=== PATIENT | female | born 1945 | race Caucasian/White ===

== ENCOUNTER 2017-03-28 00:56 | Emergency (ER) | payer OTHER ==
[~2017-03-28] VITALS: Ht 167.6 cm; Wt 77.0 kg
[~2017-03-28 00:56] MED LIST: ALPR-138 PO; CEPH500C3 PO; LEVO.1 PO
[2017-03-28 01:02] VITALS: BP 111/67; PULSE 96; RESP 16; TEMP 98.2; O2SAT 97
[2017-03-28] MEDS ORDERED: DIPHTH/TETANUS/ACEL PERTUSSIS (BOOSTER) 0.5 ML VIAL/PFS IM ONE (01:30)
[2017-03-28] MEDS ORDERED: LEVO.1 PO (01:39)
[2017-03-28] MEDS ORDERED: ALPR.25 PO (01:39)
[2017-03-28] MEDS ORDERED: METH10TA PO (01:39)
[2017-03-28] MEDS ORDERED: HYDR12.57 PO (01:39)
[2017-03-28] MEDS ORDERED: LISI10TA3 PO (01:39)
--- NOTE | 2017-03-28 01:43 | RADRPT ---
EXAM DATE/TIME: 03/28/2017 01:19 [facility] COMPARISON: No previous studies available for comparison. INDICATIONS : Pt has puncture wound to bottom of right foot- thinks may have stepped on a nail. Pain, redness and s welling x 3 days. MEDICAL HISTORY : None. SURGICAL HISTORY : Appendectomy. ENCOUNTER: Initial ACUITY: 3 days PAIN SCORE: 7/10 LOCATION: Right Foot FINDINGS: Three view examination of the right foot demonstrates no soft tissue swelling, dislocation, or fractu re. The tarsal bones appear intact. The interphalangeal and metatarsophalangeal joints are intact. The calcaneus is intact. Bony mineralization is normal. CONCLUSION: No acute fracture. No radiopaque foreign body. Edwardo Lehman MD on March 28, 2017 at 1:41 Board Certified Radiologist. This report was verified electronically.
[2017-03-28] MEDS ORDERED: BACT400T PO (01:53)
[2017-03-28] MEDS ORDERED: CEPH-460 PO (01:53)
--- NOTE | 2017-03-28 01:53 | PD ---
HPI Chief Complaint: Skin Problem Time Seen by Provider: 01:18 Travel History International Travel<30 days: No Contact w/Intl Traveler<30days: No Traveled to known affect area: No History of Present Illness HPI Patient is a 71-year-old female with a history of thyroid disorder presents emergency department for evaluation of right foot swelling and laceration on the plantar surface of her right foot. Patient states she was walking barefoot in the yard when she stepped on a board with stacy nails. This happened 2 days ago. She denies any fevers but noticed that her right foot is started to swallow. Denies any chest pain shortness of breath. Patient states that the entire wooden structure of the board was intact and doesn't think she has a splinter in her foot. Tetanus status is unknown. PFSH Past Medical History Anxiety: Yes Diminished Hearing: No Thyroid Disease: Yes (HYPOTHYROID) Tetanus Vaccination: > 5 Years Past Surgical History Appendectomy: Yes Other Surgery: Yes (NOSE RESECTION) Social History Alcohol Use: Yes (OCC) Tobacco Use: No Substance Use: No Allergies-Medications (Allergen,Severity, Reaction): Coded Allergies: No Known Allergies (Verified , 03/28/17) Reported Meds & Prescriptions Reported Meds & Active Scripts Active Bactrim (Sulfamethoxazole-Trimethoprim) 400-80 Mg Tab 1 Tab PO BID 7 Days Keflex (Cephalexin) 500 Mg Cap 500 Mg PO Q6H 7 Days Reported Hydrochlorothiazide 12.5 Mg Cap 12.5 Mg PO DAILY Lisinopril 10 Mg Tab 10 Mg PO DAILY Xanax (Alprazolam) 0.25 Mg Tab 0.25 Mg PO BID PRN Methadone (Methadone HCl) 10 Mg Tab 10 Mg PO BID Synthroid (Levothyroxine Sodium) 100 Mcg Tab 100 Mcg PO DAILY Review of Systems Except as stated in HPI: all other systems reviewed are Neg Physical Exam Narrative GENERAL: Well-developed well-nourished no apparent distress. SKIN: Focused skin assessment warm/dry. HEAD: Atraumatic. Normocephalic. EYES: Pupils equal and round. No scleral icterus. No injection or drainage. ENT: No nasal bleeding or discharge. Mucous membranes pink and moist. NECK: Trachea midline. No JVD. CARDIOVASCULAR: Regular rate and rhythm. No murmur appreciated. RESPIRATORY: No accessory muscle use. Clear to auscultation. Breath sounds equal bilaterally. GASTROINTESTINAL: Abdomen soft, non-tender, nondistended. Hepatic and splenic margins not palpable. MUSCULOSKELETAL: No obvious deformities. No clubbing. No cyanosis. Minimal edema of the right foot alone, no extension proximally to the ankle, there is perhaps a minimal amount of cellulitis, no bony tenderness, there is a 2 cm laceration already scabbed on the plantar surface of the foot in the midfoot. No foreign body is seen. No discharge seen. NEUROLOGICAL: Awake and alert. No obvious cranial nerve deficits. Motor grossly within normal limits. Normal speech. PSYCHIATRIC: Appropriate mood and affect; insight and judgment normal. Data Data Last Documented VS Vital Signs Date Time Temp Pulse Resp B/P Pulse Ox O2 Delivery O2 Flow Rate FiO2 03/28/17 01:02 98.2 96 16 111/67 97 Room Air Orders Uhnt-Gms-Nhxaba (Booster) Inj (Boostrix (03/28/17 01:30) Foot, Complete (Uba2ilm) (03/28/17 ) Cephalexin (Keflex) (03/28/17 02:00) Sulfamet-Trimeth Ds 800-160 Mg (Bactrim (03/28/17 02:00) MDM Medical Decision Making Medical Screen Exam Complete: Yes Emergency Medical Condition: Yes Differential Diagnosis Early cellulitis, normal wound healing, deep hematoma, retained foreign body seems less likely. Narrative Course Patient roomed in emergency department, no indication for wound closure at this time. Patient appears well afebrile foot is fairly unimpressive. X-ray shows no bony abnormality and no retained foreign body. Discussed with the patient him. Antibiotics and return to ED criteria. She is agreeable. Stable for discharge. Tetanus was updated prior to discharge. She was offered pain medicine and declined. Diagnosis Primary Impression: Laceration of right foot Qualified Code: S91.311A - Laceration of right foot, initial encounter Med/Other Pt SpecificInfo: Prescription(s) given Scripts Sulfamethoxazole-Trimethoprim (Bactrim)400-80 Mg Tab1 Tab PO BID 7 Days Ref 0 Prov:Britton Arreola MD 03/28/17 Cephalexin (Keflex)500 Mg Arm552 Mg PO Q6H 7 Days Ref 0 Prov:Britton Arreola MD 03/28/17 Disposition: DISCHARGE HOME Condition: Stable Britton Arreola MD Mar 28, 2017 01:53
[2017-03-28] MEDS ORDERED: CEPHALEXIN MONOHYDRATE 500 MG CAP PO ONE (02:00)
[2017-03-28] MEDS ORDERED: SULFAMETHOXAZOLE-TRIMETHOPRIM DS 800-160 MG TAB PO ONE (02:00)
== END 2017-03-28 02:20 | disposition home or self-care (01) ==
LOC: NEPC 00:56
DX: S91.311A Laceration without foreign body, right foot, initial encounter (principal); W45.8XXA Other foreign body or object entering through skin, initial encounter; E03.9 Hypothyroidism, unspecified
CPT/HCPCS: 73630; 90471; 90715; 99284

== ENCOUNTER 2017-11-27 20:36 | Emergency (ER) | payer MEDICARE, OTHER ==
[~2017-11-27] VITALS: Ht 165.1 cm; Wt 72.5 kg
[~2017-11-27 20:36] MED LIST changes: -ALPR-138 PO; +ALPR.25 PO; +BACT400T PO; +CEPH-460 PO; -CEPH500C3 PO; +HYDR12.57 PO; +LISI10TA3 PO; +METH10TA PO
[2017-11-27 22:11] VITALS: BP 134/63; PULSE 84; TEMP 97.6; O2SAT 98
[2017-11-28] MEDS ORDERED: CEPH-460 PO (17:56)
== END 2017-11-27 23:40 | disposition left against medical advice (07) ==
LOC: NEPE 20:36
DX: M79.604 Pain in right leg (principal)
CPT/HCPCS: 99281

== ENCOUNTER 2017-11-28 12:22 | Emergency (ER) | payer MEDICARE, OTHER ==
[~2017-11-28] VITALS: Ht 157.5 cm; Wt 70.0 kg
[~2017-11-28 12:22] MED LIST changes: -BACT400T PO; -CEPH-460 PO
[2017-11-28 14:05] VITALS: BP 126/75; PULSE 104; RESP 18; TEMP 98.4; O2SAT 99
[2017-11-28 16:30] VITALS: RESP 16; O2SAT 99
--- NOTE | 2017-11-28 16:39 | PD ---
HPI Chief Complaint: Edema Time Seen by Provider: 16:25 Travel History International Travel<30 days: No Contact w/Intl Traveler<30days: No Traveled to known affect area: No History of Present Illness HPI 72-year-old female presents emergency department with increasing edema , pain, and erythema in the right lower extremity. Patient feels he may have been bitten by an insect several days ago, and she states she scratched her leg "a lot" she denies fever, chills, shortness of breath. Patient has mild lower extremity edema normally. Patient is a poor historian. Her pain is worse with palpation and ambulation. Pain is rated as a 6 out of 10. Worse with ambulation. Patient has no known drug allergies. PFSH Past Medical History Anxiety: Yes Diminished Hearing: No Hypertension: Yes Thyroid Disease: Yes (HYPOTHYROID) Tetanus Vaccination: > 5 Years Influenza Vaccination: Yes Past Surgical History Appendectomy: Yes Other Surgery: Yes (NOSE RESECTION) Social History Alcohol Use: Yes ([facility]) Tobacco Use: No (quit 1997) Substance Use: No Allergies-Medications (Allergen,Severity, Reaction): Coded Allergies: No Known Allergies (Verified Adverse Reaction, Unknown, 11/28/17) Reported Meds & Prescriptions Reported Meds & Active Scripts Active Keflex (Cephalexin) 500 Mg Cap 500 Mg PO Q8H Reported Hydrochlorothiazide 12.5 Mg Cap 12.5 Mg PO DAILY Lisinopril 10 Mg Tab 10 Mg PO DAILY Xanax (Alprazolam) 0.25 Mg Tab 0.25 Mg PO BID PRN Methadone (Methadone HCl) 10 Mg Tab 10 Mg PO BID Synthroid (Levothyroxine Sodium) 100 Mcg Tab 100 Mcg PO DAILY Review of Systems Except as stated in HPI: all other systems reviewed are Neg General / Constitutional: No: Fever Eyes: No: Visual changes HENT: No: Headaches Cardiovascular: No: Chest Pain or Discomfort Respiratory: No: Shortness of Breath Gastrointestinal: No: Abdominal Pain Genitourinary: No: Dysuria Musculoskeletal: Positive: Myalgias, Edema, Pain, No: Arthralgias, Limited ROM Skin: No Rash Neurologic: No: Weakness Psychiatric: No: Depression Endocrine: No: Polydipsia Hematologic/Lymphatic: No: Easy Bruising Physical Exam Narrative GENERAL: Patient appears in no acute distress. SKIN: Warm and dry. Normal color. Normal turgor. Patient has superficial abrasion to the right anterior perrin. Right lower leg has 2+ pitting edema with tenderness to the posterior calf as well. HEAD: Atraumatic. Normocephalic. EYES: Pupils equal and round. No scleral icterus. No injection or drainage. ENT: No nasal bleeding or discharge. Mucous membranes pink and moist. Pharynx is clear. Airways patent NECK: Trachea midline. Supple nontender. CARDIOVASCULAR: Regular rate and rhythm. No murmurs gallops or rubs. RESPIRATORY: No accessory muscle use. Clear to auscultation. Breath sounds equal bilaterally. GASTROINTESTINAL: Abdomen soft, non-tender, nondistended. Hepatic and splenic margins not palpable. MUSCULOSKELETAL: Extremities without clubbing, cyanosis, or 2+ pitting edema to the right lower leg and foot. No obvious deformities. NEUROLOGICAL: Awake and alert. No obvious cranial nerve deficits. Motor grossly within normal limits. Five out of 5 muscle strength in the arms and legs. Normal speech. PSYCHIATRIC: Appropriate mood and affect; insight and judgment normal. Data Data Last Documented VS Vital Signs Date Time Temp Pulse Resp B/P (MAP) Pulse Ox O2 Delivery O2 Flow Rate FiO2 11/28/17 16:30 16 99 Room Air 11/28/17 14:05 98.4 104 126/75 (92) Orders Orders Complete Blood Count With Diff (11/28/17 16:31) Comprehensive Metabolic Panel (11/28/17 16:31) Prothrombin Time / Inr (Pt) (11/28/17 16:31) Act Partial Throm Time (Ptt) (11/28/17 16:31) Chest, Single Ap (11/28/17 16:31) Ecg Monitoring (11/28/17 16:31) Iv Access Insert/Monitor (11/28/17 16:31) Oximetry (11/28/17 16:31) Sodium Chloride 0.9% Flush (Ns Flush) (11/28/17 16:45) Sodium Chlorid 0.9% 500 Ml Inj (Ns 500 M (11/28/17 16:45) Us Leg Venous Doppler (11/28/17 16:31) Cefazolin 2 Gm Premix (Ancef 2 Gm Premix (11/28/17 17:45) Labs Laboratory Tests Test 11/28/17 16:30 White Blood Count 6.0 TH/MM3 Red Blood Count 3.40 MIL/MM3 Hemoglobin 11.2 GM/DL Hematocrit 31.7 % Mean Corpuscular Volume 93.3 FL Mean Corpuscular Hemoglobin 33.1 PG Mean Corpuscular Hemoglobin Concent 35.5 % Red Cell Distribution Width 15.3 % Platelet Count 250 TH/MM3 Mean Platelet Volume 8.1 FL Neutrophils (%) (Auto) 46.6 % Lymphocytes (%) (Auto) 39.5 % Monocytes (%) (Auto) 11.5 % Eosinophils (%) (Auto) 2.2 % Basophils (%) (Auto) 0.2 % Neutrophils # (Auto) 2.8 TH/MM3 Lymphocytes # (Auto) 2.4 TH/MM3 Monocytes # (Auto) 0.7 TH/MM3 Eosinophils # (Auto) 0.1 TH/MM3 Basophils # (Auto) 0.0 TH/MM3 CBC Comment DIFF FINAL Differential Comment Prothrombin Time 10.3 SEC Prothromb Time International Ratio 1.0 RATIO Activated Partial Thromboplast Time 26.0 SEC Blood Urea Nitrogen 24 MG/DL Creatinine 1.39 MG/DL Random Glucose 88 MG/DL Total Protein 6.3 GM/DL Albumin 2.8 GM/DL Calcium Level 7.9 MG/DL Alkaline Phosphatase 76 U/L Aspartate Amino Transf (AST/SGOT) 14 U/L Alanine Aminotransferase (ALT/SGPT) 15 U/L Total Bilirubin 0.1 MG/DL Sodium Level 141 MEQ/L Potassium Level 3.6 MEQ/L Chloride Level 107 MEQ/L Carbon Dioxide Level 25.6 MEQ/L Anion Gap 8 MEQ/L Estimat Glomerular Filtration Rate 37 ML/MIN MDM Medical Decision Making Medical Screen Exam Complete: Yes Emergency Medical Condition: Yes Medical Record Reviewed: Yes Differential Diagnosis Right lower leg edema. Cellulitis. DVT. Narrative Course Patient appears medically stable at time of exam. Labs ordered including CBC, CMP, and coagulation studies. Ultrasound of the right lower extremity is ordered to rule out DVT. CBC is unremarkable except for mild anemia with a hemoglobin of 11.2. CMP significant for BUN of 24, creatinine 1.39, GFR 37, calcium 7.9, total bili 0.1, AST is 14, ALT 15, total protein 6.3, albumin is 2.8. Coagulation studies are normal. Ultrasound shows no signs of DVT or abscess. Patient is given 2 g Ancef IV. Patient will be continued on Keflex 500 mg 3 times daily 7 days. Patient is to keep the right leg elevated as much as possible. Patient to follow-up with her primary care physician or return emergency department if symptoms worsen Diagnosis Primary Impression: Cellulitis of right lower limb Referrals: Primary Care Physician Patient Instructions: Cellulitis (ED), General Instructions Additional Instructions: CBC is unremarkable except for mild anemia with a hemoglobin of 11.2. CMP significant for BUN of 24, creatinine 1.39, GFR 37, calcium 7.9, total bili 0.1, AST is 14, ALT 15, total protein 6.3, albumin is 2.8. Coagulation studies are normal. Ultrasound shows no signs of DVT or abscess. Patient is given 2 g Ancef IV. Patient will be continued on Keflex 500 mg 3 times daily 7 days. Patient is to keep the right leg elevated as much as possible. Patient to follow-up with her primary care physician or return emergency department if symptoms worsen Scripts Cephalexin (Keflex) 500 Mg Cap 500 MG PO Q8H for Infection, #30 CAP 0 Refills Prov: Josh Vargas MD 11/28/17 Disposition: 01 DISCHARGE HOME Condition: Stable José Miguel Stacy Nov 28, 2017 16:39
[2017-11-28] MEDS ORDERED: SODIUM CHLORID 0.9% 500 ML INJ 500 ML IV ONE (16:45)
[2017-11-28] MEDS: SODIUM CHLORIDE 0.9% FLUSH 10 ML FLUSH IVF PRN ×2 (16:53→17:40)
[2017-11-28 17:28] LABS: AUTOMATED NEUTROPHIL # 2.8 TH/MM3 (1.8-7.7); BASOPHIL % 0.2 % (0.0-2.0); EOSINOPHIL # 0.1 TH/MM3 (0-0.4); EOSINOPHIL % 2.2 % (0.0-4.0); HEMATOCRIT 31.7 % (35.0-46.0); HEMOGLOBIN 11.2 GM/DL (11.6-15.3); LYMPH % 39.5 % (9.0-44.0); LYMPHOCYTE # 2.4 TH/MM3 (1.0-4.8); MEAN CELL VOLUME 93.3 FL (80.0-100.0); MEAN CORPUSCULAR HEMOGLOBIN 33.1 PG (27.0-34.0); MEAN CORPUSCULAR HGB CONC 35.5 % (32.0-36.0); MEAN PLATELET VOLUME 8.1 FL (7.0-11.0); MONO % 11.5 % (0.0-8.0); MONOCYTE # 0.7 TH/MM3 (0-0.9); NEUT % 46.6 % (16.0-70.0); PLATELET COUNT 250 TH/MM3 (150-450); RED CELL DISTRIBUTION WIDTH 15.3 % (11.6-17.2)
--- NOTE | 2017-11-28 17:30 | RADRPT ---
EXAM DATE/TIME: 11/28/2017 16:45 [facility] COMPARISON: No previous studies available for comparison. INDICATIONS : Right leg pain. MEDICAL HISTORY : Hypothyroidism. Hypertension. Glasses. Anxiety. Alcohol use. SURGICAL HISTORY : Appendectomy. Nose resection. ENCOUNTER: Subsequent ACUITY: 1 day PAIN SCORE: 3/10 LOCATION: Right leg. TECHNIQUE: Venous ultrasound of the leg was performed from the inguinal ligament to the proximal calf. Real-danelle e, color Doppler and spectral tracing, compression and augmentation techniques were used. FINDINGS: There is normal compressibility of the deep venous system from the inguinal region to the proximal ca lf. No echogenic clot is seen in the lumen of the common femoral, femoral, popliteal, and posterior tibial veins. There is a normal response of the venous system to proximal and distal augmentation an d respiration. CONCLUSION: Normal examination. Du Rodriguez MD on November 28, 2017 at 17:28 Board Certified Radiologist. This report was verified electronically.
[2017-11-28 17:44] LABS: ALBUMIN 2.8 GM/DL (3.4-5.0); ALT (GPT) 15 U/L (10-53); AST (GOT) 14 U/L (15-37); BICARBONATE 25.6 MEQ/L (21.0-32.0); BLOOD UREA NITROGEN 24 MG/DL (7-18); CALCIUM 7.9 MG/DL (8.5-10.1); CHLORIDE 107 MEQ/L (98-107); CREATININE 1.39 MG/DL (0.50-1.00); GLOMERULAR FILTRATION RATE 37 ML/MIN (>89); GLUCOSE,RANDOM 88 MG/DL (74-106); SODIUM (NA) 141 MEQ/L (136-145)
--- NOTE | 2017-11-28 17:44 | RADRPT ---
EXAM DATE/TIME: 11/28/2017 17:01 [facility] COMPARISON: No previous studies available for comparison. INDICATIONS : Coughing. Right lower leg swelling. MEDICAL HISTORY : Hypertension. SURGICAL HISTORY : None. ENCOUNTER: Initial ACUITY: 2 weeks PAIN SCORE: 0/10 LOCATION: Bilateral chest FINDINGS: A single portable frontal view the chest shows bibasilar interstitial opacities more pronounced on th e left. No effusions. Heart is normal in size. Lung apices are partially obscured by the patient's ch in and soft tissues. A degenerative thoracic spine. CONCLUSION: Bibasilar interstitial opacities without intra-alveolar infiltrates. This could relate to chronic int erstitial change. I cannot exclude interstitial edema. Leon Davenport Jr., MD on November 28, 2017 at 17:41 Board Certified Radiologist. This report was verified electronically.
[2017-11-28] MEDS ORDERED: ceFAZolin 2 GM PREMIX 50 ML IV ONE (17:45)
[2017-11-28 17:46] LABS: ALKALINE PHOSPHATASE 76 U/L (45-117); TOTAL BILIRUBIN ADULT 0.1 MG/DL (0.2-1.0); TOTAL PROTEIN 6.3 GM/DL (6.4-8.2)
[2017-11-28 17:49] LABS: PROTHROMBIN TIME - PATIENT 10.3 SEC (9.8-11.6)
[2017-11-28] MEDS ORDERED: CEPH-460 PO (17:56)
== END 2017-11-28 18:56 | disposition home or self-care (01) ==
LOC: NEPD 12:22
DX: L03.115 Cellulitis of right lower limb (principal); M79.604 Pain in right leg; F41.9 Anxiety disorder, unspecified; I10 Essential (primary) hypertension; E03.9 Hypothyroidism, unspecified; Z87.891 Personal history of nicotine dependence
CPT/HCPCS: 71045; 80053; 85025; 85610; 85730; 93971; 96361; 96365; 99284; J0690; J7040

== ENCOUNTER 2017-12-03 16:43 | Emergency (ER) | payer MEDICARE, OTHER ==
[~2017-12-03] VITALS: Ht 167.6 cm; Wt 70.0 kg
[~2017-12-03 16:43] MED LIST changes: +CEPH-460 PO
[2017-12-03 17:06] VITALS: BP 177/74; PULSE 105; RESP 18; TEMP 97.8; O2SAT 96
[2017-12-03] MEDS ORDERED: CLINDAMYCIN PHOS 600 MG/4 ML VIAL IM ONE (19:30)
[2017-12-03] MEDS ORDERED: CLIN300C5 PO (19:30)
--- NOTE | 2017-12-03 19:30 | PD ---
HPI Chief Complaint: Edema Time Seen by Provider: 18:57 Travel History International Travel<30 days: No Contact w/Intl Traveler<30days: No Traveled to known affect area: No History of Present Illness HPI Is a 72-year-old woman who presents to the emergency department apparently intoxicated, speaking a little bit of gibberish, complaining of her right leg being swollen. She has been diagnosed with cellulitis. She was prescribed Keflex. She has been started on antibiotics. She has 1/5 of vodka in her purse and also a bottle of Keflex, which is dated in July. Unclear if Keflex is what is in the bottle or not. History Past Medical History Narrative Medical Anxiety and depression Hypertension Hypothyroidism Social History Alcohol Use: Yes ([facility]) Tobacco Use: No (quit 1997) Allergies-Medications (Allergen,Severity, Reaction): Coded Allergies: No Known Allergies (Verified Adverse Reaction, Unknown, 12/03/17) Reported Meds & Prescriptions Reported Meds & Active Scripts Active Keflex (Cephalexin) 500 Mg Cap 500 Mg PO Q8H Reported Hydrochlorothiazide 12.5 Mg Cap 12.5 Mg PO DAILY Lisinopril 10 Mg Tab 10 Mg PO DAILY Xanax (Alprazolam) 0.25 Mg Tab 0.25 Mg PO BID PRN Methadone (Methadone HCl) 10 Mg Tab 10 Mg PO BID Synthroid (Levothyroxine Sodium) 100 Mcg Tab 100 Mcg PO DAILY Review of Systems ROS Limitations: Clinical Condition Physical Exam Narrative GENERAL: 72-year-old woman, possibly intoxicated, no acute distress. SKIN: Warm and dry. CARDIOVASCULAR: Warm and well perfused. RESPIRATORY: Normal rate and effort. MUSCULOSKELETAL: She has got edema and swelling the right lower extremity. A little bit of erythema warmth. NEUROLOGICAL: Awake and alert. No gross deficits. Data Data Last Documented VS Vital Signs Date Time Temp Pulse Resp B/P (MAP) Pulse Ox O2 Delivery O2 Flow Rate FiO2 12/03/17 17:06 97.8 105 18 177/74 (108) 96 Orders Orders Clindamycin Inj (Cleocin Inj) (12/03/17 19:30) MDM Medical Decision Making Medical Screen Exam Complete: Yes Emergency Medical Condition: Yes Differential Diagnosis Cellulitis, edema, lymphedema, other Narrative Course Medical decision making 72-year-old woman with known cellulitis in the right. She may be intoxicated. Unclear she filled her antibiotic prescriptions or not. She does not look unwell. Diagnosis Primary Impression: Left leg swelling Additional Instructions: Keep leg elevated. Keep leg wrapping up on her feet. Take antibiotics as prescribed. Follow-up with a primary doctor. Med/Other Pt SpecificInfo: Prescription(s) given Scripts Clindamycin (Clindamycin) 300 Mg Cap 300 MG PO TID for Infection, #21 CAP 0 Refills Prov: Mat Hinton MD 12/03/17 Disposition: 01 DISCHARGE HOME Condition: Stable Mat Hinton MD Dec 03, 2017 19:30
== END 2017-12-03 19:53 | disposition home or self-care (01) ==
LOC: NEPD 16:43
DX: M79.89 Other specified soft tissue disorders (principal); F41.9 Anxiety disorder, unspecified; F32.9 Major depressive disorder, single episode, unspecified; I10 Essential (primary) hypertension; E03.9 Hypothyroidism, unspecified; Z79.899 Other long term (current) drug therapy; Z87.891 Personal history of nicotine dependence
CPT/HCPCS: 96372

== ENCOUNTER 2018-07-18 17:12 | Inpatient (IN) ==
[~2018-07-18 17:12] MED LIST changes: -ALPR.25 PO; -CEPH-460 PO; -HYDR12.57 PO; -LEVO.1 PO; -LISI10TA3 PO; -METH10TA PO; +Magnesium Sulfate Inj 40 MEQ/10 ML Vial IV.SIG ONE; +Norepinephrine Inj 4 MG/4 ML Ampul IV.CONT ONE
[2018-07-18] MEDS ORDERED: Sodium Chlor 0.9% Inj 500 ML IV.SIG ONE (17:22)
--- NOTE | 2018-07-18 17:30 | ED ---
HPI General Chief Complaint: Cardiac Arrest/CPR Stated Complaint: cardiac arrest Time Seen by Provider: 07/18/18 17:21 Source: EMS Mode of arrival: EMS Limitations: other History of Present Illness HPI narrative: Last time the patient was seen alive was at least 2-1/2 hours ago. EMS arrived at a private home found the patient in asystole with lots of black emesis around mouth, chest and floor. EMS initiated ACLS place the Combitube gave 2 rounds of epi 1 bicarb and got spontaneous return of circulation and started to transport the patient over. Right asked the ambulance pulled into the [facility] stated that patient lost her pulse. At this time compressions resumed and patient was brought into room 20. Upon arrival in room 20 high-quality CPR compressions were continued, 1 mg of epinephrine given via left IV the left IO was not used. After approximately 2 minutes of CPR we had ROSC. Patient was then intubated and started on norepinephrine drip complaint: Reports found unresponsive Place: home AED applied by bystander/electrical development engineer: No Shock advised: No Initial findings in the field: unresponsive, no respirations, no pulse and other rhythm (Asystole) ROSC in the field: Yes Associated injuries: No Treatments prior to arrival: Reports other airway device (Combitube), epinephrine mgs # (2) and sodium bicarbonate (50MEQ) Related Data Allergies Allergy/AdvReac Type Severity Reaction Status Date / Time No Known Allergies AdvReac Unknown Uncoded 12/03/17 17:06 Review of Systems ROS Unobtainable ROS Unobtainable: other (Unable due to cardiac arrest) PMFSH Social History Social History Substance History: No History of Abuse and Unable to Obtain Second Hand Smoke Exposure: No Smoking Status: Former smoker Tobacco Type: Cigarettes How Often Do You Have a Drink Containing Alcohol: Never Recent Travel in [facility] within the Last 8 Weeks: No Recent Out of Country Travel within the Last 8 Weeks: No Exam Narrative Exam Narrative: GENERAL: Status post arrest, female pale with dried blood over her oropharynx SKIN: Pale, cold to touch HEAD: Atraumatic. Normocephalic. EYES: Pupils 4 mm bilaterally fixed dilated sluggish ENT: Mucous membranes pale, dry NECK: Trachea midline. No JVD. CARDIOVASCULAR: No pulse (s/p return of pulses after 1 round of epi) RESPIRATORY: No spontaneous respirations GASTROINTESTINAL: Abdomen distended, distended veins on abdomen c/w caput medusa . No rebound or guarding MUSCULOSKELETAL: Pale extremities . No obvious deformities. NEUROLOGICAL: GCS 3 T(COMBITUBE) Course Initial Documented Vital Signs Pulse Rate 120 H 07/18/18 17:14 Blood Pressure 172/82 H 07/18/18 17:14 Pulse Oximetry 99 07/18/18 17:14 Last Documented Vital Signs Pulse Rate 106 H 07/18/18 17:48 Respiratory Rate 18 07/18/18 17:48 Blood Pressure 147/70 H 07/18/18 17:48 Pulse Oximetry 100 07/18/18 17:43 Procedures Intubation Time Out Performed: No Sedative: none Laryngoscope: Orion ET Tube Size: 7.5 ET Tube Uncuffed: No Tube Secured Depth (cm): 23 Tube Secured Location: lips Tube Placement Confirmation: visualized tube passing through cords, equal breath sounds bilaterally, no breath sounds over epigastrium and confirmation by capnometry Patient Tolerated Procedure: no complications Intubation Complications: none Critical Care Time Critical Care Time: Yes Total Critical Care Time: 45 Attestation: Aggregate critical care time was 45 minutes. Time to perform other separately billable procedures was not included in the critical care time. My time did not include minutes spent treating any other patients simultaneously or on activities that did not directly contribute to the patient's treatment. The services I provided to this patient were to treat and/or prevent clinically significant deterioration I provided critical care services requiring my management, as noted below: Chart data review, documentation time, medication orders and management, vital sign assessments/reviewing monitor data, ordering and reviewing lab tests, ordering and interpreting/reviewing x-rays and diagnostic studies, care of the patient and discussion of the patient with the admitting physicians. Medical Decision Making MDM Narrative Medical decision making narrative: Alcohol level 157 Tox screen positive for benzo Coagulation profile is normal Reactive leukocytosis of 20,000 without any left shift, no anemia H&H of 11.7/37 , normal platelet count of 320,000. Sodium potassium and chloride are within normal limits, bicarb is 21, anion gap of 19, BUN of 30, creatinine 1.7. Random glucose of 203, calcium was 7.2 AST elevated at 634, ALT elevated at 392, normal alk phos of 89, normal bilirubin of 0.2. Elevated troponin 0.08 Low albumin of 2.3 and low total protein 5.8 There is some findings that are consistent with shock liver versus alcoholic liver cirrhosis clinically with upper GI bleed. However apparently the GI bleeding does not appear to be profuse and there is no evidence of anemia on initial evaluation. Patient is on mechanical ventilation currently, 100% saturations, respiratory rate 18, not requiring any sedation, pulse of 106, blood pressure 147/70 on norepinephrine drip. Case already discussed with brick stacker at [facility] Dr. Henry who accepted the transfer and requested a CT head and CT PE be performed prior to transfer. At [address] suite with studies performed and patient will be transferred to [facility]. Medical Screen Exam Complete: Yes Emergency Medical Condition: Yes Lab Data Result diagrams: 07/18/18 17:21 07/18/18 17:21 Lab Results 07/18/18 07/18/18 07/18/18 Range/Units 17:00 17:00 17:20 CBC w Diff WBC (4.0-11.0) th/mm3 RBC (4.00-5.30) mil/mm3 Hgb (11.6-15.3) gm/dL Hct (35.0-46.0) % MCV (80.0-100.0) fL MCH (27.0-34.0) pg MCHC (32.0-36.0) % RDW (11.6-17.2) % Plt Count (150-450) th/mm3 MPV (7.0-11.0) fL Neut % (Auto) (16.0-70.0) % Lymph % (Auto) (9.0-44.0) % [place] % (Auto) (0.0-8.0) % Eos % (Auto) (0.0-4.0) % Baso % (Auto) (0.0-2.0) % Neut # (Auto) (1.8-7.7) th/mm3 Lymph # (Auto) (1.0-4.8) th/mm3 [place] # (Auto) (0.0-0.9) th/mm3 Eos # (Auto) (0.0-0.4) th/mm3 Baso # (Auto) (0.0-0.2) th/mm3 WBC Differential Seg Neuts % (Manual) (16-70) % Band Neuts % (Manual) (0-6) % Lymphocytes % (Manual) (9-44) % Monocytes % (Manual) (0-8) % Abs Neuts (Manual) (1.8-7.7) th/mm3 Nucleated RBCs/100 WBC (0-0) /100 WBC Differential Comment Platelet Estimate (Normal) Platelet Morphology (Normal) RBC Morphology (Normal) PT (9.8-11.6) sec INR Ratio APTT (24.3-30.1) sec Sodium (136-145) meq/L Potassium (3.5-5.1) meq/L Chloride (98-107) meq/L Carbon Dioxide (21.0-32.0) meq/L Anion Gap (5-15) meq/L BUN (7-18) mg/dL Creatinine (0.50-1.00) mg/dL Estimated GFR (>89) mL/min Random Glucose (74-106) mg/dL Calcium (8.5-10.1) mg/dL Prot Corrected Calcium (8.5-10.1) mg/dL Total Bilirubin (0.2-1.0) mg/dL AST (15-37) U/L ALT (10-53) U/L Alkaline Phosphatase (45-117) U/L Ammonia 41 H (11-32) mcmol/L Total Creatine Kinase 204 H (26-192) U/L Troponin I 0.11 H (0.02-0.05) ng/mL Total Protein (6.4-8.2) g/dL Albumin (3.4-5.0) g/dL Urine Opiates Screen (Neg) Ur Barbiturates Screen (Neg) Ur Amphetamines Screen (Neg) U Benzodiazepines Scrn (Neg) Urine Cocaine Screen (Neg) U Cannabinoids Screen (Neg) Serum Alcohol (0-5) mg/dL 07/18/18 07/18/18 07/18/18 Range/Units 17:21 17:21 17:21 CBC w Diff Slide review pending WBC 20.0 H (4.0-11.0) th/mm3 RBC 3.85 L (4.00-5.30) mil/mm3 Hgb 11.7 (11.6-15.3) gm/dL Hct 37.0 (35.0-46.0) % MCV 96.1 (80.0-100.0) fL MCH 30.5 (27.0-34.0) pg MCHC 31.7 L (32.0-36.0) % RDW 16.3 (11.6-17.2) % Plt Count 320 (150-450) th/mm3 MPV 7.6 (7.0-11.0) fL Neut % (Auto) 36.6 (16.0-70.0) % Lymph % (Auto) 56.8 H (9.0-44.0) % [place] % (Auto) 5.3 (0.0-8.0) % Eos % (Auto) 0.6 (0.0-4.0) % Baso % (Auto) 0.7 (0.0-2.0) % Neut # (Auto) 7.3 (1.8-7.7) th/mm3 Lymph # (Auto) 11.3 H (1.0-4.8) th/mm3 [place] # (Auto) 1.1 H (0.0-0.9) th/mm3 Eos # (Auto) 0.1 (0.0-0.4) th/mm3 Baso # (Auto) 0.1 (0.0-0.2) th/mm3 WBC Differential Manual diff final Seg Neuts % (Manual) 28 (16-70) % Band Neuts % (Manual) 4 (0-6) % Lymphocytes % (Manual) 58 H (9-44) % Monocytes % (Manual) 10 H (0-8) % Abs Neuts (Manual) 6.4 (1.8-7.7) th/mm3 Nucleated RBCs/100 WBC 1 H (0-0) /100 WBC Differential Comment . Platelet Estimate Normal (Normal) Platelet Morphology Normal (Normal) RBC Morphology Normal (Normal) PT 10.7 (9.8-11.6) sec INR 1.1 Ratio APTT 29.6 (24.3-30.1) sec Sodium 145 (136-145) meq/L Potassium 3.9 (3.5-5.1) meq/L Chloride 105 (98-107) meq/L Carbon Dioxide 20.8 L (21.0-32.0) meq/L Anion Gap 19 H (5-15) meq/L BUN 30 H (7-18) mg/dL Creatinine 1.70 H (0.50-1.00) mg/dL Estimated GFR 30 L (>89) mL/min Random Glucose 203 H (74-106) mg/dL Calcium 7.2 L* (8.5-10.1) mg/dL Prot Corrected Calcium 7.9 L (8.5-10.1) mg/dL Total Bilirubin 0.2 (0.2-1.0) mg/dL AST 634 H (15-37) U/L ALT 392 H (10-53) U/L Alkaline Phosphatase 89 (45-117) U/L Ammonia (11-32) mcmol/L Total Creatine Kinase (26-192) U/L Troponin I 0.08 H (0.02-0.05) ng/mL Total Protein 5.8 L (6.4-8.2) g/dL Albumin 2.3 L (3.4-5.0) g/dL Urine Opiates Screen (Neg) Ur Barbiturates Screen (Neg) Ur Amphetamines Screen (Neg) U Benzodiazepines Scrn (Neg) Urine Cocaine Screen (Neg) U Cannabinoids Screen (Neg) Serum Alcohol 157 H (0-5) mg/dL 07/18/18 Range/Units 17:53 CBC w Diff WBC (4.0-11.0) th/mm3 RBC (4.00-5.30) mil/mm3 Hgb (11.6-15.3) gm/dL Hct (35.0-46.0) % MCV (80.0-100.0) fL MCH (27.0-34.0) pg MCHC (32.0-36.0) % RDW (11.6-17.2) % Plt Count (150-450) th/mm3 MPV (7.0-11.0) fL Neut % (Auto) (16.0-70.0) % Lymph % (Auto) (9.0-44.0) % [place] % (Auto) (0.0-8.0) % Eos % (Auto) (0.0-4.0) % Baso % (Auto) (0.0-2.0) % Neut # (Auto) (1.8-7.7) th/mm3 Lymph # (Auto) (1.0-4.8) th/mm3 [place] # (Auto) (0.0-0.9) th/mm3 Eos # (Auto) (0.0-0.4) th/mm3 Baso # (Auto) (0.0-0.2) th/mm3 WBC Differential Seg Neuts % (Manual) (16-70) % Band Neuts % (Manual) (0-6) % Lymphocytes % (Manual) (9-44) % Monocytes % (Manual) (0-8) % Abs Neuts (Manual) (1.8-7.7) th/mm3 Nucleated RBCs/100 WBC (0-0) /100 WBC Differential Comment Platelet Estimate (Normal) Platelet Morphology (Normal) RBC Morphology (Normal) PT (9.8-11.6) sec INR Ratio APTT (24.3-30.1) sec Sodium (136-145) meq/L Potassium (3.5-5.1) meq/L Chloride (98-107) meq/L Carbon Dioxide (21.0-32.0) meq/L Anion Gap (5-15) meq/L BUN (7-18) mg/dL Creatinine (0.50-1.00) mg/dL Estimated GFR (>89) mL/min Random Glucose (74-106) mg/dL Calcium (8.5-10.1) mg/dL Prot Corrected Calcium (8.5-10.1) mg/dL Total Bilirubin (0.2-1.0) mg/dL AST (15-37) U/L ALT (10-53) U/L Alkaline Phosphatase (45-117) U/L Ammonia (11-32) mcmol/L Total Creatine Kinase (26-192) U/L Troponin I (0.02-0.05) ng/mL Total Protein (6.4-8.2) g/dL Albumin (3.4-5.0) g/dL Urine Opiates Screen Neg (Neg) Ur Barbiturates Screen Neg (Neg) Ur Amphetamines Screen Neg (Neg) U Benzodiazepines Scrn Pos H (Neg) Urine Cocaine Screen Neg (Neg) U Cannabinoids Screen Neg (Neg) Serum Alcohol (0-5) mg/dL Discharge Plan Discharge Disposition Patient Disposition: 02 Transfer To [facility] Discharge Condition Condition: Critical Discharge Details Diagnosis: Signs of return of spontaneous circulation, Cardiac arrest Physicians Team ED Provider: Jonathan Pascual Primary Care Provider: UNKNOWN, Attending Provider: Urbano Henry Status ED Status: Admitted Patient
[2018-07-18 17:32] LABS: Baso # (Auto) 0.1 th/mm3 (0.0-0.2); Baso % (Auto) 0.7 % (0.0-2.0); Eos # (Auto) 0.1 th/mm3 (0.0-0.4); Eos % (Auto) 0.6 % (0.0-4.0); Hemoglobin 11.7 gm/dL (11.6-15.3); Lymph # (Auto) 11.3 th/mm3 (1.0-4.8); Lymph % (Auto) 56.8 % (9.0-44.0); Mean Corpuscular HGB Conc 31.7 % (32.0-36.0); Mean Corpuscular Hemoglobin 30.5 pg (27.0-34.0); Mean Corpuscular Volume 96.1 fL (80.0-100.0); Mean Platelet Volume 7.6 fL (7.0-11.0); Mono # (Auto) 1.1 th/mm3 (0.0-0.9); Mono % (Auto) 5.3 % (0.0-8.0); Neut # (Auto) 7.3 th/mm3 (1.8-7.7); Neut % (Auto) 36.6 % (16.0-70.0); Platelet Count 320 th/mm3 (150-450); Red Blood Count 3.85 mil/mm3 (4.00-5.30); Red Cell Distribution Width 16.3 % (11.6-17.2)
[2018-07-18 17:43] LABS: Potassium 3.9 meq/L (3.5-5.1)
[2018-07-18 17:48] LABS: Activated Partial Thrombo Time 29.6 sec (24.3-30.1); Albumin 2.3 g/dL (3.4-5.0); Calcium 7.2 mg/dL (8.5-10.1); Carbon Dioxide 20.8 meq/L (21.0-32.0); INR 1.1 Ratio; Prothrombin Time 10.7 sec (9.8-11.6)
[2018-07-18] MEDS ORDERED: Bisacodyl 10 MG Supp RECTAL PRN (17:52)
[2018-07-18] MEDS ORDERED: Acetaminophen 325 MG Tablet PO PRN (17:52)
[2018-07-18 17:57] LABS: Total Protein 5.8 g/dL (6.4-8.2); Troponin I 0.08 ng/mL (0.02-0.05)
[2018-07-18] MEDS ORDERED: Calcium Gluconate Inj 2 GM in Dextrose 5% in Water Inj 100 ML IV.SIG ONE ×2 (17:59)
[2018-07-18 18:06] LABS: Lymphocytes 58 % (9-44); Monocytes 10 % (0-8); Platelet Estimate Normal (Normal); Platelet Morphology Normal (Normal); RBC Morphology Normal (Normal); Tallied Nucleated RBC 1 (0-0)
[2018-07-18] MEDS: Sod Chloride 0.9% Inj 1,000 ML IV.CONT SCH (18:09)
[2018-07-18 18:18] LABS: Amphetamine Screen,Urine Neg (Neg); Barbiturate Screen,Urine Neg (Neg); Cannabinoid Screen,Urine Neg (Neg); Cocaine Screen,Urine Neg (Neg)
[2018-07-18 18:29] LABS: Bilirubin,Urine Negative (Negative); Clarity,Urine Slightly Cloudy (Clear); Color,Urine Yellow (Yellw/Straw); Glucose,Urine (UA) Negative (Negative); Leukocyte Esterase,Urine Small (Negative); Nitrite,Urine Positive (Negative); PH,Urine 5.5 (5.0-8.5); Specific Gravity,Urine 1.025 (1.002-1.035); Urobilinogen,Urine 0.2 mg/dL (Less than 2)
[2018-07-18 18:37] LABS: Opiate Screen,Urine Neg (Neg)
--- NOTE | 2018-07-18 18:47 | CT ---
EXAM DATE: 07/18/2018 6:43 PM EDT AGE/SEX: 73 years / Female INDICATIONS: Post cardiac arrest. Unresponsive. CLINICAL DATA: This is the patient's initial encounter. Patient reports that signs and symptoms have been present for 1 day and indicates a pain score of Nonresponsive. MEDICAL/SURGICAL HISTORY: Hypertension. Gastroesophageal reflux disease. None. RADIATION DOSE: 58.75 CTDI (mGy) ; Patient motion COMPARISON: No prior exams available for comparison. TECHNIQUE: CT of the head without contrast. Using automated exposure control and adjustment of the mA and/or kV according to patient size, radiation dose was kept as low as reasonably achievable to ob tain optimal diagnostic quality images. DICOM format image data is available electronically for revi ew and comparison. FINDINGS: Cerebrum: The ventricles are normal for age. No evidence of midline shift, mass lesion, hemorrhage or acute infarction. No extraaxial fluid collections are seen. Posterior Fossa: The cerebellum and brainstem are intact. The 4th ventricle is midline. The cerebe llopontine angle is unremarkable. Extracranial: The visualized portion of the orbits is intact. Skull: The calvaria is intact. No evidence of skull fracture. CONCLUSION: 1. Negative CT Head non contrast. . Electronically signed by: Mat Rodriguez MD 07/18/2018 6:46 PM EDT
[2018-07-18 18:53] LABS: WBC,Urine 21-50 /hpf (0-5)
[2018-07-18 18:54] LABS: Bacteria,Urine Many /hpf; Squamous Epithelial Cell,Urine 0-5 /hpf (0-5)
[2018-07-18 18:54] LABS: CKMB Percent 1.6 % (0.0-4.0); Creatine Kinase MB 3.3 ng/mL (0.5-3.6)
--- NOTE | 2018-07-18 18:56 | CT ---
EXAM DATE: 07/18/2018 6:48 PM EDT AGE/SEX: 73 years / Female INDICATIONS: Post cardiac arrest. CLINICAL DATA: This is the patient's initial encounter. Patient reports that signs and symptoms have been present for 1 day and indicates a pain score of Nonresponsive. MEDICAL/SURGICAL HISTORY: Hypertension. Gastroesophageal reflux disease. None. RADIATION DOSE: 20.01 CTD (mGy) COMPARISON: No prior exams available for comparison. TECHNIQUE: Volumetric scanning was performed using a multi-row detector CT scanner during bolus infu sarah of 50 ml Visipaque 320 (iodixanol) nonionic water-soluble contrast as a single exam dose. The d herve was post processed with a variety of visualization algorithms including full volume maximum inten sity projection and sliding thin slab reformation. Using automated exposure control and adjustment of the mA and/or kV according to patient size, radiation dose was kept as low as reasonably achievable to obtain optimal diagnostic quality images. DICOM format image data is available electronically for review and comparison. FINDINGS: Endotracheal tube is in good position Pulmonary Arteries: No filling defects are seen in the pulmonary arteries out to the subsegmental ve ssels. The left and right pulmonary arteries are normal in diameter. Lung: No infiltrates seen. Effusion: None. Mediastinum: No evidence of mediastinal or hilar adenopathy. Other: The axilla is unremarkable. There are multiple right-sided rib fractures which could be acute . The right fifth and sixth ribs appear to be fractured I suspect are acute. Wedging lower thoracic s pine I believe is chronic. CONCLUSION: 1. No evidence of pulmonary embolism. No filling defects are identified. 2. 2 fractures on the right are probably acute. There are number of other deformed ribs anteriorly o n the left which are more likely chronic. Electronically signed by: Mat Rodriguez MD 07/18/2018 6:54 PM EDT
[2018-07-18] MEDS: Chlorhexidine 0.12% Oral Kit 15 ML UDC OROPHARYNG SCH (20:00)
[2018-07-18] MEDS ORDERED: Famotidine PF Inj 20 MG/2 ML Vial IV.PUSH SCH (21:00)
[2018-07-18] MEDS: Senna/Docusate Sodium 8.6/50 MG Tablet PO SCH (21:23)
[2018-07-18] MEDS: Famotidine PF Inj 20 MG/2 ML Vial IV.PUSH SCH (21:23)
--- NOTE | 2018-07-18 21:58 | P.HPCC ---
History of Present Illness Service: Critical Care Medicine Primary Care Physician: UNKNOWN Chief Complaint: Cardiac arrest History of Present Illness: 73-year-old female with past medical history of hypertension, GERD, hypothyroidism, alcohol dependence, chronic pain on methadone, depression who presented to [facility] following asystolic cardiac arrest. She had last been seen normal about 2-1/2 hours prior. Her boyfriend came home and found her unresponsive. When [facility] arrived she was in asystole. She had a large amount of black emesis at the scene. CPR was initiated and she was given epinephrine x2 and bicarb and had ROSC. Combitube was placed. Had a second cardiac arrest. She was intubated in the emergency department. She was initially hypotensive and was started on Levophed. CT brain was negative for acute abnormality. CT chest demonstrates multiple right-sided rib fractures. There is no pulmonary embolism. EKG has no ST elevation. Troponin 0 0.11. Her daughter states she was having a cough and spitting up some phlegm yesterday. She drinks a bottle of vodka daily. She has been depressed since her 3 years ago. Her daughter is her only child. She has no advanced directive. - Diagnosis (1) Respiratory failure with hypoxia (2) HTN (hypertension) (3) Shock (4) Hepatic encephalopathy (5) Coma (6) Anoxic encephalopathy (7) Seizure (8) UTI (urinary tract infection) (9) GERD (gastroesophageal reflux disease) (10) Coffee ground vomiting (11) Diarrhea (12) Alcohol dependence (13) Ischemic hepatitis (14) Cirrhosis (15) WM (acute kidney injury) (16) Cardiac arrest (17) Hyperglycemia (18) Chronic pain (19) Multiple rib fractures Inpatient Certification: I certify that the inpatient services were ordered in accordance with Medicare regulations governing the order. This includes certification that hospital inpatient services are reasonable and necessary and in the case of services not specified as inpatient-only under 42 CFR 419.22(n), that they are appropriately provided as inpatient services in accordance to with the 2-midnight benchmark under 43 CFR 412.3(e) Estimated Total Length of Stay (Days): 7 Plans for Post Hospital Care: Not yet determined Review of Systems unobtainable due to endotracheal tube PMFSH - History History Provided By: [employer] Cameraman / EMT - Medical History Medical History: Medical History (Last Reviewed 07/18/18 @ 18:59 by Tianna Abdalla RN) GERD (gastroesophageal reflux disease) Hypertension Hypothyroid - Surgical History Surgical History: Surgical History (Last Updated 07/19/18 @ 10:16 by Valerie Ledesma MD) Hx of appendectomy Hx of rhinoplasty - Family History Family History: Family History (Last Updated 07/19/18 @ 10:18 by Valerie Ledesma MD) Other No significant family history - Tobacco History Second Hand Smoke Exposure: No Smoking Status: Unknown if ever smoked Tobacco Type: Cigarettes - Alcohol History How Often Do You Have a Drink Containing Alcohol: 4 or more times a week - Substance Use History Substance History: Unable to Obtain - Travel History Recent Travel in the [place] Within the Last 8 Weeks: No Recent Travel Out of the Country Within the Last 8 Weeks: No - Immunization History Tetanus Immunization: Unsure Medications and Allergies Active Medications: Active Medications Acetaminophen (Tylenol) 650 mg PO Q6H PRN PRN Reason: PAIN 1-10 AND/OR FEVER >101F Al Hydroxide/Mg Hydroxide (Milk Of Levi Gonzales) 30 ml PO Q12H PRN PRN Reason: Mild Constipation Albuterol (Duoneb Neb (Prn)) 1 ampul NEB Q2HR NEB PRN PRN Reason: WHEEZING Bisacodyl (Dulcolax Supp) 10 mg RECTAL DAILY PRN PRN Reason: SEVERE CONSITIPATION Chlorhexidine Gluconate (Peridex 0.12% Oral Kit) 15 ml OROPHARYNG BID@0800, 2000 [facility] Last Admin: 07/18/18 20:00 Dose: 15 ml Chlorhexidine Gluconate (Chlorhexidine 2% Cloth) 3 pack TOPICAL DAILY@0400 PRN PRN Reason: Extra cloth needed Stop: 07/24/18 03:59 Chlorhexidine Gluconate (Chlorhexidine 2% Cloth) 3 pack TOPICAL DAILY@0400 SUNITA Stop: 07/24/18 03:59 Famotidine (Pepcid Pf Inj) 20 mg IV.PUSH Q12HR [facility] Last Admin: 07/18/18 21:23 Dose: 20 mg Norepinephrine Bitartrate (Levophed-Dextrose 4 Mg/250 Ml Drip) 4 mg in 250 mls @ 7.5 mls/hr IV.SIG TITRATE PRN; Protocol PRN Reason: Per Protocol Last Titration: 07/18/18 19:05 Dose: 2 mcg/min, 7.5 mls/hr Sodium Chloride (Ns Inj) 1,000 mls @ 84 mls/hr IV.CONT .[id number] [facility] Last Admin: 07/18/18 18:09 Dose: 84 mls/hr Lactulose (Lactulose Liq) 30 ml PO DAILY PRN PRN Reason: SEVERE CONSITIPATION Miscellaneous Medication () 1 each OROPHARYNG 0000,0400,1200,1600 [facility] Senna/Docusate Sodium (Leighann-Colace) 1 tab PO BID [facility] Last Admin: 07/18/18 21:23 Dose: Not Given Sennosides (Senokot) 17.2 mg PO Q12H PRN PRN Reason: Moderate Constipation Sodium Chloride (Ns Flush) 2 ml IV.FLUSH UNSCH PRN PRN Reason: FLUSH AFTER USING IV ACCESS Sodium Chloride (Ns Flush) 2 ml IV.FLUSH BID [facility] Last Admin: 07/18/18 21:23 Dose: 2 ml Sodium Chloride (Ns Flush) 2 ml IV.FLUSH PRN PRN PRN Reason: FLUSH AFTER USING IV ACCESS Terbutaline Sulfate (Brethine Inj) 1 mg SQ UNSCH PRN PRN Reason: For Extravasation Allergies Allergy/AdvReac Type Severity Reaction Status Date / Time No Known Allergies AdvReac Unknown Uncoded 12/03/17 17:06 Results - Labs CBC & Chem 7: 07/19/18 03:28 07/19/18 03:28 Labs: Short CBC 07/18/18 Range/Units 17:21 WBC 20.0 H (4.0-11.0) th/mm3 Hgb 11.7 (11.6-15.3) gm/dL Hct 37.0 (35.0-46.0) % Plt Count 320 (150-450) th/mm3 BMP 07/18/18 17:21 Sodium 145 Potassium 3.9 Chloride 105 Carbon Dioxide 20.8 L BUN 30 H Creatinine 1.70 H Calcium 7.2 L* Cardiac Enzymes 07/18/18 07/18/18 07/18/18 Range/Units 17:00 17:20 17:21 Total Creatine Kinase 204 H (26-192) U/L CK-MB (CK-2) 3.3 (0.5-3.6) ng/mL Troponin I 0.11 H 0.08 H (0.02-0.05) ng/mL Liver Function 07/18/18 Range/Units 17:21 Total Bilirubin 0.2 (0.2-1.0) mg/dL AST 634 H (15-37) U/L ALT 392 H (10-53) U/L Alkaline Phosphatase 89 (45-117) U/L Albumin 2.3 L (3.4-5.0) g/dL Urine 07/18/18 Range/Units 17:53 Urine Color Yellow (Yellw/Straw) Urine Clarity Slightly cloudy (Clear) Urine pH 5.5 (5.0-8.5) Ur Specific Jordan 1.025 (1.002-1.035) Urine Protein Negative (Neg-Trace) mg/dL Urine Glucose (UA) Negative (Negative) mg/dL - Imaging Impressions Chest CTA 07/18/18 17:48 CONCLUSION: 1. No evidence of pulmonary embolism. No filling defects are identified. 2. 2 fractures on the right are probably acute. There are number of other deformed ribs anteriorly on the left which are more likely chronic. Head CT 07/18/18 17:48 CONCLUSION: 1. Negative CT Head non contrast. . Exam Vital signs: Vital Signs 07/18/18 17:14 07/18/18 17:15 07/18/18 17:20 Temperature Pulse Rate 120 H 108 H Respiratory Rate 18 Blood Pressure 172/82 H 140/60 Pulse Oximetry 99 99 07/18/18 17:22 07/18/18 17:37 07/18/18 17:40 Temperature Pulse Rate Respiratory Rate Blood Pressure 104/47 L Pulse Oximetry 100 100 07/18/18 17:43 07/18/18 17:48 07/18/18 17:55 Temperature Pulse Rate 110 H 106 H 106 H Respiratory Rate 18 18 Blood Pressure 121/64 147/70 H 174/87 H Pulse Oximetry 100 07/18/18 18:00 07/18/18 19:04 07/18/18 20:00 Temperature 94.6 F L Pulse Rate 102 H 82 Respiratory Rate 19 Blood Pressure 166/73 H 153/79 H Pulse Oximetry 100 100 Intake & Output 07/18/18 07/18/18 07/19/18 06:59 18:59 06:59 Intake Total 500 / 500 Balance 500 / 500 Weight 77 kg Intake: IV 500 / 500 NS Inj 500 ML @ Wide Open IV. 500 / 500 SIG ONCE ONE Rx#:[id number] Other: Weight On Admission 77 kg Narrative: GENERAL: Elderly disheveled appearing female who is orotracheally intubated. SKIN: Warm and dry. HEAD: Atraumatic. Normocephalic. EYES: Pupils about 2 mm. Left pupil is slightly irregular. Nonreactive. No scleral icterus. No injection or drainage. ENT: No nasal bleeding or discharge. Mucous membranes pink and moist. NECK: Trachea midline. No JVD. CARDIOVASCULAR: Regular rate and rhythm. No murmurs rubs or gallops. RESPIRATORY: Orotracheally intubated. Rhonchorous breath sounds bilaterally. No wheezes rales or rhonchi. GASTROINTESTINAL: Abdomen soft, non-tender, nondistended. Bowel sounds present. MUSCULOSKELETAL: Extremities without clubbing, cyanosis, or edema. No obvious deformities. NEUROLOGICAL: No eye opening. No facial grimace. There is twitching of periorbital muscles. Pupils as per above. No corneal reflex. No cough. No gag. She is overbreathing the vent. No motor response to deep noxious central or peripheral stimuli. Caprini VTE Risk Assessment Caprini VTE Risk Assessment: Moderate/High Risk (score >= 2) VTE Pharmacological Exception Reason: Active bleeding Caprini Risk Assessment Model: Point Value = 1 Point Value = 2 Point Value = 3 Point Value = 5 Age 41-60 Minor surgery BMI > 25 kg/m2 Swollen legs Varicose veins or History of unexplained or recurrent spontaneous Oral contraceptives or hormone replacement Sepsis (< 1 month) Serious lung disease, including pneumonia (< 1 month) Abnormal pulmonary function Acute myocardial infarction Congestive heart failure (< 1 month) History of inflammatory bowel disease Medical patient at bed rest Age 61-74 Arthroscopic surgery Major open surgery (> 45 min) Laparoscopic surgery (> 45 min) Malignancy Confined to bed (> 72 hours) Immobilizing plaster cast Central venous access Age >= 75 History of VTE Family history of VTE Factor V Leiden Prothrombin [id number] Lupus anticoagulant Anticardiolipin antibodies Elevated serum homocysteine Heparin-induced thrombocytopenia Other congenital or acquired thrombophilia Stroke (< 1 month) Elective arthroplasty Hip, pelvis, or leg fracture Acute spinal cord injury (< 1 month) Prophylaxis Regimen: Total Risk Factor Score Risk Level Prophylaxis Regimen 0-1 Low Early ambulation 2 Moderate Order ONE of the following: *Sequential Compression Device (SCD) *Heparin 5000 units SQ BID 3-4 Higher Order ONE of the following medications: *Heparin 5000 units SQ TID *Enoxaparin/Lovenox 40 mg SQ daily (WT < 150 kg, CrCl > 30 mL/min) *Enoxaparin/Lovenox 30 mg SQ daily (WT < 150 kg, CrCl > 10-29 mL/min) *Enoxaparin/Lovenox 30 mg SQ BID (WT < 150 kg, CrCl > 30 mL/min) AND/OR *Sequential Compression Device (SCD) 5 or more Highest Order ONE of the following medications: *Heparin 5000 units SQ TID (Preferred with Epidurals) *Enoxaparin/Lovenox 40 mg SQ daily (WT < 150 kg, CrCl > 30 mL/min) *Enoxaparin/Lovenox 30 mg SQ daily (WT < 150 kg, CrCl > 10-29 mL/min) *Enoxaparin/Lovenox 30 mg SQ BID (WT < 150 kg, CrCl > 30 mL/min) AND *Sequential Compression Device (SCD) Assessment and Plan - Problem List (1) Respiratory failure with hypoxia Code(s): J96.91 - Respiratory failure, unspecified with hypoxia Status: Acute (2) HTN (hypertension) Code(s): I10 - Essential (primary) hypertension Status: Chronic (3) Shock Code(s): R57.9 - Shock, unspecified Status: Resolved (4) Hepatic encephalopathy Code(s): K72.90 - Hepatic failure, unspecified without coma Status: Acute (5) Coma Code(s): R40.20 - Unspecified coma Status: Acute (6) Anoxic encephalopathy Code(s): G93.1 - Anoxic brain damage, not elsewhere classified Status: Acute (7) Seizure Code(s): R56.9 - Unspecified convulsions Status: Acute (8) UTI (urinary tract infection) Code(s): N39.0 - Urinary tract infection, site not specified Status: Acute (9) GERD (gastroesophageal reflux disease) Code(s): K21.9 - Gastro-esophageal reflux disease without esophagitis Status: Chronic (10) Coffee ground vomiting Code(s): K92.0 - Hematemesis Status: Acute (11) Diarrhea Code(s): R19.7 - Diarrhea, unspecified Status: Acute (12) Alcohol dependence Code(s): F10.20 - Alcohol dependence, uncomplicated Status: Chronic (13) Ischemic hepatitis Code(s): K75.9 - Inflammatory liver disease, unspecified Status: Acute (14) Cirrhosis Code(s): K74.60 - Unspecified cirrhosis of liver Status: Chronic (15) WM (acute kidney injury) Code(s): N17.9 - Acute kidney failure, unspecified Status: Acute (16) Cardiac arrest Code(s): I46.9 - Cardiac arrest, cause unspecified Status: Acute (17) Hyperglycemia Code(s): R73.9 - Hyperglycemia, unspecified Status: Acute (18) Chronic pain Code(s): G89.29 - Other chronic pain Status: Chronic (19) Multiple rib fractures Code(s): S22.49XA - Multiple fractures of ribs, unspecified side, initial encounter for closed fracture Status: Acute - Assessment and Plan Plan: NEURO: Coma Anoxic encephalopathy Seizure Fosphenytoin load and 100 mg PE q8 hours. Follow-up Dilantin level Propofol for sedation. Add versed if needed for sedation and control of clinical seizures. Obtain EEG CT brain no acute abnormality. Hyperammonemia Rifaximin 550 mg p.o. twice daily Alcohol dependence Acute alcohol intoxication upon presentation Thiamine/multivitamin/folic acid supplementation. Monitor for signs and symptoms of alcohol withdrawal Not a candidate for induced therapeutic hypothermia due to active bleeding and she is already hypothermic with temp 34. RESP: Acute hypoxic respiratory failure Multiple rib fractures PRVC. Ventilator bundle. Neuro status prevents extubation CV: Asystolic cardiac arrest Hypotension postarrest (resolved) Hypertension Elevated troponin - likely demand ischemia following respiratory arrest Levophed weaned off Labetalol as needed as needed for systolic blood pressure greater than 160 Serial EKG and troponin Not a candidate for aspirin or heparin due to active bleeding. GI: Coffee-ground output from OG tube Vomiting Diarrhea present on admission Cirrhosis Ischemic hepatitis versus acute alcoholic hepatitis NPO. OGT to LIWS Protonix 80 mg IV and Protonix drip. Serial hemoglobin. Consult GI if evidence of significant active bleeding. FEN/RENAL: Acute kidney injury NS 84 mL/h. Johnston in place. Monitor intake and output. Monitor electrolytes and replace as indicated. ID: UTI present on admission Leukocytosis Follow-up blood urine and sputum culture. Zosyn 2.25 g IV every 6 hours HEME: Monitor serial hemoglobin. Transfuse as needed for hemoglobin less than 7. Coags and platelet counts are within normal limits ENDO: Acute hyperglycemia Monitor bedside glucose every 4 hours and administer low-dose insulin sliding scale as indicated. PROPH: SCDs for DVT prophylaxis. Pharmacologic DVT prophylaxis contraindicated due to GI bleeding. Protonix as per above ACCESS: Right subclavian central venous line placed 07/19 #1 Full code Critical care time 60 minutes exclusive of separately billable procedure H&P: Quality - VTE Deep Vein Thrombosis/Pulmonary Embolism Present on Admission: No (12) Alcohol dependence Qualifiers: Substance use status: with intoxication
[2018-07-18] MEDS ORDERED: Pantoprazole Inj 80 MG in Sodium Chlor 0.9% Inj 35 ML IV.SIG ONE (22:19)
[2018-07-18] MEDS ORDERED: FOSPHENYTOIN IV.SIG ONE (23:00)
[2018-07-18] MEDS ORDERED: SODIUM CHLOR IV.SIG ONE (23:00)
[2018-07-18 23:14] LABS: ABG Base Excess -7.8 mmol/L (-2-2); ABG PCO2 31 mmHg (38-42); ABG PO2 587 mmHG (61-120)
[2018-07-18] MEDS ORDERED: Midazolam 50 MG/50 ML Inj 50 MG/50 ML BAG IV.CONT PRN (23:43)
[2018-07-19] MEDS: Propofol 1000 mg/100 ml Inj 1,000 MG/100 ML BOTTLE IV.CONT PRN ×3 (00:32→10:00)
[2018-07-19] MEDS: Pantoprazole Inj 80 MG in Sodium Chlor 0.9% Inj 100 ML IV.CONT SCH ×3 (00:53→22:38)
[2018-07-19] MEDS: Labetalol HCl Inj 100 MG/20 ML Vial IV.PUSH PRN ×3 (01:21→20:36)
[2018-07-19] MEDS: Piperacil/Tazo 2.25 GM Premix 50 ML IV.SIG SCH ×4 (01:23→18:10)
[2018-07-19] MEDS: Oral Hygiene Kit OROPHARYNG SCH ×4 (01:24→18:09)
--- NOTE | 2018-07-19 02:35 | P.PCN ---
Date of procedure: 07/19/18 Procedure: DATE: 07/19/18 CENTRAL LINE PLACEMENT: Right subclavian vein. Ultrasound-guided INDICATION: Central venous access CONSENT Informed consent for procedure was obtained from patient's daughter after discussion of risk, benefits, alternatives. DESCRIPTION OF THE PROCEDURE The patient was placed in supine position, Trendelenburg. The skin was cleansed with Chloraprep x3. Additional barrier precautions included large sterile drape, sterile gloves, sterile gown, face mask, and hat. 1 % lidocaine was used for local anesthesia. On initial attempt there was a arterial stick, needle removed and pressure held. Transitioned to ultrasound guided approach. There was no hematoma noted. Under direct ultrasound guidance and on single attempt, the vein was accessed with an introducer needle. The guide wire was advanced and confirmed intravenous by ultrasound. The tract was dilated. Using Seldinger technique a 7 English 20 cm antimicrobial coated triple-lumen catheter was advanced to a depth of 16 centimeters. The guide wire was removed. All ports had good return of dark venous blood and flushed easily with saline. The central line was secured with Stat-lock. A sterile dressing with antibiotic disc was applied. ESTIMATED BLOOD LOSS: Minimal COMPLICATIONS: No apparent complications. STAT chest x-ray is pending.
--- NOTE | 2018-07-19 03:51 | XR ---
EXAM DATE: 07/19/2018 3:46 AM EDT AGE/SEX: 73 years / Female INDICATIONS: Right subclavian central line placement. CLINICAL DATA: This is the patient's subsequent encounter. Patient reports that signs and symptoms h ave been present for 2 days and indicates a pain score of Nonresponsive. MEDICAL/SURGICAL HISTORY: Hypertension. Gastroesophageal reflux disease. None. [place] [facility] [place]. . FINDINGS: Patient has a right subclavian central venous catheter which extends cephalad, presumably within the internal jugular vein. The tip is not included on the study. Patient is intubated. Endotracheal tube tip is approximately 2.5 cm above the kel. There is a naso gastric tube coursing into the stomach. Mild patchy infiltrate of the lung bases, left more so than right. CONCLUSION: 1. Right subclavian central venous catheter extends cephalad. 2. Endotracheal tube and nasogastric tube are appropriately positioned. 3. Mild bibasilar patchy infiltrate. Electronically signed by: Carl Bennett MD 07/19/2018 3:50 AM EDT
[2018-07-19] MEDS ORDERED: Chlorhexidine Gluconate 2% 1 Pack (2 Cloths) TOPICAL PRN (04:00)
[2018-07-19] MEDS: Chlorhexidine Gluconate 2% 1 Pack (2 Cloths) TOPICAL SCH (04:35)
[2018-07-19 05:09] LABS: Baso % (Auto) 0.1 % (0.0-2.0); Hemoglobin 13.3 gm/dL (11.6-15.3); Lymph # (Auto) 0.5 th/mm3 (1.0-4.8); Lymph % (Auto) 5.3 % (9.0-44.0); Mean Corpuscular HGB Conc 34.1 % (32.0-36.0); Mean Corpuscular Hemoglobin 31.8 pg (27.0-34.0); Mean Corpuscular Volume 93.2 fL (80.0-100.0); Mean Platelet Volume 7.8 fL (7.0-11.0); Mono # (Auto) 0.5 th/mm3 (0.0-0.9); Mono % (Auto) 5.7 % (0.0-8.0); Neut # (Auto) 8.6 th/mm3 (1.8-7.7); Neut % (Auto) 88.9 % (16.0-70.0); Platelet Count 275 th/mm3 (150-450); Red Blood Count 4.18 mil/mm3 (4.00-5.30); Red Cell Distribution Width 17.2 % (11.6-17.2); White Blood Count 9.6 th/mm3 (4.0-11.0)
[2018-07-19] MEDS: Fosphenytoin Inj 100 MGPE in Sodium Chlor 0.9% Inj 50 ML IV.SIG SCH ×3 (05:21→21:04)
[2018-07-19 05:31] LABS: Albumin 2.8 g/dL (3.4-5.0); Anion Gap 14 meq/L (5-15); Blood Urea Nitrogen 36 mg/dL (7-18); Calcium 7.6 mg/dL (8.5-10.1); Chloride 108 meq/L (98-107); Glucose,Random 214 mg/dL (74-106); Magnesium 1.4 mg/dL (1.5-2.5); Potassium 4.4 meq/L (3.5-5.1); Sodium 146 meq/L (136-145)
--- NOTE | 2018-07-19 05:37 | XR ---
EXAM DATE: 07/19/2018 5:19 AM EDT AGE/SEX: 73 years / Female INDICATIONS: Slight withdraw of the right subclavian central line. CLINICAL DATA: This is the patient's subsequent encounter. Patient reports that signs and symptoms h ave been present for 2 days and indicates a pain score of Nonresponsive. MEDICAL/SURGICAL HISTORY: Hypertension. Gastroesophageal reflux disease. None. COMPARISON: [facility], CHEST 1V SINGLE AP, 07/19/2018. . FINDINGS: Mild bibasilar airspace opacities persist without significant change. No pleural effusion. No pneumot horax. Right subclavian central venous catheter has been pulled back slightly. Its tip is in the right inter nal jugular vein approximately 1 cm above the first rib. Endotracheal tube tip is 3 cm above the pedro luis na and nasogastric tube courses in the stomach. CONCLUSION: 1. Right subclavian central venous catheter has been pulled back. It continues to extend cephalad wi thin the right internal jugular vein, tip slightly above the thoracic inlet. 2. Endotracheal tube and nasogastric tube appropriately positioned and unchanged. 3. Mild bibasilar airspace opacities not significantly changed. Electronically signed by: Carl Bennett MD 07/19/2018 5:35 AM EDT
[2018-07-19 05:39] LABS: Alanine Aminotransferase 538 U/L (10-53); Alkaline Phosphatase 107 U/L (45-117); Aspartate Aminotransferase 1169 U/L (15-37); Phenytoin (Dilantin) 10.8 mcg/mL (10.0-20.0); Phosphorus 4.9 mg/dL (2.5-4.9); Total Protein 6.7 g/dL (6.4-8.2)
[2018-07-19] MEDS ORDERED: Dextrose 50% in Water 50 ML Vial IV.PUSH PRN (08:47)
[2018-07-19] MEDS: Sod Chloride 0.9% Inj 1,000 ML IV.CONT SCH (10:38)
[2018-07-19] MEDS: Thiamine Inj 100 MG in Sodium Chlor 0.9% Inj 100 ML IV.SIG SCH (10:39)
[2018-07-19] MEDS: Chlorhexidine 0.12% Oral Kit 15 ML UDC OROPHARYNG SCH ×2 (10:39→20:37)
[2018-07-19] MEDS: Senna/Docusate Sodium 8.6/50 MG Tablet PO SCH ×2 (10:40→20:38)
[2018-07-19] MEDS: Famotidine PF Inj 20 MG/2 ML Vial IV.PUSH SCH ×2 (10:40→20:37)
[2018-07-19] MEDS: rifAXIMin 550 MG Tablet NG/OG SCH ×2 (10:40→20:38)
[2018-07-19] MEDS: Folic Acid 1 MG Tablet PO SCH (11:37)
--- NOTE | 2018-07-19 12:11 | P.PNCC ---
Subjective Subjective Remarks/Hospital Course: 73-year-old female with past medical history of hypertension, GERD, hypothyroidism, alcohol dependence, chronic pain on methadone, depression who presented to [facility] following asystolic cardiac arrest. She had last been seen normal about 2-1/2 hours prior. Her boyfriend came home and found her unresponsive. When [facility] arrived she was in asystole. She had a large amount of black emesis at the scene. CPR was initiated and she was given epinephrine x2 and bicarb and had ROSC. Combitube was placed. Had a second cardiac arrest. She was intubated in the emergency department. She was initially hypotensive and was started on Levophed. CT brain was negative for acute abnormality. CT chest demonstrates multiple right-sided rib fractures. There is no pulmonary embolism. EKG has no ST elevation. Troponin 0 0.11. Her daughter states she was having a cough and spitting up some phlegm yesterday. She drinks a bottle of vodka daily. She has been depressed since her 3 years ago. Her daughter is her only child. She has no advanced directive. 07/19 Patient is sedated with Diprivan and intubated. Unresponsive. Objective Vital Signs / I&O: Vital Signs 07/18/18 17:14 07/18/18 17:15 07/18/18 17:20 Temperature Pulse Rate 120 H 108 H Respiratory Rate 18 Blood Pressure 172/82 H 140/60 Pulse Oximetry 99 99 07/18/18 17:22 07/18/18 17:37 07/18/18 17:40 Temperature Pulse Rate Respiratory Rate Blood Pressure 104/47 L Pulse Oximetry 100 100 07/18/18 17:43 07/18/18 17:48 07/18/18 17:55 Temperature Pulse Rate 110 H 106 H 106 H Respiratory Rate 18 18 Blood Pressure 121/64 147/70 H 174/87 H Pulse Oximetry 100 07/18/18 18:00 07/18/18 19:04 07/18/18 19:35 Temperature Pulse Rate 102 H Respiratory Rate 18 Blood Pressure 166/73 H Pulse Oximetry 100 97 07/18/18 20:00 07/18/18 21:00 07/18/18 22:00 Temperature 94.6 F L 94.8 F L Pulse Rate 82 72 79 Respiratory Rate 19 19 18 Blood Pressure 153/79 H 152/79 H 160/79 H Pulse Oximetry 100 100 100 07/18/18 23:00 07/18/18 23:45 07/19/18 00:00 Temperature 100.0 F H Pulse Rate 87 87 Respiratory Rate 18 18 18 Blood Pressure 189/89 H 205/101 H Pulse Oximetry 100 100 100 07/19/18 01:00 07/19/18 02:00 07/19/18 03:00 Temperature Pulse Rate 86 67 70 Respiratory Rate 16 16 16 Blood Pressure 202/110 H 155/81 H 164/90 H Pulse Oximetry 100 100 100 07/19/18 03:47 07/19/18 03:48 07/19/18 04:00 Temperature 97.9 F Pulse Rate 68 71 Respiratory Rate 16 16 16 Blood Pressure 142/83 H Pulse Oximetry 99 100 07/19/18 05:00 07/19/18 06:00 07/19/18 08:00 Temperature 97.7 F 97.6 F Pulse Rate 71 70 69 Respiratory Rate 16 18 16 Blood Pressure 142/83 H 142/81 H 142/78 H Pulse Oximetry 100 07/19/18 08:02 07/19/18 09:00 07/19/18 09:59 Temperature Pulse Rate 69 68 Respiratory Rate 16 16 Blood Pressure Pulse Oximetry 99 07/19/18 11:31 Temperature Pulse Rate Respiratory Rate 16 Blood Pressure Pulse Oximetry 98 Intake & Output 07/18/18 07/19/18 07/19/18 18:59 06:59 18:59 Intake Total 500 / 500 1443 / 1443 200 / 200 Output Total 1050 / 1050 Balance 500 / 500 393 / 393 200 / 200 Weight 77 kg Intake: IV 500 / 500 1443 / 1443 200 / 200 Protonix Inj 80 MG In NS Inj 100 / 100 100 ML @ 10 mls/hr IV.CONT Q10H [facility] Rx#:[id number] Diprivan 1000 mg/100 ml Inj 1, 100 / 100 100 / 100 000 mg In 100 ml @ 5 MCG/KG/MIN 2.31 mls/hr IV.CONT TITRATE PRN Rx#:[id number] NS Inj 1,000 ML @ 84 mls/hr IV. 1000 / 1000 CONT .[id number] [facility] Rx#: [id number] Calcium Gluconate Inj 2 GM In 120 / 120 D5W Inj 100 ML @ 120 mls/hr IV. SIG ONCE ONE Rx#:[id number] Cerebyx Inj 100 MGPE In NS Inj 50 / 50 50 ML @ 208 mls/hr IV.SIG Q8HR [facility] Rx#:[id number] Cerebyx Inj 1,160 MGPE In NS 123 / 123 Inj 100 ML @ 246.4 mls/hr IV. SIG ONCE ONE Rx#:[id number] Zosyn 2.25 GM Premix 50 ML @ 50 / 50 100 mls/hr IV.SIG Q6H [facility] Rx#: [id number] NS Inj 500 ML @ Wide Open IV. 500 / 500 SIG ONCE ONE Rx#:[id number] Output: Urine Amount (Catheter) 750 / 750 Indwelling Urethral Catheter 750 / 750 Gastric Drainage 300 / 300 Orogastric Tube 300 / 300 Other: Weight On Admission 77 kg Result Diagrams: 07/19/18 03:28 07/19/18 03:28 Other Results: Laboratory Results - last 12 hr 07/18/18 07/19/18 07/19/18 21:23 00:18 00:18 WBC RBC Hgb 13.8 D Hct MCV MCH MCHC RDW Plt Count MPV Neut % (Auto) Lymph % (Auto) [place] % (Auto) Eos % (Auto) Baso % (Auto) Neut # (Auto) Lymph # (Auto) [place] # (Auto) Eos # (Auto) Baso # (Auto) WBC Differential Differential Comment Sodium Potassium Chloride Carbon Dioxide Anion Gap BUN Creatinine Random Glucose Calcium Phosphorus Magnesium Total Bilirubin AST ALT Alkaline Phosphatase Troponin I 0.64 H* D Total Protein Albumin Nasal Screen MRSA (PCR) Not detected Phenytoin 07/19/18 07/19/18 03:28 03:28 WBC 9.6 D RBC 4.18 Hgb 13.3 Hct 39.0 MCV 93.2 MCH 31.8 MCHC 34.1 RDW 17.2 Plt Count 275 MPV 7.8 Neut % (Auto) 88.9 H Lymph % (Auto) 5.3 L [place] % (Auto) 5.7 Eos % (Auto) 0.0 Baso % (Auto) 0.1 Neut # (Auto) 8.6 H Lymph # (Auto) 0.5 L [place] # (Auto) 0.5 Eos # (Auto) 0.0 Baso # (Auto) 0.0 WBC Differential . Differential Comment Auto diff final Sodium 146 H Potassium 4.4 Chloride 108 H Carbon Dioxide 24.0 Anion Gap 14 BUN 36 H Creatinine 1.82 H Random Glucose 214 H Calcium 7.6 L Phosphorus 4.9 Magnesium 1.4 L Total Bilirubin 0.4 AST 1169 H ALT 538 H Alkaline Phosphatase 107 Troponin I Total Protein 6.7 D Albumin 2.8 L Nasal Screen MRSA (PCR) Phenytoin 10.8 Imaging: Chest CTA 07/18/18 17:48 CONCLUSION: 1. No evidence of pulmonary embolism. No filling defects are identified. 2. 2 fractures on the right are probably acute. There are number of other deformed ribs anteriorly on the left which are more likely chronic. Head CT 07/18/18 17:48 CONCLUSION: 1. Negative CT Head non contrast. . Chest X-Ray 07/19/18 02:27 CONCLUSION: 1. Right subclavian central venous catheter extends cephalad. 2. Endotracheal tube and nasogastric tube are appropriately positioned. 3. Mild bibasilar patchy infiltrate. Objective Remarks: GENERAL: Patient is 73 yo intubated and sedated SKIN: Warm and dry. HEAD: Normocephalic. EYES: No scleral icterus. No injection or drainage. NECK: Supple, trachea midline. No JVD or lymphadenopathy. CARDIOVASCULAR: Regular rate and rhythm without murmurs, gallops, or rubs. RESPIRATORY: Breath sounds equal bilaterally. No accessory muscle use. GASTROINTESTINAL: Abdomen soft, non-tender, nondistended. MUSCULOSKELETAL: No cyanosis, or edema. Neuro: Sedated Assessment and Plan - Problem List (1) Respiratory failure with hypoxia Code(s): J96.91 - Respiratory failure, unspecified with hypoxia Status: Acute (2) HTN (hypertension) Code(s): I10 - Essential (primary) hypertension Status: Chronic (3) Shock Code(s): R57.9 - Shock, unspecified Status: Resolved (4) Hepatic encephalopathy Code(s): K72.90 - Hepatic failure, unspecified without coma Status: Acute (5) Coma Code(s): R40.20 - Unspecified coma Status: Acute (6) Anoxic encephalopathy Code(s): G93.1 - Anoxic brain damage, not elsewhere classified Status: Acute (7) Seizure Code(s): R56.9 - Unspecified convulsions Status: Acute (8) UTI (urinary tract infection) Code(s): N39.0 - Urinary tract infection, site not specified Status: Acute (9) GERD (gastroesophageal reflux disease) Code(s): K21.9 - Gastro-esophageal reflux disease without esophagitis Status: Chronic (10) Coffee ground vomiting Code(s): K92.0 - Hematemesis Status: Acute (11) Diarrhea Code(s): R19.7 - Diarrhea, unspecified Status: Acute (12) Alcohol dependence Code(s): F10.20 - Alcohol dependence, uncomplicated Status: Chronic (13) Ischemic hepatitis Code(s): K75.9 - Inflammatory liver disease, unspecified Status: Acute (14) Cirrhosis Code(s): K74.60 - Unspecified cirrhosis of liver Status: Chronic (15) WM (acute kidney injury) Code(s): N17.9 - Acute kidney failure, unspecified Status: Acute (16) Cardiac arrest Code(s): I46.9 - Cardiac arrest, cause unspecified Status: Acute (17) Hyperglycemia Code(s): R73.9 - Hyperglycemia, unspecified Status: Acute (18) Chronic pain Code(s): G89.29 - Other chronic pain Status: Chronic (19) Multiple rib fractures Code(s): S22.49XA - Multiple fractures of ribs, unspecified side, initial encounter for closed fracture Status: Acute - Assessment and Plan Plan: NEURO: Coma Anoxic encephalopathy Seizure Fosphenytoin load and 100 mg PE q8 hours. Dilantin level 10.8 Propofol for sedation. Daily sedation vacation Follow up on EEG results CT brain no acute abnormality. Hyperammonemia Rifaximin 550 mg p.o. twice daily Alcohol dependence Acute alcohol intoxication upon presentation Thiamine/multivitamin/folic acid supplementation. Monitor for signs and symptoms of alcohol withdrawal Not a candidate for induced therapeutic hypothermia due to active bleeding and she is already hypothermic with temp 34. Neuro eval. RESP: Acute hypoxic respiratory failure Multiple rib fractures PRVC. Ventilator bundle. Neuro status prevents extubation Continue with vent support keep sats >92% Bronchodilators, ICU vent bundle. CXR: Mild bibasilar patchy infiltrate CV: Asystolic cardiac arrest Hypotension postarrest (resolved) Hypertension Elevated troponin - likely demand ischemia following respiratory arrest Monitor HR and BP keep MAP>65mmHg Labetalol as needed as needed for systolic blood pressure greater than 160 Monitor trop, for 2D echo to eval LV function Not a candidate for aspirin or heparin due to active bleeding. GI: Coffee-ground output from OG tube Vomiting Diarrhea present on admission Cirrhosis Elevated LFT's Ischemic hepatitis versus acute alcoholic hepatitis NPO. OGT to LIWS Protonix 80 mg IV and Protonix drip Consult GI if evidence of significant active bleeding. Check US liver FEN/RENAL: Acute kidney injury NS 84 mL/h. Johnston in place. Monitor intake and output. Monitor electrolytes and replace as indicated. ID: UTI present on admission Leukocytosis Follow-up blood urine and sputum culture. Zosyn 2.25 g IV every 6 hours HEME: Monitor serial hemoglobin. Transfuse as needed for hemoglobin less than 7. Coags and platelet counts are within normal limits ENDO: Acute hyperglycemia Monitor bedside glucose every 4 hours and administer low-dose insulin sliding scale as indicated. PROPH: SCDs for DVT prophylaxis. Pharmacologic DVT prophylaxis contraindicated due to GI bleeding. Protonix as per above ACCESS: Right subclavian central venous line placed 07/19 #1 Consult palliative care to asses with goals of care Full code Critical care time 35 minutes exclusive of separately billable procedure (12) Alcohol dependence Qualifiers: Substance use status: with intoxication
--- NOTE | 2018-07-19 12:59 | MB ---
cc: Jaz Sparrow MD DATE: 07/19/2018 REASON FOR CONSULTATION: Evaluation for anoxic encephalopathy. HISTORY OF PRESENT ILLNESS: This is a 73-year-old woman with a history of hypertension, hypothyroidism, reflux, alcohol dependence, chronic pain, on methadone, depression, comes into [facility] following asystole. She had last been seen normal about 2-1/2 hours prior to the family and/or EMS arrival. Apparently, her boyfriend came home and found her unresponsive. Found to be in asystole by [facility]. There was a large amount of black emesis at the scene. CPR was started, given epinephrine, bicarbonate. Had return of spontaneous circulation. Then, she had a second cardiac arrest, intubated in the emergency department, was hypotensive, started on Levophed. CT chest showed some right-sided rib fractures, but no PE, no ST elevation on EKG. Apparently, per her daughter, this is per chart, stated to staff that she had been coughing and spitting up some phlegm yesterday. She does have a history of alcohol abuse and drinks about a bottle of vodka daily. Depressed since her 3 years ago. She has 1 child. PAST MEDICAL HISTORY: As stated. PAST SURGICAL HISTORY: Appendectomy, rhinoplasty. PHYSICAL EXAMINATION: VITAL SIGNS: Temperature is 97.6, pulse is 69, respiratory rate 16, blood pressure 142/78 sitting, and 99% FiO2 of 40%. GENERAL: She is intubated, still on Diprivan. HEENT: Her pupils are pinpoint. There is no gaze deviation. No corneals. NEUROLOGIC: She is breathing at 16 and set at 16, no cough with suctioning. No OCRs. She does not blink to threat. Does not follow any commands, does not withdraw to pain. Flaccid tone. DTRs are trace to absent. Toes are neutral. LABORATORY DATA: Reviewed. Sodium 146, BUN 36, creatinine 1.82, glucose 216, calcium 7.6, magnesium 1.4, AST 1169, ALT 538, ammonia 41, albumin 2.8. Cardiac enzymes, today her troponin is 0.64. Urine small blood, positive nitrites, WBC 21-50. Coagulation panel negative. CBC: White count is 9.6, platelets 275,000. Toxicology screen was positive for benzodiazepines. Serum alcohol 157. Her phenytoin level is 10.8. CURRENT MEDICATIONS: She is still on Diprivan, is on Cerebyx 100 mg every 8 hours. DIAGNOSTIC DATA: EEG done, interpretation pending. Her CT was unremarkable at this time. IMPRESSION: A 73-year-old woman, status asystole concerning for anoxic encephalopathy. Recommendations are to hold her sedation, to reassess her neurologic status. Continue current treatment as doing by the billing adjudicator. If she continues in this state off sedation, most likely this is consistent with anoxia and prognosis will be poor for a meaningful recover. Further recommendations will be made as needed. Palliative care will assess the patient as well and discuss options with her daughter. MD RM Friedman/liberty , 12:09 PM , 12:17 PM
--- NOTE | 2018-07-19 13:42 | US ---
EXAM DATE: 07/19/2018 12:20 PM EDT AGE/SEX: 73 years / Female INDICATIONS: Elevated liver function and acute kidney injury. CLINICAL DATA: This is the patient's initial encounter. Patient reports that signs and symptoms have been present for 1 day and indicates a pain score of Nonresponsive. MEDICAL/SURGICAL HISTORY: Gastroesophageal reflux disease. Hypertension. Hypothyroidism. Appe ndectomy. Rhinoplasty. COMPARISON: No prior exams available for comparison. MEASUREMENTS: Liver:__ 14.6 cm. Common Bile Duct:___ 8mm. Right Kidney:___9.6 x 4.3 x 4.9 cm. Left Kidney:___8.8 x 3.4 x 5.2 cm. Spleen:___9.5 cm. FINDINGS: Liver: Normal echotexture without focal lesion or ductal dilatation. Portal Vein: Hepatopedal flow seen in portal vein. Common Duct: No intraluminal mass or stone visualized. Gallbladder: Demonstrates no wall thickening or pericholecystic fluid. No stones visualized. There is a small amount of apparent sludge. Pancreas: The visualized portions are unremarkable in appearance. The pancreatic duct is at the upp er limits of normal in size. Right Kidney: Small in size but otherwise unremarkable. There is no focal mass or hydronephrosis. Left Kidney: Small in size but otherwise unremarkable with no focal mass or hydronephrosis. Ascites: None Pleural Effusion: None Spleen: No focal lesion. Aorta: Non aneurysmal. IVC: Within normal limits Other: None. CONCLUSION: 1. Apparent small amount of sludge within the gallbladder with no definite stones. 2. The common bile duct appears mildly prominent at 8 mm. 3. The kidneys are small in size with no evidence of obstruction or focal lesion. Electronically signed by: Kyree Singh MD 07/19/2018 1:40 PM EDT
--- NOTE | 2018-07-19 14:36 | ECG ---
Date Performed: 07/18/2018 Time Performed: 17:23:23 PTAGE: 73 years EKG: SINUS TACHYCARDIA LOW QRS VOLTAGE IN EXTREMITY LEADS MODERATE INTRAVENTRICULAR CONDUCTION D ELAY MODERATE ST DEPRESSION ABNORMAL ECG NO PREVIOUS TRACING DOCTOR: Nelson Tang Interpretating Date/Time 07/19/2018 14:35:11
[2018-07-19] MEDS: Insulin NovoLIN Regular Correctional Sugar Inj SQ SCH ×3 (14:48→20:46)
--- NOTE | 2018-07-19 15:16 | P.CONPAL ---
Consult Service: Palliative Care Requesting Physician: Attila Dave Reason for Consult: a. To assist with evaluation and management of symptoms including: encephalopathy, pain, dyspnea. b. To assist medical decision maker(s) with: better understanding of current medical conditions; weighing benefits/burdens of medical treatment options; making medical treatment decisions. Primary Care Provider: UNKNOWN History of Present Illness History of Present Illness: Ms. Zamora is a 73 year old female with past medical history of hypertension, GERD, hypothyroidism, alcohol dependence (drinks a bottle of Vodka daily), chronic pain on Methadone and depression. Family reports she had been feeling ill in the days prior to presentation, coughing up a lot of phlegm. Patient presented to [facility] emergency department via EMS after she suffered and unwitnessed asystolic cardiac arrest at home. She had been last seen in her normal state of health about 2.5 hours prior. Her boyfriend came home to find her unresponsive. Upon EMS arrival she was in asytole. EMS noted a large amount of black emesis. CPR was started, she was given epinephrine x 2 and bicarb with ROSC. Combitube was placed. She then suffered a second cardiac arrest. She was intubated upon arrival to the ER. She was hypotensive, Levophed was started. GCS 3. Additional findings: * CT brain was negative. * EKG no ST elevation. * Troponin 0.11, 0.08 and 0.64 sequentially. * CT chest revealed right sided rib fractures. * WBC 20, hgb 11.7, hct 37, platelets 320, neutophils 36.6% * Ammonia 41 * Total creatine kinase, CK-MB 3.3, CK-MB % 1.6 * Alcohol level 157 * Tox screen - positive Benzodiazepines * creatinine 1.7, BUN 30, GFR 30, glucose 203 * T. Bili 0.2, AST 634, ALT 392, alk phos 89 * Total protein 5.8, Albumin 2.3 * Urine - + nitrate, leukocyte esterase, RBC, WBC, bacteria, preliminarily positive - gram negative rods * Blood cultures - no growth 1 day * sputum culture - pending. * CTA - negative pulmonary embolus. Patient was admitted to ICU post asystolic cardiac arrest. Patient remains sedated in ICU. Not breathing over vent, no cough with suctioning, does not blink to threat, pupils pinpoint, not following any commands, no withdraw to pain. Neurology, Dr. Sparrow was consulted for evaluation of anoxic encephalopathy. Discussed with Dr. Ag and Dr. Sparrow, plan to hold sedation to better evaluate neurologic status. EEG pending. If no improvement in neurologic status when off sedation, prognosis would be poor for meaningful recovery. No obvious signs of pain or dyspnea due to level of encephalopathy. Spoke with daughter, Evelia Lopez and granddaughter, Delia. Reviewed above findings and plan to hold sedation to reassess neuro status. Explained concern fo anoxic injury. Plan to meet again on 07/20/18 to provide medical update and further clarify goals of medical treatment. Family is going to discuss CODE status more and understand they need to let me know if they elect alternate code status. . Function/Cognitive Trajectory: Drinks alcohol on a regular basis. Decreased appetite due to alcohol use. Was living and functioning independently prior to admission. Review of Systems ROS per family reprot in days prior to admission, unable to obtain current ROS due to condition. Constitutional: Reports daytime sleepiness, Reports fatigue, Reports lack of energy Respiratory: Reports cough, Reports excessive phlegm production PMFSH - History History Provided By: Deputy Insurance Commissioner / EMT - Medical History Medical History: Medical History (Last Reviewed 07/18/18 @ 18:59 by Tianna Abdalla RN) GERD (gastroesophageal reflux disease) Hypertension Hypothyroid - Surgical History Surgical History: Surgical History (Last Updated 07/19/18 @ 10:16 by Valerie Ledesma MD) Hx of appendectomy Hx of rhinoplasty - Family History Family History: Family History (Last Updated 07/19/18 @ 10:18 by Valerie Ledesma MD) Other No significant family history - Social History I have reviewed the patient's Social History: Yes - Tobacco History Second Hand Smoke Exposure: No Smoking Status: Former smoker Tobacco Type: Cigarettes - Alcohol History How Often Do You Have a Drink Containing Alcohol: 4 or more times a week - Substance Use History Substance History: Unable to Obtain - Travel History Recent Travel in the [place] Within the Last 8 Weeks: No Recent Travel Out of the Country Within the Last 8 Weeks: No - Immunization History Tetanus Immunization: Unsure Medications and Allergies Active Medications: Active Medications Acetaminophen (Tylenol) 650 mg PO Q6H PRN PRN Reason: PAIN 1-10 AND/OR FEVER >101F Al Hydroxide/Mg Hydroxide (Milk Of Magnesia Liq) 30 ml PO Q12H PRN PRN Reason: Mild Constipation Albuterol (Duoneb Neb (Prn)) 1 ampul NEB Q2HR NEB PRN PRN Reason: WHEEZING Albuterol (Duoneb Neb (Letty)) 1 ampul NEB Q6HR NEB [facility] Last Admin: 07/19/18 09:59 Dose: 1 ampul Bisacodyl (Dulcolax Supp) 10 mg RECTAL DAILY PRN PRN Reason: SEVERE CONSITIPATION Chlorhexidine Gluconate (Peridex 0.12% Oral Kit) 15 ml OROPHARYNG BID@0800, 2000 [facility] Last Admin: 07/19/18 10:39 Dose: 15 ml Chlorhexidine Gluconate (Chlorhexidine 2% Cloth) 3 pack TOPICAL DAILY@0400 PRN PRN Reason: Extra cloth needed Stop: 07/24/18 03:59 Chlorhexidine Gluconate (Chlorhexidine 2% Cloth) 3 pack TOPICAL DAILY@0400 [facility] Stop: 07/24/18 03:59 Last Admin: 07/19/18 04:35 Dose: 3 pack Dextrose (D50w Vial) 50 ml IV.PUSH UNSCH PRN PRN Reason: PER HYPOGLYCEMIA PROTOCOL Famotidine (Pepcid Pf Inj) 20 mg IV.PUSH Q12HR [facility] Last Admin: 07/19/18 10:40 Dose: 20 mg Folic Acid (Folic Acid) 1 mg PO DAILY [facility] Last Admin: 07/19/18 11:37 Dose: 1 mg Glucagon (Glucagon Inj) 1 mg OTHER PRN PRN PRN Reason: for Hypoglycemia Protocol Hydralazine HCl (Apresoline Inj) 10 mg IV.PUSH Q6H PRN PRN Reason: SBP>160, DBP>90 Norepinephrine Bitartrate (Levophed-Dextrose 4 Mg/250 Ml Drip) 4 mg in 250 mls @ 7.5 mls/hr IV.SIG TITRATE PRN; Protocol PRN Reason: Per Protocol Last Titration: 07/18/18 20:45 Dose: 0 mcg/min, 0 mls/hr Sodium Chloride (Ns Inj) 1,000 mls @ 84 mls/hr IV.CONT .[id number] [facility] Last Admin: 07/19/18 10:38 Dose: 84 mls/hr Piperacillin/Tazobactam/Dextrose (Zosyn 2.25 Gm Premix) 50 mls @ 100 mls/hr IV.SIG Q6H LETTY Last Admin: 07/19/18 14:49 Dose: Not Given Fosphenytoin Sodium 100 mgpe/ (Sodium Chloride) 52 mls @ 208 mls/hr IV.SIG Q8HR LETTY Last Infusion: 07/19/18 14:49 Dose: Infused Propofol (Diprivan 1000 Mg/100 Ml Inj) 1,000 mg in 100 mls @ 2.31 mls/hr IV.CONT TITRATE PRN; Protocol PRN Reason: Per Protocol Last Admin: 07/19/18 10:00 Dose: 50 mcg/kg/min, 23.1 mls/hr Pantoprazole Sodium 80 mg/ (Sodium Chloride) 100 mls @ 10 mls/hr IV.CONT Q10H LETTY Last Admin: 07/19/18 11:42 Dose: 10 mls/hr Midazolam HCl (Versed Inj) 50 mg in 50 mls @ 2 mls/hr IV.CONT TITRATE PRN; Protocol PRN Reason: Per Protocol Thiamine HCl 100 mg/ Sodium (Chloride) 101 mls @ 100 mls/hr IV.SIG DAILY LETTY Last Infusion: 07/19/18 14:49 Dose: Infused Insulin Human Regular (Novolin R Correctional Sugar Inj) 0 units SQ Q4HR LETTY; Protocol Last Admin: 07/19/18 14:48 Dose: Not Given Labetalol HCl (Trandate Inj) 10 mg IV.PUSH Q4H PRN PRN Reason: SBP >160 Last Admin: 07/19/18 13:23 Dose: 10 mg Lactulose (Lactulose Liq) 30 ml PO DAILY PRN PRN Reason: SEVERE CONSITIPATION Metoprolol Tartrate (Lopressor) 25 mg PO BID [facility] Miscellaneous Medication () 1 each OROPHARYNG 0000,0400,1200,1600 LETTY Last Admin: 07/19/18 11:38 Dose: 1 each Multivitamins (Theragran) 1 tab PO DAILY LETTY Last Admin: 07/19/18 11:37 Dose: 1 tab Rifaximin (Xifaxan) 550 mg NG/OG Q12HR LETTY Last Admin: 07/19/18 10:40 Dose: 550 mg Senna/Docusate Sodium (Leighann-Colace) 1 tab PO BID LETTY Last Admin: 07/19/18 10:40 Dose: Not Given Sennosides (Senokot) 17.2 mg PO Q12H PRN PRN Reason: Moderate Constipation Sodium Chloride (Ns Flush) 2 ml IV.FLUSH UNSCH PRN PRN Reason: FLUSH AFTER USING IV ACCESS Sodium Chloride (Ns Flush) 2 ml IV.FLUSH BID [facility] Last Admin: 07/19/18 10:40 Dose: 2 ml Sodium Chloride (Ns Flush) 2 ml IV.FLUSH PRN PRN PRN Reason: FLUSH AFTER USING IV ACCESS Terbutaline Sulfate (Brethine Inj) 1 mg SQ UNSCH PRN PRN Reason: For Extravasation Allergies Allergy/AdvReac Type Severity Reaction Status Date / Time No Known Allergies AdvReac Unknown Uncoded 12/03/17 17:06 Advance Directives Living Will: No Healthcare Surrogate: No Health Care Surrogate Name and Number: Health care proxy, Evelia Lopez, daughter: [phone] Power of Preschool Adviser: No Today's verbally stated goals: Patient is not capacitated to make her own health care decisions, uncertain if she will regain capacity. Single. Has 1 daughter. No written advance directives. According to [place] statutes, health care proxy decision making falls to her daughter. Ethical and Legal Issues: Patient is not capacitated to make her own health care decisions, uncertain if she will regain capacity. Single. Has 1 daughter. No written advance directives. According to [place] statutes, health care proxy decision making falls to her daughter. Physical Exam Vital Signs: Vital Signs - 24 hr 07/18/18 17:14 07/18/18 17:15 07/18/18 17:20 Temperature Pulse Rate 120 H 108 H Respiratory Rate 18 Blood Pressure 172/82 H 140/60 Pulse Oximetry 99 99 07/18/18 17:22 07/18/18 17:37 07/18/18 17:40 Temperature Pulse Rate Respiratory Rate Blood Pressure 104/47 L Pulse Oximetry 100 100 07/18/18 17:43 07/18/18 17:48 07/18/18 17:55 Temperature Pulse Rate 110 H 106 H 106 H Respiratory Rate 18 18 Blood Pressure 121/64 147/70 H 174/87 H Pulse Oximetry 100 07/18/18 18:00 07/18/18 19:04 07/18/18 19:35 Temperature Pulse Rate 102 H Respiratory Rate 18 Blood Pressure 166/73 H Pulse Oximetry 100 97 07/18/18 20:00 07/18/18 21:00 07/18/18 22:00 Temperature 94.6 F L 94.8 F L Pulse Rate 82 72 79 Respiratory Rate 19 19 18 Blood Pressure 153/79 H 152/79 H 160/79 H Pulse Oximetry 100 100 100 07/18/18 23:00 07/18/18 23:45 07/19/18 00:00 Temperature 100.0 F H Pulse Rate 87 87 Respiratory Rate 18 18 18 Blood Pressure 189/89 H 205/101 H Pulse Oximetry 100 100 100 07/19/18 01:00 07/19/18 02:00 07/19/18 03:00 Temperature Pulse Rate 86 67 70 Respiratory Rate 16 16 16 Blood Pressure 202/110 H 155/81 H 164/90 H Pulse Oximetry 100 100 100 07/19/18 03:47 07/19/18 03:48 07/19/18 04:00 Temperature 97.9 F Pulse Rate 68 71 Respiratory Rate 16 16 16 Blood Pressure 142/83 H Pulse Oximetry 99 100 07/19/18 05:00 07/19/18 06:00 07/19/18 08:00 Temperature 97.7 F 97.6 F Pulse Rate 71 70 69 Respiratory Rate 16 18 16 Blood Pressure 142/83 H 142/81 H 142/78 H Pulse Oximetry 100 07/19/18 08:02 07/19/18 09:00 07/19/18 09:59 Temperature Pulse Rate 69 68 Respiratory Rate 16 16 Blood Pressure Pulse Oximetry 99 07/19/18 11:31 Temperature Pulse Rate Respiratory Rate 16 Blood Pressure Pulse Oximetry 98 I&O: Intake & Output 07/17/18 07/18/18 07/19/18 07/20/18 06:59 06:59 06:59 06:59 Intake Total 1943 / 1943 403 / 403 Output Total 1050 / 1050 Balance 893 / 893 403 / 403 Weight 77 kg Physical Exam: CONSTITUTIONAL/GENERAL: This is a critically ill patient, on [facility] vent. TUBES/LINES/DRAINS: ETT, OG, right subclavian CL, PIV bilateral, bilateral soft wrist restraints, Johnston. SKIN: No jaundice, rashes, or lesions. Ecchymoses on upper extremities. No wounds seen anteriorly. Skin temperature appropriate. Not diaphoretic. HEAD: Atraumatic. Normocephalic. EYES: Pupils pinpoint. ENT: Unable to assess hearing. nose without bleeding or purulent drainage. Throat difficult to visualize due to tubes. NECK: Trachea midline. CARDIOVASCULAR: Regular rate and rhythm without murmurs, gallops, or rubs. RESPIRATORY/CHEST: On mech vent. Breath sounds equal bilaterally. GASTROINTESTINAL: Abdomen soft, non-tender, nondistended. GENITOURINARY: Without palpable bladder distension. Johnston catheter in place. MUSCULOSKELETAL: Extremities without clubbing, cyanosis, or edema. LYMPHATICS: No palpable cervical or supraclavicular adenopathy. NEUROLOGICAL: Unresponsive. Not following commands, not breathing over vent, no withdraw to pain. PSYCHIATRIC: Unresponsive on sedation. Diagnostic Tests Laboratory: Laboratory Results - last 72 hr 07/18/18 07/18/18 07/18/18 17:00 17:00 17:20 CBC w Diff WBC RBC Hgb Hct MCV MCH MCHC RDW Plt Count MPV Neut % (Auto) Lymph % (Auto) [place] % (Auto) Eos % (Auto) Baso % (Auto) Neut # (Auto) Lymph # (Auto) [place] # (Auto) Eos # (Auto) Baso # (Auto) WBC Differential Seg Neuts % (Manual) Band Neuts % (Manual) Lymphocytes % (Manual) Monocytes % (Manual) Abs Neuts (Manual) Nucleated RBCs/100 WBC Differential Comment Platelet Estimate Platelet Morphology RBC Morphology PT INR APTT Puncture Site Patient Temperature O2 Saturation ABG pH ABG pCO2 ABG pO2 ABG HCO3 ABG O2 Content ABG Base Excess ABG Methemoglobin Nixon Test Hemoglobin Carboxyhemoglobin O2 Delivery Device Vent Setting Inspired O2 Critical Value Sodium Potassium Chloride Carbon Dioxide Anion Gap BUN Creatinine Estimated GFR POC Glucose Random Glucose Calcium Prot Corrected Calcium Phosphorus Magnesium Total Bilirubin AST ALT Alkaline Phosphatase Ammonia 41 H Total Creatine Kinase 204 H CK-MB (CK-2) 3.3 CK-MB (CK-2) % 1.6 Troponin I 0.11 H Total Protein Albumin Urine Color Urine Clarity Urine pH Ur Specific [place] Urine Protein Urine Glucose (UA) Urine Ketones Urine Occult Blood Urine Nitrate Urine Bilirubin Urine Urobilinogen Ur Leukocyte Esterase Urine RBC Urine WBC Urine WBC Clumps Ur Squamous Epith Cells Urine Bacteria Micro UA Comment Ur Microscopic Review Urine Culture Comments Nasal Screen MRSA (PCR) Urine Opiates Screen Ur Barbiturates Screen Phenytoin Ur Amphetamines Screen U Benzodiazepines Scrn Urine Cocaine Screen U Cannabinoids Screen Serum Alcohol 07/18/18 07/18/18 07/18/18 17:21 17:21 17:21 CBC w Diff Slide review pending WBC 20.0 H RBC 3.85 L Hgb 11.7 Hct 37.0 MCV 96.1 MCH 30.5 MCHC 31.7 L RDW 16.3 Plt Count 320 MPV 7.6 Neut % (Auto) 36.6 Lymph % (Auto) 56.8 H Toombs % (Auto) 5.3 Eos % (Auto) 0.6 Baso % (Auto) 0.7 Neut # (Auto) 7.3 Lymph # (Auto) 11.3 H [place] # (Auto) 1.1 H Eos # (Auto) 0.1 Baso # (Auto) 0.1 WBC Differential Manual diff final Seg Neuts % (Manual) 28 Band Neuts % (Manual) 4 Lymphocytes % (Manual) 58 H Monocytes % (Manual) 10 H Abs Neuts (Manual) 6.4 Nucleated RBCs/100 WBC 1 H Differential Comment . Platelet Estimate Normal Platelet Morphology Normal RBC Morphology Normal PT 10.7 INR 1.1 APTT 29.6 Puncture Site Patient Temperature O2 Saturation ABG pH ABG pCO2 ABG pO2 ABG HCO3 ABG O2 Content ABG Base Excess ABG Methemoglobin Nixon Test Hemoglobin Carboxyhemoglobin O2 Delivery Device Vent Setting Inspired O2 Critical Value Sodium 145 Potassium 3.9 Chloride 105 Carbon Dioxide 20.8 L Anion Gap 19 H BUN 30 H Creatinine 1.70 H Estimated GFR 30 L POC Glucose Random Glucose 203 H Calcium 7.2 L* Prot Corrected Calcium 7.9 L Phosphorus Magnesium Total Bilirubin 0.2 AST 634 H ALT 392 H Alkaline Phosphatase 89 Ammonia Total Creatine Kinase CK-MB (CK-2) CK-MB (CK-2) % Troponin I 0.08 H Total Protein 5.8 L Albumin 2.3 L Urine Color Urine Clarity Urine pH Ur Specific [place] Urine Protein Urine Glucose (UA) Urine Ketones Urine Occult Blood Urine Nitrate Urine Bilirubin Urine Urobilinogen Ur Leukocyte Esterase Urine RBC Urine WBC Urine WBC Clumps Ur Squamous Epith Cells Urine Bacteria Micro UA Comment Ur Microscopic Review Urine Culture Comments Nasal Screen MRSA (PCR) Urine Opiates Screen Ur Barbiturates Screen Phenytoin Ur Amphetamines Screen U Benzodiazepines Scrn Urine Cocaine Screen U Cannabinoids Screen Serum Alcohol 157 H 07/18/18 07/18/18 07/18/18 17:53 17:53 21:23 CBC w Diff WBC RBC Hgb Hct MCV MCH MCHC RDW Plt Count MPV Neut % (Auto) Lymph % (Auto) [place] % (Auto) Eos % (Auto) Baso % (Auto) Neut # (Auto) Lymph # (Auto) [place] # (Auto) Eos # (Auto) Baso # (Auto) WBC Differential Seg Neuts % (Manual) Band Neuts % (Manual) Lymphocytes % (Manual) Monocytes % (Manual) Abs Neuts (Manual) Nucleated RBCs/100 WBC Differential Comment Platelet Estimate Platelet Morphology RBC Morphology PT INR APTT Puncture Site Patient Temperature O2 Saturation ABG pH ABG pCO2 ABG pO2 ABG HCO3 ABG O2 Content ABG Base Excess ABG Methemoglobin Nixon Test Hemoglobin Carboxyhemoglobin O2 Delivery Device Vent Setting Inspired O2 Critical Value Sodium Potassium Chloride Carbon Dioxide Anion Gap BUN Creatinine Estimated GFR POC Glucose Random Glucose Calcium Prot Corrected Calcium Phosphorus Magnesium Total Bilirubin AST ALT Alkaline Phosphatase Ammonia Total Creatine Kinase CK-MB (CK-2) CK-MB (CK-2) % Troponin I Total Protein Albumin Urine Color Yellow Urine Clarity Slightly cloudy Urine pH 5.5 Ur Specific [place] 1.025 Urine Protein Negative Urine Glucose (UA) Negative Urine Ketones Negative Urine Occult Blood Small H Urine Nitrate Positive H Urine Bilirubin Negative Urine Urobilinogen 0.2 Ur Leukocyte Esterase Small H Urine RBC 4-15 H Urine WBC 21-50 H Urine WBC Clumps Few H Ur Squamous Epith Cells 0-5 Urine Bacteria Many H Micro UA Comment Cath-culture ind Ur Microscopic Review Microscopic reviewed Urine Culture Comments Cath-cult indicated Nasal Screen MRSA (PCR) Not detected Urine Opiates Screen Neg Ur Barbiturates Screen Neg Phenytoin Ur Amphetamines Screen Neg U Benzodiazepines Scrn Pos H Urine Cocaine Screen Neg U Cannabinoids Screen Neg Serum Alcohol 07/18/18 07/19/18 07/19/18 22:54 00:18 00:18 CBC w Diff WBC RBC Hgb 13.8 D Hct MCV MCH MCHC RDW Plt Count MPV Neut % (Auto) Lymph % (Auto) [place] % (Auto) Eos % (Auto) Baso % (Auto) Neut # (Auto) Lymph # (Auto) [place] # (Auto) Eos # (Auto) Baso # (Auto) WBC Differential Seg Neuts % (Manual) Band Neuts % (Manual) Lymphocytes % (Manual) Monocytes % (Manual) Abs Neuts (Manual) Nucleated RBCs/100 WBC Differential Comment Platelet Estimate Platelet Morphology RBC Morphology PT INR APTT Puncture Site Right radial Patient Temperature 98.6 O2 Saturation 98 ABG pH 7.35 L ABG pCO2 31 L ABG pO2 587 H ABG HCO3 17 L ABG O2 Content 20.0 ABG Base Excess -7.8 L ABG Methemoglobin 1.6 Nixon Test Present Hemoglobin 13.5 Carboxyhemoglobin 0.2 O2 Delivery Device Ventilator Vent Setting [id number]/8peep Inspired O2 100 Critical Value No Sodium Potassium Chloride Carbon Dioxide Anion Gap BUN Creatinine Estimated GFR POC Glucose Random Glucose Calcium Prot Corrected Calcium Phosphorus Magnesium Total Bilirubin AST ALT Alkaline Phosphatase Ammonia Total Creatine Kinase CK-MB (CK-2) CK-MB (CK-2) % Troponin I 0.64 H* D Total Protein Albumin Urine Color Urine Clarity Urine pH Ur Specific [place] Urine Protein Urine Glucose (UA) Urine Ketones Urine Occult Blood Urine Nitrate Urine Bilirubin Urine Urobilinogen Ur Leukocyte Esterase Urine RBC Urine WBC Urine WBC Clumps Ur Squamous Epith Cells Urine Bacteria Micro UA Comment Ur Microscopic Review Urine Culture Comments Nasal Screen MRSA (PCR) Urine Opiates Screen Ur Barbiturates Screen Phenytoin Ur Amphetamines Screen U Benzodiazepines Scrn Urine Cocaine Screen U Cannabinoids Screen Serum Alcohol 07/19/18 07/19/18 07/19/18 03:28 03:28 11:54 CBC w Diff WBC 9.6 D RBC 4.18 Hgb 13.3 Hct 39.0 MCV 93.2 MCH 31.8 MCHC 34.1 RDW 17.2 Plt Count 275 MPV 7.8 Neut % (Auto) 88.9 H Lymph % (Auto) 5.3 L [place] % (Auto) 5.7 Eos % (Auto) 0.0 Baso % (Auto) 0.1 Neut # (Auto) 8.6 H Lymph # (Auto) 0.5 L [place] # (Auto) 0.5 Eos # (Auto) 0.0 Baso # (Auto) 0.0 WBC Differential . Seg Neuts % (Manual) Band Neuts % (Manual) Lymphocytes % (Manual) Monocytes % (Manual) Abs Neuts (Manual) Nucleated RBCs/100 WBC Differential Comment Auto diff final Platelet Estimate Platelet Morphology RBC Morphology PT INR APTT Puncture Site Patient Temperature O2 Saturation ABG pH ABG pCO2 ABG pO2 ABG HCO3 ABG O2 Content ABG Base Excess ABG Methemoglobin Nixon Test Hemoglobin Carboxyhemoglobin O2 Delivery Device Vent Setting Inspired O2 Critical Value Sodium 146 H Potassium 4.4 Chloride 108 H Carbon Dioxide 24.0 Anion Gap 14 BUN 36 H Creatinine 1.82 H Estimated GFR POC Glucose 232 H Random Glucose 214 H Calcium 7.6 L Prot Corrected Calcium Phosphorus 4.9 Magnesium 1.4 L Total Bilirubin 0.4 AST 1169 H ALT 538 H Alkaline Phosphatase 107 Ammonia Total Creatine Kinase CK-MB (CK-2) CK-MB (CK-2) % Troponin I Total Protein 6.7 D Albumin 2.8 L Urine Color Urine Clarity Urine pH Ur Specific [place] Urine Protein Urine Glucose (UA) Urine Ketones Urine Occult Blood Urine Nitrate Urine Bilirubin Urine Urobilinogen Ur Leukocyte Esterase Urine RBC Urine WBC Urine WBC Clumps Ur Squamous Epith Cells Urine Bacteria Micro UA Comment Ur Microscopic Review Urine Culture Comments Nasal Screen MRSA (PCR) Urine Opiates Screen Ur Barbiturates Screen Phenytoin 10.8 Ur Amphetamines Screen U Benzodiazepines Scrn Urine Cocaine Screen U Cannabinoids Screen Serum Alcohol Result Diagrams: 07/19/18 03:28 07/19/18 03:28 Microbiology: Microbiology 07/18/18 17:53 Urine Culture - Preliminary Clean Catch Urine gram negative rods 07/18/18 17:05 Aerobic Blood Culture - Preliminary Blood - Peripheral No growth in 1 day Anaerobic Blood Culture - Preliminary No growth in 1 day 07/18/18 17:00 Aerobic Blood Culture - Preliminary Blood - Peripheral No growth in 1 day Anaerobic Blood Culture - Preliminary No growth in 1 day 07/19/18 04:26 Gram Stain - Final Sputum - Endotracheal Imaging: Chest CTA 07/18/18 17:48 CONCLUSION: 1. No evidence of pulmonary embolism. No filling defects are identified. 2. 2 fractures on the right are probably acute. There are number of other deformed ribs anteriorly on the left which are more likely chronic. Head CT 07/18/18 17:48 CONCLUSION: 1. Negative CT Head non contrast. . Abdomen Ultrasound 07/19/18 00:00 CONCLUSION: 1. Apparent small amount of sludge within the gallbladder with no definite stones. 2. The common bile duct appears mildly prominent at 8 mm. 3. The kidneys are small in size with no evidence of obstruction or focal lesion. Chest X-Ray 07/19/18 02:27 CONCLUSION: 1. Right subclavian central venous catheter extends cephalad. 2. Endotracheal tube and nasogastric tube are appropriately positioned. 3. Mild bibasilar patchy infiltrate. Procedures: * 07/18/18 - asystolic arrest x 2, intubated, central line placed. Patient/Family Conference Issues Discussed: * Palliative care role, purpose, approach * Additional medical, psychosocial, and spiritual history * Patients general health, functional status, and cognitive changes in the months leading up to the current hospitalization * Patient/family understanding of the current medical problems * Patient/family understanding of prognosis * Patients goals of care as best understood from advance directives and/or conversations and/or values * Current medical treatment options and benefits/burdens of those options * Likely scenarios comparing ongoing aggressive care with a transition to comfort measures only * Questions answered to the best of my ability * Palliative care contact information provided Assessment and Plan - Disease Oriented Problem List (1) Cardiac arrest (2) Respiratory failure with hypoxia (3) HTN (hypertension) (4) Shock (5) Anoxic encephalopathy (6) UTI (urinary tract infection) (7) Coffee ground vomiting (8) Alcohol dependence (9) WM (acute kidney injury) (10) Hyperglycemia (11) Multiple rib fractures - Symptom Scale (1) Pain 0-10 Scale: Unable to quantify (2) Dyspnea 0-10 Scale: Unable to quantify Pertinent Non-Medical Issues: Psychosocial: 3 years ago. Has a recent "boyfriend" who has been staying with her. Has 1 adult daughter and 2 granddaughters, live local. Spiritual: None. Declines blocker and sewer support. Legal:Patient is not capacitated to make her own health care decisions, uncertain if she will regain capacity. Single. Has 1 daughter. No written advance directives. According to [place] statutes, health care proxy decision making falls to her daughter. Ethical issues impacting care: None. Important Contacts: * Evelia Lopez, dtr/ hcp: [phone] Prognosis: Discussed with Dr. Ag and Dr. Sparrow, plan to hold sedation to better evaluate neurologic status. EEG pending. If no improvement in neurologic status when off sedation, prognosis would be poor for meaningful recovery. Code Status: Full Code Plan: * Patient is not capacitated to make her own health care decisions, uncertain if she will regain capacity. Single. Has 1 daughter. No written advance directives. According to [place] statutes, health care proxy decision making falls to her daughter. * FULL CODE - daughter considering and knows to notify team if she decides for alternate code status. * Goals remain aggressive at this time. Will meet again 07/20/18 to provide update and further clarify goals. * SYMPTOMS: Pain and dyspnea: currently sedated on mech vent, no obvious signs of pain or SOB. Will monitor closely when off sedation. * Palliative care number provided. * Palliative care will continue to follow to assist with symptom management and clarification of medical treatment goals. Appreciation Thank you for the opportunity to participate in the care of Linda Zamora. Attestation Attestation: To help prompt me to consider important information that might be impacting today's encounter and assessment, information from prior notes written by myself or my colleagues may have been "brought forward" into today's note. My signature on this note, however, is an attestation that I personally performed the exam, history, and/or decision-making noted today, and, unless otherwise indicated, the interactions with patient, family, and staff as well as the review of records all occurred today. I also attest that the listed assessment and stated plan reflect my best clinical judgment today based on the combination of historical information, prior notes, and today's exam/ interactions. When time spent is documented, it refers only to time spent today by the signer, or if indicated, combined time spent today by collaborating physician/nurse practitioner.
[2018-07-19] MEDS: hydrALAZINE HCl Inj 20 MG/ML Vial IV.PUSH PRN ×2 (15:35→22:38)
[2018-07-19] MEDS: Metoprolol Tartrate 25 MG Tablet PO SCH (20:37)
--- NOTE | 2018-07-19 20:49 | MG ---
cc: Jaz Sparrow MD, Alaa MD ELECTROENCEPHALOGRAM NUMBER: [id number] REFERRING PHYSICIAN: Attila Dave MD CLINICAL HISTORY: Intubated. On Diprivan. Turned off at 9:25 in the morning for the study, EEG. Photic done. Continuous under right eye twitching throughout EEG noted by the staff. Deep tactile simulation without any withdrawal x [address] did not show anything acute. A 73-year-old woman with an asystole, rule out possible anoxic encephalopathy. She had an ethanol level of 157. DESCRIPTION OF RECORD: Very low-amplitude EEG. There is a lot of muscle artifact, as stated by the analytical lab technician previously, but the eye flutter does not correlate with any epileptiform features. Again, low amplitude, diffuse slowing. Photic stimulation was done toward the end. I do not see any driving response. No change in the EEG with stimulation of the patient. Quite a bit of ICU artifact in the frontal jhaveri as well. Eyes were open and there was a lot of artifact and then it resolved when the eyes closed. IMPRESSION: Abnormal electroencephalogram due to diffuse slowing of background seen with diffuse cerebral dysfunction, possibly with an anoxia. Would recommend a repeat study with the patient completely off sedation. No epileptiform features. MD RM Friedman/jesica , 08:26 PM , 08:31 PM
[2018-07-20] MEDS: Piperacil/Tazo 2.25 GM Premix 50 ML IV.SIG SCH ×4 (00:11→17:20)
[2018-07-20] MEDS: Insulin NovoLIN Regular Correctional Sugar Inj SQ SCH ×6 (00:11→22:18)
[2018-07-20] MEDS: Oral Hygiene Kit OROPHARYNG SCH ×4 (00:11→17:20)
[2018-07-20] MEDS: Labetalol HCl Inj 100 MG/20 ML Vial IV.PUSH PRN ×2 (01:36→08:16)
[2018-07-20] MEDS: Sod Chloride 0.9% Inj 1,000 ML IV.CONT SCH ×3 (01:41→21:19)
[2018-07-20] MEDS: Chlorhexidine Gluconate 2% 1 Pack (2 Cloths) TOPICAL SCH (04:09)
[2018-07-20] MEDS: hydrALAZINE HCl Inj 20 MG/ML Vial IV.PUSH PRN ×3 (04:13→17:20)
[2018-07-20] MEDS: Fosphenytoin Inj 100 MGPE in Sodium Chlor 0.9% Inj 50 ML IV.SIG SCH ×3 (05:28→21:22)
[2018-07-20 06:13] LABS: Baso % (Auto) 0.2 % (0.0-2.0); Hematocrit 39.8 % (35.0-46.0); Hemoglobin 14.1 gm/dL (11.6-15.3); Lymph % (Auto) 7.9 % (9.0-44.0); Mean Corpuscular HGB Conc 35.4 % (32.0-36.0); Mean Corpuscular Hemoglobin 32.1 pg (27.0-34.0); Mean Corpuscular Volume 90.7 fL (80.0-100.0); Mean Platelet Volume 7.8 fL (7.0-11.0); Mono # (Auto) 0.8 th/mm3 (0.0-0.9); Mono % (Auto) 6.2 % (0.0-8.0); Neut # (Auto) 10.6 th/mm3 (1.8-7.7); Neut % (Auto) 85.7 % (16.0-70.0); Platelet Count 279 th/mm3 (150-450); Red Blood Count 4.38 mil/mm3 (4.00-5.30); Red Cell Distribution Width 17.7 % (11.6-17.2); White Blood Count 12.3 th/mm3 (4.0-11.0)
[2018-07-20 06:37] LABS: Alanine Aminotransferase 423 U/L (10-53); Albumin 2.7 g/dL (3.4-5.0); Alkaline Phosphatase 105 U/L (45-117); Anion Gap 12 meq/L (5-15); Aspartate Aminotransferase 359 U/L (15-37); Blood Urea Nitrogen 29 mg/dL (7-18); Calcium 7.6 mg/dL (8.5-10.1); Carbon Dioxide 23.5 meq/L (21.0-32.0); Chloride 105 meq/L (98-107); Glomerular Filtration Rate 37 mL/min (>89); Glucose,Random 177 mg/dL (74-106); Magnesium 1.3 mg/dL (1.5-2.5); Phosphorus 2.7 mg/dL (2.5-4.9); Potassium 3.5 meq/L (3.5-5.1); Sodium 140 meq/L (136-145); Total Protein 7.2 g/dL (6.4-8.2)
--- NOTE | 2018-07-20 08:14 | P.PNCC ---
Subjective Subjective Remarks/Hospital Course: 73-year-old female with past medical history of hypertension, GERD, hypothyroidism, alcohol dependence, chronic pain on methadone, depression who presented to [facility] following asystolic cardiac arrest. She had last been seen normal about 2-1/2 hours prior. Her boyfriend came home and found her unresponsive. When [facility] arrived she was in asystole. She had a large amount of black emesis at the scene. CPR was initiated and she was given epinephrine x2 and bicarb and had ROSC. Combitube was placed. Had a second cardiac arrest. She was intubated in the emergency department. She was initially hypotensive and was started on Levophed. CT brain was negative for acute abnormality. CT chest demonstrates multiple right-sided rib fractures. There is no pulmonary embolism. EKG has no ST elevation. Troponin 0 0.11. Her daughter states she was having a cough and spitting up some phlegm yesterday. She drinks a bottle of vodka daily. She has been depressed since her 3 years ago. Her daughter is her only child. She has no advanced directive. 07/19 Patient is sedated with Diprivan and intubated. Unresponsive. 07/20 Patient is off sedation unresponsive. On Protonix drip. Afebrile. Objective Vital Signs / I&O: Vital Signs 07/19/18 08:00 07/19/18 08:02 07/19/18 09:00 Temperature 97.6 F Pulse Rate 69 69 Respiratory Rate 16 16 Blood Pressure 142/78 H Pulse Oximetry 99 07/19/18 09:59 07/19/18 11:31 07/19/18 12:00 Temperature 97.7 F Pulse Rate 68 74 Respiratory Rate 16 16 16 Blood Pressure 146/81 H Pulse Oximetry 98 07/19/18 15:50 07/19/18 16:00 07/19/18 20:00 Temperature 97.7 F 97.8 F Pulse Rate 88 92 H 103 H Respiratory Rate 16 16 16 Blood Pressure 160/74 H 201/98 H Pulse Oximetry 100 100 07/19/18 21:36 07/20/18 00:00 07/20/18 00:49 Temperature 97.5 F L Pulse Rate 92 H 100 H Respiratory Rate 18 16 17 Blood Pressure 176/86 H Pulse Oximetry 100 99 98 07/20/18 04:00 07/20/18 04:58 07/20/18 05:00 Temperature 97.4 F L Pulse Rate 92 H 93 H Respiratory Rate 16 16 Blood Pressure 194/104 H 144/71 H Pulse Oximetry 99 98 Intake & Output 07/19/18 07/20/18 07/20/18 18:59 06:59 18:59 Intake Total 453 / 453 1404 / 1404 Output Total 2350 / 2350 2525 / 2525 Balance -1897 / -1897 -1121 / -1121 Weight 75 kg Intake: IV 453 / 453 1304 / 1304 Protonix Inj 80 MG In NS Inj 100 / 100 100 / 100 100 ML @ 10 mls/hr IV.CONT Q10H SUNITA Rx#:[id number] Diprivan 1000 mg/100 ml Inj 1, 100 / 100 000 mg In 100 ml @ 5 MCG/KG/MIN 2.31 mls/hr IV.CONT TITRATE PRN Rx#:[id number] NS Inj 1,000 ML @ 84 mls/hr IV. 1000 / 1000 CONT .[id number] SUNITA Rx#: [id number] Cerebyx Inj 100 MGPE In NS Inj 52 / 52 104 / 104 50 ML @ 208 mls/hr IV.SIG Q8HR SUNITA Rx#:[id number] Zosyn 2.25 GM Premix 50 ML @ 100 / 100 100 / 100 100 mls/hr IV.SIG Q6H SUNITA Rx#: [id number] Thiamine Inj 100 MG In NS Inj 101 / 101 100 ML @ 100 mls/hr IV.SIG DAILY SUNITA Rx#:[id number] Water Bolus Amount 100 / 100 Output: Stool 0 / 0 Urine Amount (Catheter) 2049 2500 / 2500 Indwelling Urethral Catheter 2049 2500 / 2500 Gastric Drainage 300 / 300 25 / 25 Orogastric Tube 300 / 300 25 / 25 Result Diagrams: 07/20/18 05:20 07/20/18 05:20 Other Results: Laboratory Results - last 12 hr 07/19/18 07/20/18 07/20/18 20:45 00:09 04:08 WBC RBC Hgb Hct MCV MCH MCHC RDW Plt Count MPV Neut % (Auto) Lymph % (Auto) [place] % (Auto) Eos % (Auto) Baso % (Auto) Neut # (Auto) Lymph # (Auto) [place] # (Auto) Eos # (Auto) Baso # (Auto) WBC Differential Differential Comment Sodium Potassium Chloride Carbon Dioxide Anion Gap BUN Creatinine Estimated GFR POC Glucose 200 H 162 H 163 H Random Glucose Calcium Phosphorus Magnesium Total Bilirubin AST ALT Alkaline Phosphatase Ammonia Total Protein Albumin 07/20/18 07/20/18 07/20/18 05:20 05:20 05:20 WBC 12.3 H RBC 4.38 Hgb 14.1 Hct 39.8 MCV 90.7 MCH 32.1 MCHC 35.4 RDW 17.7 H Plt Count 279 MPV 7.8 Neut % (Auto) 85.7 H Lymph % (Auto) 7.9 L [place] % (Auto) 6.2 Eos % (Auto) 0.0 Baso % (Auto) 0.2 Neut # (Auto) 10.6 H Lymph # (Auto) 1.0 [place] # (Auto) 0.8 Eos # (Auto) 0.0 Baso # (Auto) 0.0 WBC Differential . Differential Comment Auto diff final Sodium 140 Potassium 3.5 D Chloride 105 Carbon Dioxide 23.5 Anion Gap 12 BUN 29 H Creatinine 1.41 H Estimated GFR 37 L POC Glucose Random Glucose 177 H Calcium 7.6 L Phosphorus 2.7 D Magnesium 1.3 L Total Bilirubin 0.5 AST 359 H ALT 423 H Alkaline Phosphatase 105 Ammonia 15 Total Protein 7.2 Albumin 2.7 L Imaging: Chest CTA 07/18/18 17:48 CONCLUSION: 1. No evidence of pulmonary embolism. No filling defects are identified. 2. 2 fractures on the right are probably acute. There are number of other deformed ribs anteriorly on the left which are more likely chronic. Head CT 07/18/18 17:48 CONCLUSION: 1. Negative CT Head non contrast. . Abdomen Ultrasound 07/19/18 00:00 CONCLUSION: 1. Apparent small amount of sludge within the gallbladder with no definite stones. 2. The common bile duct appears mildly prominent at 8 mm. 3. The kidneys are small in size with no evidence of obstruction or focal lesion. Chest X-Ray 07/19/18 02:27 CONCLUSION: 1. Right subclavian central venous catheter extends cephalad. 2. Endotracheal tube and nasogastric tube are appropriately positioned. 3. Mild bibasilar patchy infiltrate. Objective Remarks: GENERAL: Patient is 73 yo intubated unresponsive SKIN: Warm and dry. HEAD: Normocephalic. EYES: No scleral icterus. No injection or drainage. NECK: Supple, trachea midline. No JVD or lymphadenopathy. CARDIOVASCULAR: Regular rate and rhythm without murmurs, gallops, or rubs. RESPIRATORY: Breath sounds equal bilaterally. No accessory muscle use. GASTROINTESTINAL: Abdomen soft, non-tender, nondistended. MUSCULOSKELETAL: No cyanosis, or edema. Neuro: Intubated, unresponsive. No cough, gag reflex. Assessment and Plan - Problem List (1) Respiratory failure with hypoxia Code(s): J96.91 - Respiratory failure, unspecified with hypoxia Status: Acute (2) HTN (hypertension) Code(s): I10 - Essential (primary) hypertension Status: Chronic (3) Shock Code(s): R57.9 - Shock, unspecified Status: Resolved (4) Hepatic encephalopathy Code(s): K72.90 - Hepatic failure, unspecified without coma Status: Acute (5) Coma Code(s): R40.20 - Unspecified coma Status: Acute (6) Anoxic encephalopathy Code(s): G93.1 - Anoxic brain damage, not elsewhere classified Status: Acute (7) Seizure Code(s): R56.9 - Unspecified convulsions Status: Acute (8) UTI (urinary tract infection) Code(s): N39.0 - Urinary tract infection, site not specified Status: Acute (9) GERD (gastroesophageal reflux disease) Code(s): K21.9 - Gastro-esophageal reflux disease without esophagitis Status: Chronic (10) Coffee ground vomiting Code(s): K92.0 - Hematemesis Status: Acute (11) Diarrhea Code(s): R19.7 - Diarrhea, unspecified Status: Acute (12) Alcohol dependence Code(s): F10.20 - Alcohol dependence, uncomplicated Status: Chronic (13) Ischemic hepatitis Code(s): K75.9 - Inflammatory liver disease, unspecified Status: Acute (14) Cirrhosis Code(s): K74.60 - Unspecified cirrhosis of liver Status: Chronic (15) WM (acute kidney injury) Code(s): N17.9 - Acute kidney failure, unspecified Status: Acute (16) Cardiac arrest Code(s): I46.9 - Cardiac arrest, cause unspecified Status: Acute (17) Hyperglycemia Code(s): R73.9 - Hyperglycemia, unspecified Status: Acute (18) Chronic pain Code(s): G89.29 - Other chronic pain Status: Chronic (19) Multiple rib fractures Code(s): S22.49XA - Multiple fractures of ribs, unspecified side, initial encounter for closed fracture Status: Acute - Assessment and Plan Plan: NEURO: Coma Anoxic encephalopathy Seizure Fosphenytoin load and 100 mg PE q8 hours. Dilantin level 10.8 07/19 Off sedation EEG: Diffuse slowing of background seen with diffuse cerebral dysfunction, possibly with an anoxia. No epileptiform features. CT brain no acute abnormality. Hyperammonemia Rifaximin 550 mg p.o. twice daily Alcohol dependence Acute alcohol intoxication upon presentation Thiamine/multivitamin/folic acid supplementation. Neuro is following- Dr. Sparrow RESP: Acute hypoxic respiratory failure Multiple rib fractures PRVC. Ventilator bundle. Neuro status prevents extubation Continue with vent support keep sats >92% Bronchodilators, ICU vent bundle. CXR: Mild bibasilar patchy infiltrate CV: Asystolic cardiac arrest Hypotension postarrest (resolved) Hypertension Elevated troponin - likely demand ischemia following respiratory arrest Monitor HR and BP keep MAP>65mmHg Increase Lopressor 50mg BID for BP control. Monitor trop, for 2D echo to eval LV function GI: Coffee-ground output from OG tube Vomiting Diarrhea present on admission Cirrhosis Elevated LFT's...trending down Ischemic hepatitis versus acute alcoholic hepatitis NPO. OGT to LIWS On Protonix drip Consult GI if evidence of significant active bleeding. US liver: small amount of sludge within the gallbladder with no definite stones. The common bile duct appears mildly prominent at 8 mm. Check Hepatitis profile. FEN/RENAL: Acute kidney injury- improving NS 84 mL/h. Johnston in place. Monitor intake and output. Monitor electrolytes and replace as indicated. Renal function is improving with Cr: 1.41 from 1.82 ID: UTI present on admission Leukocytosis Follow-up blood urine and sputum culture. Zosyn 2.25 g IV every 6 hours HEME: Monitor CBC. Transfuse as needed for Hgb < 7. ENDO: Acute hyperglycemia Monitor bedside glucose every 4 hours and administer low-dose insulin sliding scale as indicated. PROPH: SCDs for DVT prophylaxis. Pharmacologic DVT prophylaxis contraindicated due to GI bleeding. Protonix as per above ACCESS: Right subclavian central venous line placed 07/19 Palliative care is following Full code Critical care time 35 minutes exclusive of separately billable procedure (12) Alcohol dependence Qualifiers: Substance use status: with intoxication
[2018-07-20] MEDS: Senna/Docusate Sodium 8.6/50 MG Tablet PO SCH ×2 (08:16→21:21)
[2018-07-20] MEDS: Metoprolol Tartrate 25 MG Tablet PO SCH ×2 (08:16→21:20)
[2018-07-20] MEDS: rifAXIMin 550 MG Tablet NG/OG SCH ×2 (08:16→21:21)
[2018-07-20] MEDS: Folic Acid 1 MG Tablet PO SCH (08:16)
[2018-07-20] MEDS: Famotidine PF Inj 20 MG/2 ML Vial IV.PUSH SCH ×2 (08:16→21:21)
[2018-07-20] MEDS: Chlorhexidine 0.12% Oral Kit 15 ML UDC OROPHARYNG SCH ×2 (08:17→21:20)
[2018-07-20] MEDS: Pantoprazole Inj 80 MG in Sodium Chlor 0.9% Inj 100 ML IV.CONT SCH ×2 (08:40→19:56)
[2018-07-20] MEDS: Thiamine Inj 100 MG in Sodium Chlor 0.9% Inj 100 ML IV.SIG SCH (10:35)
[2018-07-20] MEDS ORDERED: Potassium Phosphate 500 MG Soluble Tablet PO PRN ×2 (12:41)
[2018-07-20] MEDS ORDERED: Potassium Chlor 20 mEq Premix 20 MEQ/100 ML PIGGYBACK IV.SIG PRN (12:41)
[2018-07-20] MEDS ORDERED: Sodium Phosphate Inj 30 MMOL in Sodium Chlor 0.9% Inj 250 ML IV.SIG PRN (12:41)
[2018-07-20] MEDS ORDERED: Magnesium Sulfate Inj 4 GM in Sodium Chlor 0.9% Inj 92 ML IV.SIG PRN (12:41)
[2018-07-20] MEDS ORDERED: Potassium Phosphate Inj 30 MMOL in Sodium Chlor 0.9% Inj 250 ML IV.SIG PRN (12:41)
[2018-07-20] MEDS ORDERED: Potassium Chloride 25 MEQ Effervescent Tablet PO PRN (12:41)
[2018-07-20] MEDS ORDERED: Magnesium Oxide 400 MG Tablet PO PRN (12:41)
[2018-07-20] MEDS ORDERED: Potassium Chlor 40 mEq Premix 40 MEQ/100 ML PIGGYBACK IV.SIG PRN ×2 (12:41)
[2018-07-20] MEDS ORDERED: Magnesium Sulfate Inj 2 GM in Sodium Chlor 0.9% Inj 96 ML IV.SIG PRN (12:41)
[2018-07-20 13:18] LABS: Hepatitits B Surface Antigen Nonreactive (Nonreactive)
[2018-07-20 13:52] LABS: Hepatitis A IgM Antibody Nonreactive (Nonreactive)
--- NOTE | 2018-07-20 18:02 | P.PNPAL ---
Reason for Visit Reason for visit: a. To assist with evaluation and management of symptoms including: encephalopathy, pain, dyspnea. b. To assist medical decision maker(s) with: better understanding of current medical conditions; weighing benefits/burdens of medical treatment options; making medical treatment decisions. Subjective Subjective/Interval History: Patient seen and examined in ICU. Daughter at bedside. Patient has been off sedation for approximately 24 hours she remains unresponsive. She breathes over mechanical vent, no cough, no gag, no withdraw to pain, does not follow commands, eyes open not tracking, does not blink to threat. WBC 12.3. Creatinine 1.41, total bilirubin 0.5, AST 359, ALT 423. Hypertensive. Family/Friend Interactions: Met with daughterEvelia at bedside. Medical update provided. Reviewed concern for anoxic brain injury given that patient has been off of sedation for the past 24 hours and is not showing any signs of neurologic improvement. She is still considering CODE STATUS, seems to be indicating that patient would not want cardiac resuscitation. Daughter verbalizes she is not yet ready to make this decision, she does not want her mother to suffer, however she is not yet ready to lose her mother. She indicates that it is not fair that she will only have her mother for 48 years. She indicates that her mother would not want to "live like a vegetable." We talked about possible transition to comfort with withdrawal of life support if no neurologic improvement vs continued aggressive care. She is tearful and appreciative of the discussion about possible scenarios she may face. Advance Directives Living Will: Never completed Health Care Surrogate: Never completed Durable Power of [place]: Never completed Health Care Surrogate Name and Number: Health care proxy, Evelia Lopez, daughter: [phone] Significant change in goals:: FULL CODE. Goals remain aggressive. Daughter wants to speak with additional family about CODE status before considering DNR. Objective Vital Signs: Vital Signs 07/19/18 20:00 07/19/18 21:36 07/20/18 00:00 Temperature 97.8 F 97.5 F L Pulse Rate 103 H 92 H 100 H Respiratory Rate 16 18 16 Blood Pressure 201/98 H 176/86 H Pulse Oximetry 100 100 99 07/20/18 00:49 07/20/18 04:00 07/20/18 04:58 Temperature 97.4 F L Pulse Rate 92 H 93 H Respiratory Rate 17 16 16 Blood Pressure 194/104 H Pulse Oximetry 98 99 98 07/20/18 05:00 07/20/18 08:00 07/20/18 09:00 Temperature 97.6 F Pulse Rate 92 H 82 Respiratory Rate 16 16 Blood Pressure 144/71 H 178/97 H Pulse Oximetry 99 07/20/18 12:00 07/20/18 15:00 07/20/18 15:44 Temperature 97.7 F Pulse Rate 76 77 Respiratory Rate 16 17 16 Blood Pressure 131/71 Pulse Oximetry 99 100 07/20/18 16:00 Temperature 97.6 F Pulse Rate 77 Respiratory Rate 16 Blood Pressure 167/90 H Pulse Oximetry 99 Intake & Output 07/19/18 07/20/18 07/20/18 18:59 06:59 18:59 Intake Total 453 / 453 1404 / 1404 1202 / 1202 Output Total 2350 / 2350 2525 / 2525 Balance -1897 / -1897 -1121 / -1121 1202 / 1202 Weight 75 kg Intake: IV 453 / 453 1304 / 1304 1202 / 1202 Protonix Inj 80 MG In NS Inj 100 / 100 100 / 100 100 / 100 100 ML @ 10 mls/hr IV.CONT Q10H SUNITA Rx#:[id number] Diprivan 1000 mg/100 ml Inj 1, 100 / 100 000 mg In 100 ml @ 5 MCG/KG/MIN 2.31 mls/hr IV.CONT TITRATE PRN Rx#:[id number] NS Inj 1,000 ML @ 84 mls/hr IV. 1000 / 1000 1000 / 1000 CONT .[id number] SUNITA Rx#: [id number] Cerebyx Inj 100 MGPE In NS Inj 52 / 52 104 / 104 52 / 52 50 ML @ 208 mls/hr IV.SIG Q8HR SUNITA Rx#:[id number] Zosyn 2.25 GM Premix 50 ML @ 100 / 100 100 / 100 50 / 50 100 mls/hr IV.SIG Q6H SUNITA Rx#: [id number] Thiamine Inj 100 MG In NS Inj 101 / 101 100 ML @ 100 mls/hr IV.SIG DAILY SUNITA Rx#:[id number] Water Bolus Amount 100 / 100 Output: Stool 0 / 0 Urine Amount (Catheter) 2049 2500 / 2500 Indwelling Urethral Catheter 2049 2500 / 2500 Gastric Drainage 300 / 300 25 / 25 Orogastric Tube 300 / 300 25 / 25 Other: Date of Last Bowel Movement 07/19/18 Physical Exam: CONSTITUTIONAL/GENERAL: This is a critically ill patient, on mech vent. TUBES/LINES/DRAINS: ETT, OG, right subclavian CL, PIV bilateral, bilateral soft wrist restraints, Johnston. SKIN: No jaundice, rashes, or lesions. Ecchymoses on upper extremities. No wounds seen anteriorly. Skin temperature appropriate. Not diaphoretic. EYES: Pupils pinpoint. ENT: Unable to assess hearing. nose without bleeding or purulent drainage. Throat difficult to visualize due to tubes. CARDIOVASCULAR: Regular rate and rhythm without murmurs. RESPIRATORY/CHEST: On mech vent. Breath sounds equal bilaterally. GASTROINTESTINAL: Abdomen soft, nondistended. GENITOURINARY: Without palpable bladder distension. Johnston catheter in place. MUSCULOSKELETAL: Extremities without clubbing, cyanosis, or edema. NEUROLOGICAL: Unresponsive. Not following commands, breathing over vent, no withdraw to pain. No cough or gag. Does not blink to threat. PSYCHIATRIC: Unresponsive off sedation. Diagnostic Tests Laboratory: Laboratory Results - last 72 hr 07/18/18 07/18/18 07/18/18 17:00 17:00 17:20 CBC w Diff WBC RBC Hgb Hct MCV MCH MCHC RDW Plt Count MPV Neut % (Auto) Lymph % (Auto) [place] % (Auto) Eos % (Auto) Baso % (Auto) Neut # (Auto) Lymph # (Auto) [place] # (Auto) Eos # (Auto) Baso # (Auto) WBC Differential Seg Neuts % (Manual) Band Neuts % (Manual) Lymphocytes % (Manual) Monocytes % (Manual) Abs Neuts (Manual) Nucleated RBCs/100 WBC Differential Comment Platelet Estimate Platelet Morphology RBC Morphology PT INR APTT Puncture Site Patient Temperature O2 Saturation ABG pH ABG pCO2 ABG pO2 ABG HCO3 ABG O2 Content ABG Base Excess ABG Methemoglobin Nixon Test Hemoglobin Carboxyhemoglobin O2 Delivery Device Vent Setting Inspired O2 Critical Value Sodium Potassium Chloride Carbon Dioxide Anion Gap BUN Creatinine Estimated GFR POC Glucose Random Glucose Calcium Prot Corrected Calcium Phosphorus Magnesium Total Bilirubin AST ALT Alkaline Phosphatase Ammonia 41 H Total Creatine Kinase 204 H CK-MB (CK-2) 3.3 CK-MB (CK-2) % 1.6 Troponin I 0.11 H Total Protein Albumin Urine Color Urine Clarity Urine pH Ur Specific [place] Urine Protein Urine Glucose (UA) Urine Ketones Urine Occult Blood Urine Nitrate Urine Bilirubin Urine Urobilinogen Ur Leukocyte Esterase Urine RBC Urine WBC Urine WBC Clumps Ur Squamous Epith Cells Urine Bacteria Micro UA Comment Ur Microscopic Review Urine Culture Comments Nasal Screen MRSA (PCR) Urine Opiates Screen Ur Barbiturates Screen Phenytoin Ur Amphetamines Screen U Benzodiazepines Scrn Urine Cocaine Screen U Cannabinoids Screen Serum Alcohol Hepatitis A IgM Ab Hep Bs Antigen Hep B Core IgM Ab Hep C IgG Ab 07/18/18 07/18/18 07/18/18 17:21 17:21 17:21 CBC w Diff Slide review pending WBC 20.0 H RBC 3.85 L Hgb 11.7 Hct 37.0 MCV 96.1 MCH 30.5 MCHC 31.7 L RDW 16.3 Plt Count 320 MPV 7.6 Neut % (Auto) 36.6 Lymph % (Auto) 56.8 H Henderson % (Auto) 5.3 Eos % (Auto) 0.6 Baso % (Auto) 0.7 Neut # (Auto) 7.3 Lymph # (Auto) 11.3 H [place] # (Auto) 1.1 H Eos # (Auto) 0.1 Baso # (Auto) 0.1 WBC Differential Manual diff final Seg Neuts % (Manual) 28 Band Neuts % (Manual) 4 Lymphocytes % (Manual) 58 H Monocytes % (Manual) 10 H Abs Neuts (Manual) 6.4 Nucleated RBCs/100 WBC 1 H Differential Comment . Platelet Estimate Normal Platelet Morphology Normal RBC Morphology Normal PT 10.7 INR 1.1 APTT 29.6 Puncture Site Patient Temperature O2 Saturation ABG pH ABG pCO2 ABG pO2 ABG HCO3 ABG O2 Content ABG Base Excess ABG Methemoglobin Nixon Test Hemoglobin Carboxyhemoglobin O2 Delivery Device Vent Setting Inspired O2 Critical Value Sodium 145 Potassium 3.9 Chloride 105 Carbon Dioxide 20.8 L Anion Gap 19 H BUN 30 H Creatinine 1.70 H Estimated GFR 30 L POC Glucose Random Glucose 203 H Calcium 7.2 L* Prot Corrected Calcium 7.9 L Phosphorus Magnesium Total Bilirubin 0.2 AST 634 H ALT 392 H Alkaline Phosphatase 89 Ammonia Total Creatine Kinase CK-MB (CK-2) CK-MB (CK-2) % Troponin I 0.08 H Total Protein 5.8 L Albumin 2.3 L Urine Color Urine Clarity Urine pH Ur Specific [place] Urine Protein Urine Glucose (UA) Urine Ketones Urine Occult Blood Urine Nitrate Urine Bilirubin Urine Urobilinogen Ur Leukocyte Esterase Urine RBC Urine WBC Urine WBC Clumps Ur Squamous Epith Cells Urine Bacteria Micro UA Comment Ur Microscopic Review Urine Culture Comments Nasal Screen MRSA (PCR) Urine Opiates Screen Ur Barbiturates Screen Phenytoin Ur Amphetamines Screen U Benzodiazepines Scrn Urine Cocaine Screen U Cannabinoids Screen Serum Alcohol 157 H Hepatitis A IgM Ab Hep Bs Antigen Hep B Core IgM Ab Hep C IgG Ab 07/18/18 07/18/18 07/18/18 17:53 17:53 21:23 CBC w Diff WBC RBC Hgb Hct MCV MCH MCHC RDW Plt Count MPV Neut % (Auto) Lymph % (Auto) [place] % (Auto) Eos % (Auto) Baso % (Auto) Neut # (Auto) Lymph # (Auto) [place] # (Auto) Eos # (Auto) Baso # (Auto) WBC Differential Seg Neuts % (Manual) Band Neuts % (Manual) Lymphocytes % (Manual) Monocytes % (Manual) Abs Neuts (Manual) Nucleated RBCs/100 WBC Differential Comment Platelet Estimate Platelet Morphology RBC Morphology PT INR APTT Puncture Site Patient Temperature O2 Saturation ABG pH ABG pCO2 ABG pO2 ABG HCO3 ABG O2 Content ABG Base Excess ABG Methemoglobin Nixon Test Hemoglobin Carboxyhemoglobin O2 Delivery Device Vent Setting Inspired O2 Critical Value Sodium Potassium Chloride Carbon Dioxide Anion Gap BUN Creatinine Estimated GFR POC Glucose Random Glucose Calcium Prot Corrected Calcium Phosphorus Magnesium Total Bilirubin AST ALT Alkaline Phosphatase Ammonia Total Creatine Kinase CK-MB (CK-2) CK-MB (CK-2) % Troponin I Total Protein Albumin Urine Color Yellow Urine Clarity Slightly cloudy Urine pH 5.5 Ur Specific [place] 1.025 Urine Protein Negative Urine Glucose (UA) Negative Urine Ketones Negative Urine Occult Blood Small H Urine Nitrate Positive H Urine Bilirubin Negative Urine Urobilinogen 0.2 Ur Leukocyte Esterase Small H Urine RBC 4-15 H Urine WBC 21-50 H Urine WBC Clumps Few H Ur Squamous Epith Cells 0-5 Urine Bacteria Many H Micro UA Comment Cath-culture ind Ur Microscopic Review Microscopic reviewed Urine Culture Comments Cath-cult indicated Nasal Screen MRSA (PCR) Not detected Urine Opiates Screen Neg Ur Barbiturates Screen Neg Phenytoin Ur Amphetamines Screen Neg U Benzodiazepines Scrn Pos H Urine Cocaine Screen Neg U Cannabinoids Screen Neg Serum Alcohol Hepatitis A IgM Ab Hep Bs Antigen Hep B Core IgM Ab Hep C IgG Ab 07/18/18 07/19/18 07/19/18 22:54 00:18 00:18 CBC w Diff WBC RBC Hgb 13.8 D Hct MCV MCH MCHC RDW Plt Count MPV Neut % (Auto) Lymph % (Auto) [place] % (Auto) Eos % (Auto) Baso % (Auto) Neut # (Auto) Lymph # (Auto) [place] # (Auto) Eos # (Auto) Baso # (Auto) WBC Differential Seg Neuts % (Manual) Band Neuts % (Manual) Lymphocytes % (Manual) Monocytes % (Manual) Abs Neuts (Manual) Nucleated RBCs/100 WBC Differential Comment Platelet Estimate Platelet Morphology RBC Morphology PT INR APTT Puncture Site Right radial Patient Temperature 98.6 O2 Saturation 98 ABG pH 7.35 L ABG pCO2 31 L ABG pO2 587 H ABG HCO3 17 L ABG O2 Content 20.0 ABG Base Excess -7.8 L ABG Methemoglobin 1.6 Nixon Test Present Hemoglobin 13.5 Carboxyhemoglobin 0.2 O2 Delivery Device Ventilator Vent Setting [id number] Inspired O2 100 Critical Value No Sodium Potassium Chloride Carbon Dioxide Anion Gap BUN Creatinine Estimated GFR POC Glucose Random Glucose Calcium Prot Corrected Calcium Phosphorus Magnesium Total Bilirubin AST ALT Alkaline Phosphatase Ammonia Total Creatine Kinase CK-MB (CK-2) CK-MB (CK-2) % Troponin I 0.64 H* D Total Protein Albumin Urine Color Urine Clarity Urine pH Ur Specific [place] Urine Protein Urine Glucose (UA) Urine Ketones Urine Occult Blood Urine Nitrate Urine Bilirubin Urine Urobilinogen Ur Leukocyte Esterase Urine RBC Urine WBC Urine WBC Clumps Ur Squamous Epith Cells Urine Bacteria Micro UA Comment Ur Microscopic Review Urine Culture Comments Nasal Screen MRSA (PCR) Urine Opiates Screen Ur Barbiturates Screen Phenytoin Ur Amphetamines Screen U Benzodiazepines Scrn Urine Cocaine Screen U Cannabinoids Screen Serum Alcohol Hepatitis A IgM Ab Hep Bs Antigen Hep B Core IgM Ab Hep C IgG Ab 07/19/18 07/19/18 07/19/18 03:28 03:28 11:54 CBC w Diff WBC 9.6 D RBC 4.18 Hgb 13.3 Hct 39.0 MCV 93.2 MCH 31.8 MCHC 34.1 RDW 17.2 Plt Count 275 MPV 7.8 Neut % (Auto) 88.9 H Lymph % (Auto) 5.3 L [place] % (Auto) 5.7 Eos % (Auto) 0.0 Baso % (Auto) 0.1 Neut # (Auto) 8.6 H Lymph # (Auto) 0.5 L [place] # (Auto) 0.5 Eos # (Auto) 0.0 Baso # (Auto) 0.0 WBC Differential . Seg Neuts % (Manual) Band Neuts % (Manual) Lymphocytes % (Manual) Monocytes % (Manual) Abs Neuts (Manual) Nucleated RBCs/100 WBC Differential Comment Auto diff final Platelet Estimate Platelet Morphology RBC Morphology PT INR APTT Puncture Site Patient Temperature O2 Saturation ABG pH ABG pCO2 ABG pO2 ABG HCO3 ABG O2 Content ABG Base Excess ABG Methemoglobin Nixon Test Hemoglobin Carboxyhemoglobin O2 Delivery Device Vent Setting Inspired O2 Critical Value Sodium 146 H Potassium 4.4 Chloride 108 H Carbon Dioxide 24.0 Anion Gap 14 BUN 36 H Creatinine 1.82 H Estimated GFR POC Glucose 232 H Random Glucose 214 H Calcium 7.6 L Prot Corrected Calcium Phosphorus 4.9 Magnesium 1.4 L Total Bilirubin 0.4 AST 1169 H ALT 538 H Alkaline Phosphatase 107 Ammonia Total Creatine Kinase CK-MB (CK-2) CK-MB (CK-2) % Troponin I Total Protein 6.7 D Albumin 2.8 L Urine Color Urine Clarity Urine pH Ur Specific [place] Urine Protein Urine Glucose (UA) Urine Ketones Urine Occult Blood Urine Nitrate Urine Bilirubin Urine Urobilinogen Ur Leukocyte Esterase Urine RBC Urine WBC Urine WBC Clumps Ur Squamous Epith Cells Urine Bacteria Micro UA Comment Ur Microscopic Review Urine Culture Comments Nasal Screen MRSA (PCR) Urine Opiates Screen Ur Barbiturates Screen Phenytoin 10.8 Ur Amphetamines Screen U Benzodiazepines Scrn Urine Cocaine Screen U Cannabinoids Screen Serum Alcohol Hepatitis A IgM Ab Hep Bs Antigen Hep B Core IgM Ab Hep C IgG Ab 07/19/18 07/19/18 07/20/18 17:49 20:45 00:09 CBC w Diff WBC RBC Hgb Hct MCV MCH MCHC RDW Plt Count MPV Neut % (Auto) Lymph % (Auto) [place] % (Auto) Eos % (Auto) Baso % (Auto) Neut # (Auto) Lymph # (Auto) [place] # (Auto) Eos # (Auto) Baso # (Auto) WBC Differential Seg Neuts % (Manual) Band Neuts % (Manual) Lymphocytes % (Manual) Monocytes % (Manual) Abs Neuts (Manual) Nucleated RBCs/100 WBC Differential Comment Platelet Estimate Platelet Morphology RBC Morphology PT INR APTT Puncture Site Patient Temperature O2 Saturation ABG pH ABG pCO2 ABG pO2 ABG HCO3 ABG O2 Content ABG Base Excess ABG Methemoglobin Nixon Test Hemoglobin Carboxyhemoglobin O2 Delivery Device Vent Setting Inspired O2 Critical Value Sodium Potassium Chloride Carbon Dioxide Anion Gap BUN Creatinine Estimated GFR POC Glucose 224 H 200 H 162 H Random Glucose Calcium Prot Corrected Calcium Phosphorus Magnesium Total Bilirubin AST ALT Alkaline Phosphatase Ammonia Total Creatine Kinase CK-MB (CK-2) CK-MB (CK-2) % Troponin I Total Protein Albumin Urine Color Urine Clarity Urine pH Ur Specific [place] Urine Protein Urine Glucose (UA) Urine Ketones Urine Occult Blood Urine Nitrate Urine Bilirubin Urine Urobilinogen Ur Leukocyte Esterase Urine RBC Urine WBC Urine WBC Clumps Ur Squamous Epith Cells Urine Bacteria Micro UA Comment Ur Microscopic Review Urine Culture Comments Nasal Screen MRSA (PCR) Urine Opiates Screen Ur Barbiturates Screen Phenytoin Ur Amphetamines Screen U Benzodiazepines Scrn Urine Cocaine Screen U Cannabinoids Screen Serum Alcohol Hepatitis A IgM Ab Hep Bs Antigen Hep B Core IgM Ab Hep C IgG Ab 07/20/18 07/20/18 07/20/18 04:08 05:20 05:20 CBC w Diff WBC 12.3 H RBC 4.38 Hgb 14.1 Hct 39.8 MCV 90.7 MCH 32.1 MCHC 35.4 RDW 17.7 H Plt Count 279 MPV 7.8 Neut % (Auto) 85.7 H Lymph % (Auto) 7.9 L [place] % (Auto) 6.2 Eos % (Auto) 0.0 Baso % (Auto) 0.2 Neut # (Auto) 10.6 H Lymph # (Auto) 1.0 [place] # (Auto) 0.8 Eos # (Auto) 0.0 Baso # (Auto) 0.0 WBC Differential . Seg Neuts % (Manual) Band Neuts % (Manual) Lymphocytes % (Manual) Monocytes % (Manual) Abs Neuts (Manual) Nucleated RBCs/100 WBC Differential Comment Auto diff final Platelet Estimate Platelet Morphology RBC Morphology PT INR APTT Puncture Site Patient Temperature O2 Saturation ABG pH ABG pCO2 ABG pO2 ABG HCO3 ABG O2 Content ABG Base Excess ABG Methemoglobin Nixon Test Hemoglobin Carboxyhemoglobin O2 Delivery Device Vent Setting Inspired O2 Critical Value Sodium Potassium Chloride Carbon Dioxide Anion Gap BUN Creatinine Estimated GFR POC Glucose 163 H Random Glucose Calcium Prot Corrected Calcium Phosphorus Magnesium Total Bilirubin AST ALT Alkaline Phosphatase Ammonia 15 Total Creatine Kinase CK-MB (CK-2) CK-MB (CK-2) % Troponin I Total Protein Albumin Urine Color Urine Clarity Urine pH Ur Specific [place] Urine Protein Urine Glucose (UA) Urine Ketones Urine Occult Blood Urine Nitrate Urine Bilirubin Urine Urobilinogen Ur Leukocyte Esterase Urine RBC Urine WBC Urine WBC Clumps Ur Squamous Epith Cells Urine Bacteria Micro UA Comment Ur Microscopic Review Urine Culture Comments Nasal Screen MRSA (PCR) Urine Opiates Screen Ur Barbiturates Screen Phenytoin Ur Amphetamines Screen U Benzodiazepines Scrn Urine Cocaine Screen U Cannabinoids Screen Serum Alcohol Hepatitis A IgM Ab Hep Bs Antigen Hep B Core IgM Ab Hep C IgG Ab 07/20/18 07/20/18 07/20/18 05:20 08:02 11:32 CBC w Diff WBC RBC Hgb Hct MCV MCH MCHC RDW Plt Count MPV Neut % (Auto) Lymph % (Auto) [place] % (Auto) Eos % (Auto) Baso % (Auto) Neut # (Auto) Lymph # (Auto) [place] # (Auto) Eos # (Auto) Baso # (Auto) WBC Differential Seg Neuts % (Manual) Band Neuts % (Manual) Lymphocytes % (Manual) Monocytes % (Manual) Abs Neuts (Manual) Nucleated RBCs/100 WBC Differential Comment Platelet Estimate Platelet Morphology RBC Morphology PT INR APTT Puncture Site Patient Temperature O2 Saturation ABG pH ABG pCO2 ABG pO2 ABG HCO3 ABG O2 Content ABG Base Excess ABG Methemoglobin Nixon Test Hemoglobin Carboxyhemoglobin O2 Delivery Device Vent Setting Inspired O2 Critical Value Sodium 140 Potassium 3.5 D Chloride 105 Carbon Dioxide 23.5 Anion Gap 12 BUN 29 H Creatinine 1.41 H Estimated GFR 37 L POC Glucose 194 H Random Glucose 177 H Calcium 7.6 L Prot Corrected Calcium Phosphorus 2.7 D Magnesium 1.3 L Total Bilirubin 0.5 AST 359 H ALT 423 H Alkaline Phosphatase 105 Ammonia Total Creatine Kinase CK-MB (CK-2) CK-MB (CK-2) % Troponin I Total Protein 7.2 Albumin 2.7 L Urine Color Urine Clarity Urine pH Ur Specific [place] Urine Protein Urine Glucose (UA) Urine Ketones Urine Occult Blood Urine Nitrate Urine Bilirubin Urine Urobilinogen Ur Leukocyte Esterase Urine RBC Urine WBC Urine WBC Clumps Ur Squamous Epith Cells Urine Bacteria Micro UA Comment Ur Microscopic Review Urine Culture Comments Nasal Screen MRSA (PCR) Urine Opiates Screen Ur Barbiturates Screen Phenytoin Ur Amphetamines Screen U Benzodiazepines Scrn Urine Cocaine Screen U Cannabinoids Screen Serum Alcohol Hepatitis A IgM Ab Nonreactive Hep Bs Antigen Nonreactive Hep B Core IgM Ab Nonreactive Hep C IgG Ab Reactive H 07/20/18 16:54 CBC w Diff WBC RBC Hgb Hct MCV MCH MCHC RDW Plt Count MPV Neut % (Auto) Lymph % (Auto) [place] % (Auto) Eos % (Auto) Baso % (Auto) Neut # (Auto) Lymph # (Auto) [place] # (Auto) Eos # (Auto) Baso # (Auto) WBC Differential Seg Neuts % (Manual) Band Neuts % (Manual) Lymphocytes % (Manual) Monocytes % (Manual) Abs Neuts (Manual) Nucleated RBCs/100 WBC Differential Comment Platelet Estimate Platelet Morphology RBC Morphology PT INR APTT Puncture Site Patient Temperature O2 Saturation ABG pH ABG pCO2 ABG pO2 ABG HCO3 ABG O2 Content ABG Base Excess ABG Methemoglobin Nixon Test Hemoglobin Carboxyhemoglobin O2 Delivery Device Vent Setting Inspired O2 Critical Value Sodium Potassium Chloride Carbon Dioxide Anion Gap BUN Creatinine Estimated GFR POC Glucose 150 H Random Glucose Calcium Prot Corrected Calcium Phosphorus Magnesium Total Bilirubin AST ALT Alkaline Phosphatase Ammonia Total Creatine Kinase CK-MB (CK-2) CK-MB (CK-2) % Troponin I Total Protein Albumin Urine Color Urine Clarity Urine pH Ur Specific [place] Urine Protein Urine Glucose (UA) Urine Ketones Urine Occult Blood Urine Nitrate Urine Bilirubin Urine Urobilinogen Ur Leukocyte Esterase Urine RBC Urine WBC Urine WBC Clumps Ur Squamous Epith Cells Urine Bacteria Micro UA Comment Ur Microscopic Review Urine Culture Comments Nasal Screen MRSA (PCR) Urine Opiates Screen Ur Barbiturates Screen Phenytoin Ur Amphetamines Screen U Benzodiazepines Scrn Urine Cocaine Screen U Cannabinoids Screen Serum Alcohol Hepatitis A IgM Ab Hep Bs Antigen Hep B Core IgM Ab Hep C IgG Ab Result Diagrams: 07/20/18 05:20 07/20/18 05:20 Microbiology: Microbiology 07/19/18 04:26 Gram Stain - Final Sputum - Endotracheal Sputum Culture - Preliminary Moderate growth normal respiratory lakesha at 24 hours 07/18/18 17:05 Aerobic Blood Culture - Preliminary Blood - Peripheral No growth in 2 days Anaerobic Blood Culture - Preliminary No growth in 2 days 07/18/18 17:00 Aerobic Blood Culture - Preliminary Blood - Peripheral No growth in 2 days Anaerobic Blood Culture - Preliminary No growth in 2 days 07/18/18 17:53 Urine Culture - Final Clean Catch Urine Escherichia coli Imaging: Chest CTA 07/18/18 17:48 CONCLUSION: 1. No evidence of pulmonary embolism. No filling defects are identified. 2. 2 fractures on the right are probably acute. There are number of other deformed ribs anteriorly on the left which are more likely chronic. Head CT 07/18/18 17:48 CONCLUSION: 1. Negative CT Head non contrast. . Abdomen Ultrasound 07/19/18 00:00 CONCLUSION: 1. Apparent small amount of sludge within the gallbladder with no definite stones. 2. The common bile duct appears mildly prominent at 8 mm. 3. The kidneys are small in size with no evidence of obstruction or focal lesion. Chest X-Ray 07/19/18 02:27 CONCLUSION: 1. Right subclavian central venous catheter extends cephalad. 2. Endotracheal tube and nasogastric tube are appropriately positioned. 3. Mild bibasilar patchy infiltrate. Procedures: * 07/18/18 - asystolic arrest x 2, intubated, central line placed. Assessment and Plan - Disease Oriented Problem List (1) Cardiac arrest (2) Respiratory failure with hypoxia (3) HTN (hypertension) (4) Shock (5) Anoxic encephalopathy (6) UTI (urinary tract infection) (7) Coffee ground vomiting (8) Alcohol dependence (9) WM (acute kidney injury) (10) Hyperglycemia (11) Multiple rib fractures - Symptom Scale (1) Pain 0-10 Scale: Unable to quantify (2) Dyspnea 0-10 Scale: Unable to quantify Pertinent Non-Medical Issues: Psychosocial: 3 years ago. Has a recent "boyfriend" who has been staying with her. Has 1 adult daughter and 2 granddaughters, live local. Spiritual: None. 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 Legal:Patient is not capacitated to make her own health care decisions, uncertain if she will regain capacity. Single. Has 1 daughter. No written advance directives. According to [place] statutes, health care proxy decision making falls to her daughter. Ethical issues impacting care: None. Important Contacts: * Evelia Lopez, dtr/ hcp: [phone] Prognosis: Discussed with Dr. Ag and Dr. Sparrow, plan to hold sedation to better evaluate neurologic status. EEG pending. If no improvement in neurologic status when off sedation, prognosis would be poor for meaningful recovery. Code Status: Full Code Plan: * Patient is not capacitated to make her own health care decisions, uncertain if she will regain capacity. Single. Has 1 daughter. No written advance directives. According to [place] statutes, health care proxy decision making falls to her daughter. * FULL CODE - daughter considering and knows to notify team if she decides for alternate code status. * Goals remain aggressive at this time. Will meet again 07/21/18 to provide update and further clarify goals. * SYMPTOMS: Pain and dyspnea: currently sedated on mech vent, no obvious signs of pain or SOB. Will monitor closely when off sedation. * Palliative care will continue to follow to assist with symptom management and clarification of medical treatment goals. Attestation Attestation: To help prompt me to consider important information that might be impacting today's encounter and assessment, information from prior notes written by myself or my colleagues may have been "brought forward" into today's note. My signature on this note, however, is an attestation that I personally performed the exam, history, and/or decision-making noted today, and, unless otherwise indicated, the interactions with patient, family, and staff as well as the review of records all occurred today. I also attest that the listed assessment and stated plan reflect my best clinical judgment today based on the combination of historical information, prior notes, and today's exam/ interactions. When time spent is documented, it refers only to time spent today by the signer, or if indicated, combined time spent today by collaborating physician/nurse practitioner.
--- NOTE | 2018-07-20 19:26 | ECHRPT ---
Indication: Syncope CONCLUSIONS The left ventricular systolic function is normal with an estimated ejection fraction in the range of 55-60%. Mild concentric left ventricular hypertrophy. Trace mitral valve regurgitation. There is mild tricuspid valve regurgitation. BP: / HR: Rhythm: MEASUREMENTS (Male / Female) Normal Values Technical Quality: 2D ECHO LV Diastolic Diameter PLAX 3.8 cm 4.2 - 5.9 / 3.9 - 5.3 cm LV Systolic Diameter PLAX 2.9 cm IVS Diastolic Thickness 1.2 cm 0.6 - 1.0 / 0.6 - 0.9 cm LVPW Diastolic Thickness 1.3 cm 0.6 - 1.0 / 0.6 - 0.9 cm LV Relative Wall Thickness 0.7 RV Internal Dim ED PLAX 3.0 cm LVOT Diameter 1.8 cm Aortic Root Diameter 2.6 cm LA Systolic Diameter LX 3.2 cm 3.0 - 4.0 / 2.7 - 3.8 cm LV Ejection Fraction MOD BP 53.9 % >= 55 % LV Ejection Fraction MOD 4C 53.0 % LV Ejection Fraction 4C AL 55.4 % LV Ejection Fraction MOD 2C 51.4 % LV Ejection Fraction 2C AL 55.0 % M-MODE Aortic Root Diameter MM 2.9 cm LA Systolic Diameter MM 4.0 cm LA Ao Ratio MM 1.4 AV Cusp Separation MM 1.5 cm DOPPLER AV Peak Velocity 125.0 cm/s AV Peak Gradient 6.3 mmHg LVOT Peak Velocity 88.8 cm/s LVOT Peak Gradient 3.2 mmHg AV Area Cont Eq pk 1.8 cm Mitral E Point Velocity 51.8 cm/s Mitral A Point Velocity 51.8 cm/s Mitral E to A Ratio 1.0 LV E' Lateral Velocity 4.8 cm/s Mitral E to LV E' Lateral Ratio 10.8 LV E' Septal Velocity 3.7 cm/s Mitral E to LV E' Septal Ratio 14.0 TR Peak Velocity 242.0 cm/s TR Peak Gradient 23.4 mmHg Right Atrial Pressure 10.0 mmHg Pulmonary Artery Systolic Pressu 33.4 mmHg Right Ventricular Systolic Press 33.4 mmHg PV Peak Velocity 97.7 cm/s PV Peak Gradient 3.8 mmHg FINDINGS LEFT VENTRICLE Normal left ventricular size. Mild concentric left ventricular hypertrophy. The left ventricular systolic function is normal with an estimated ejection fraction in the range of 55-60%. RIGHT VENTRICLE Grossly normal LEFT ATRIUM The left atrial size is upper limits of normal. RIGHT ATRIUM The right atrial size is normal. ATRIAL SEPTUM Normal atrial septal thickness AORTA The aortic root and proximal ascending aorta are normal in size on limited imaging. MITRAL VALVE Grossly normal Trace mitral valve regurgitation. No mitral valve stenosis. AORTIC VALVE Probable trileaflet aortic valve. No aortic valve stenosis or regurgitation. TRICUSPID VALVE The estimated pulmonary arterial pressure is 33 mmHg. There is mild tricuspid valve regurgitation. Structurally normal tricuspid valve. PULMONARY VALVE No pulmonary valve regurgitation or stenosis. VESSELS The inferior vena cava is normal in size. Cyrus Cordero DO (Electronically Signed) Final Date:20 July 2018 19:25
[2018-07-21] MEDS: Insulin NovoLIN Regular Correctional Sugar Inj SQ SCH ×6 (01:14→22:00)
[2018-07-21] MEDS: Oral Hygiene Kit OROPHARYNG SCH ×4 (01:14→15:09)
[2018-07-21] MEDS: Piperacil/Tazo 2.25 GM Premix 50 ML IV.SIG SCH ×4 (01:15→17:25)
[2018-07-21] MEDS: Pantoprazole Inj 80 MG in Sodium Chlor 0.9% Inj 100 ML IV.CONT SCH ×4 (01:15→20:17)
[2018-07-21] MEDS: Chlorhexidine Gluconate 2% 1 Pack (2 Cloths) TOPICAL SCH (03:28)
[2018-07-21] MEDS: Labetalol HCl Inj 100 MG/20 ML Vial IV.PUSH PRN (03:28)
[2018-07-21 05:16] LABS: Baso % (Auto) 0.1 % (0.0-2.0); Hematocrit 39.5 % (35.0-46.0); Hemoglobin 13.6 gm/dL (11.6-15.3); Lymph # (Auto) 0.8 th/mm3 (1.0-4.8); Mean Corpuscular HGB Conc 34.4 % (32.0-36.0); Mean Corpuscular Hemoglobin 32.1 pg (27.0-34.0); Mean Corpuscular Volume 93.2 fL (80.0-100.0); Mean Platelet Volume 7.9 fL (7.0-11.0); Mono # (Auto) 0.6 th/mm3 (0.0-0.9); Mono % (Auto) 6.3 % (0.0-8.0); Neut # (Auto) 7.9 th/mm3 (1.8-7.7); Neut % (Auto) 84.6 % (16.0-70.0); Platelet Count 235 th/mm3 (150-450); Red Blood Count 4.24 mil/mm3 (4.00-5.30); Red Cell Distribution Width 17.7 % (11.6-17.2); White Blood Count 9.3 th/mm3 (4.0-11.0)
[2018-07-21 05:35] LABS: Albumin 2.5 g/dL (3.4-5.0); Anion Gap 12 meq/L (5-15); Blood Urea Nitrogen 31 mg/dL (7-18); Calcium 7.5 mg/dL (8.5-10.1); Carbon Dioxide 22.4 meq/L (21.0-32.0); Chloride 109 meq/L (98-107); Glomerular Filtration Rate 38 mL/min (>89); Glucose,Random 118 mg/dL (74-106); Magnesium 2.2 mg/dL (1.5-2.5); Potassium 3.4 meq/L (3.5-5.1); Sodium 143 meq/L (136-145)
[2018-07-21 05:36] LABS: Alanine Aminotransferase 265 U/L (10-53); Aspartate Aminotransferase 202 U/L (15-37); Phosphorus 2.9 mg/dL (2.5-4.9)
[2018-07-21 05:38] LABS: Alkaline Phosphatase 90 U/L (45-117); Total Protein 6.6 g/dL (6.4-8.2)
[2018-07-21] MEDS: Sod Chloride 0.9% Inj 1,000 ML IV.CONT SCH ×2 (06:13→17:25)
[2018-07-21] MEDS: Fosphenytoin Inj 100 MGPE in Sodium Chlor 0.9% Inj 50 ML IV.SIG SCH ×3 (06:13→22:00)
[2018-07-21] MEDS: Metoprolol Tartrate 25 MG Tablet PO SCH ×2 (08:14→20:19)
[2018-07-21] MEDS: Folic Acid 1 MG Tablet PO SCH (08:14)
[2018-07-21] MEDS: Chlorhexidine 0.12% Oral Kit 15 ML UDC OROPHARYNG SCH ×2 (08:14→20:19)
[2018-07-21] MEDS: Thiamine Inj 100 MG in Sodium Chlor 0.9% Inj 100 ML IV.SIG SCH (08:15)
[2018-07-21] MEDS: Famotidine PF Inj 20 MG/2 ML Vial IV.PUSH SCH (08:15)
[2018-07-21] MEDS: rifAXIMin 550 MG Tablet NG/OG SCH ×2 (08:15→20:19)
[2018-07-21] MEDS: Senna/Docusate Sodium 8.6/50 MG Tablet PO SCH ×2 (08:15→20:19)
[2018-07-21] MEDS ORDERED: Glycerin Adult 2 GM Supp RECTAL ONE (08:41)
[2018-07-21] MEDS ORDERED: Mineral Oil 55% Emulsion 480 ML PO ONE (09:00)
[2018-07-21] MEDS: Artificial Tears Opth Drops 15 ML Bottle EACH EYE SCH ×2 (09:47→17:26)
[2018-07-21] MEDS: Polyethylene Glycol 3350 17 GM Packet PO SCH ×2 (09:47→20:19)
[2018-07-21] MEDS: hydrALAZINE HCl Inj 20 MG/ML Vial IV.PUSH PRN (10:27)
[2018-07-21] MEDS ORDERED: Mineral Oil Liq 30 ML UDC PO ONE (10:30)
[2018-07-21] MEDS ORDERED: hydrALAZINE HCl Inj 20 MG/ML Vial IV.PUSH PRN (14:14)
--- NOTE | 2018-07-21 14:15 | P.PNCC ---
Subjective Subjective Remarks/Hospital Course: 73-year-old female with past medical history of hypertension, GERD, hypothyroidism, alcohol dependence, chronic pain on methadone, depression who presented to [facility] following asystolic cardiac arrest. She had last been seen normal about 2-1/2 hours prior. Her boyfriend came home and found her unresponsive. When [facility] arrived she was in asystole. She had a large amount of black emesis at the scene. CPR was initiated and she was given epinephrine x2 and bicarb and had ROSC. Combitube was placed. Had a second cardiac arrest. She was intubated in the emergency department. She was initially hypotensive and was started on Levophed. CT brain was negative for acute abnormality. CT chest demonstrates multiple right-sided rib fractures. There is no pulmonary embolism. EKG has no ST elevation. Troponin 0 0.11. Her daughter states she was having a cough and spitting up some phlegm yesterday. She drinks a bottle of vodka daily. She has been depressed since her 3 years ago. Her daughter is her only child. She has no advanced directive. 07/19 Patient is sedated with Diprivan and intubated. Unresponsive. 07/20 Patient is off sedation unresponsive. On Protonix drip. Afebrile. SUBJECTIVE: 07/21: Remains unresponsive. T-max 99.3 remains on pantoprazole drip. Hemodynamically stable. Hemoglobin stable. Objective Vital Signs / I&O: Vital Signs 07/20/18 15:00 07/20/18 15:44 07/20/18 16:00 Temperature 97.6 F Pulse Rate 77 77 Respiratory Rate 17 16 16 Blood Pressure 167/90 H Pulse Oximetry 100 99 07/20/18 20:00 07/20/18 21:31 07/20/18 21:35 Temperature 97.6 F Pulse Rate 75 77 Respiratory Rate 16 18 20 Blood Pressure 133/70 Pulse Oximetry 99 100 07/21/18 00:00 07/21/18 01:07 07/21/18 04:00 Temperature 97.5 F L 98.3 F Pulse Rate 69 76 Respiratory Rate 16 17 16 Blood Pressure 163/84 H 144/75 H Pulse Oximetry 99 100 99 07/21/18 04:34 07/21/18 08:00 07/21/18 08:30 Temperature 99.0 F Pulse Rate 77 79 79 Respiratory Rate 18 21 20 Blood Pressure 158/75 H Pulse Oximetry 100 98 07/21/18 09:14 07/21/18 10:00 07/21/18 10:22 Temperature 99.1 F 99.1 F 99.0 F Pulse Rate 78 75 76 Respiratory Rate 21 21 21 Blood Pressure 176/79 H 168/77 H Pulse Oximetry 100 100 100 07/21/18 10:30 07/21/18 10:45 07/21/18 11:00 Temperature 99.0 F 99.1 F 99.1 F Pulse Rate 77 81 81 Respiratory Rate 15 20 18 Blood Pressure 170/79 H 107/55 L 105/57 L Pulse Oximetry 99 99 99 07/21/18 11:15 07/21/18 11:30 07/21/18 11:45 Temperature 99.1 F 99.1 F 99.1 F Pulse Rate 81 80 81 Respiratory Rate 19 17 19 Blood Pressure 104/55 L 100/57 L 108/58 L Pulse Oximetry 99 99 99 07/21/18 12:00 07/21/18 12:29 Temperature 99.1 F Pulse Rate 81 Respiratory Rate 20 17 Blood Pressure 110/59 L Pulse Oximetry 99 99 Intake & Output 07/20/18 07/21/18 07/21/18 18:59 06:59 18:59 Intake Total 1553 / 1553 2284 / 2284 353 / 353 Output Total 800 / 800 225 / 225 Balance 753 / 753 2059 / 2059 353 / 353 Weight 76.5 kg Intake: IV 1553 / 1553 2254 / 2254 353 / 353 Protonix Inj 80 MG In NS Inj 200 / 200 100 / 100 100 / 100 100 ML @ 10 mls/hr IV.CONT Q10H SUNITA Rx#:[id number] NS Inj 1,000 ML @ 84 mls/hr IV. 1000 / 1000 1999 / 1999 CONT .[id number] SUNITA Rx#: [id number] Cerebyx Inj 100 MGPE In NS Inj 52 / 52 104 / 104 52 / 52 50 ML @ 208 mls/hr IV.SIG Q8HR SUNITA Rx#:[id number] Magnesium Sulfate Inj 2 GM In 100 / 100 NS Inj 96 ML @ 50 mls/hr IV.SIG UNSCH PRN Rx#:[id number] Zosyn 2.25 GM Premix 50 ML @ 100 / 100 50 / 50 100 / 100 100 mls/hr IV.SIG Q6H SUNITA Rx#: [id number] Thiamine Inj 100 MG In NS Inj 101 / 101 101 / 101 100 ML @ 100 mls/hr IV.SIG DAILY SUNITA Rx#:[id number] Water Bolus Amount 30 / 30 Output: Urine 800 / 800 200 / 200 Stool 0 / 0 Gastric Drainage Orogastric Tube Other: Date of Last Bowel Movement 07/19/18 07/19/18 07/19/18 Result Diagrams: 07/21/18 03:45 07/21/18 03:45 Other Results: Microbiology 07/19/18 04:26 Sputum - Endotracheal Gram Stain - Final 07/19/18 04:26 Sputum - Endotracheal Sputum Culture - Final Heavy growth normal respiratory lakesha 07/18/18 17:05 Blood - Peripheral Aerobic Blood Culture - Preliminary No growth in 3 days 07/18/18 17:05 Blood - Peripheral Anaerobic Blood Culture - Preliminary No growth in 3 days 07/18/18 17:00 Blood - Peripheral Aerobic Blood Culture - Preliminary No growth in 3 days 07/18/18 17:00 Blood - Peripheral Anaerobic Blood Culture - Preliminary No growth in 3 days 07/18/18 17:53 Clean Catch Urine Urine Culture - Final Escherichia coli Imaging: Chest CTA 07/18/18 17:48 CONCLUSION: 1. No evidence of pulmonary embolism. No filling defects are identified. 2. 2 fractures on the right are probably acute. There are number of other deformed ribs anteriorly on the left which are more likely chronic. Head CT 07/18/18 17:48 CONCLUSION: 1. Negative CT Head non contrast. . Abdomen Ultrasound 07/19/18 00:00 CONCLUSION: 1. Apparent small amount of sludge within the gallbladder with no definite stones. 2. The common bile duct appears mildly prominent at 8 mm. 3. The kidneys are small in size with no evidence of obstruction or focal lesion. Chest X-Ray 07/19/18 00:00 CONCLUSION: 1. Right subclavian central venous catheter has been pulled back. It continues to extend cephalad within the right internal jugular vein, tip slightly above the thoracic inlet. 2. Endotracheal tube and nasogastric tube appropriately positioned and unchanged. 3. Mild bibasilar airspace opacities not significantly changed. Chest X-Ray 07/19/18 02:27 CONCLUSION: 1. Right subclavian central venous catheter extends cephalad. 2. Endotracheal tube and nasogastric tube are appropriately positioned. 3. Mild bibasilar patchy infiltrate. Objective Remarks: GENERAL: Patient is 73 yo intubated unresponsive SKIN: Warm and dry. HEAD: Normocephalic. EYES: No scleral icterus. No injection or drainage. NECK: Supple, trachea midline. No JVD or lymphadenopathy. CARDIOVASCULAR: Regular rate and rhythm without murmurs, gallops, or rubs. RESPIRATORY: Breath sounds equal bilaterally. No accessory muscle use. GASTROINTESTINAL: Abdomen soft, non-tender, nondistended. MUSCULOSKELETAL: No cyanosis, or edema. Neuro: Intubated, unresponsive. No cough, gag reflex. Assessment and Plan - Assessment and Plan Plan: NEURO: Coma Anoxic encephalopathy Seizure Alcohol dependence Acute alcohol intoxication upon presentation Fosphenytoin load and 100 mg PE q8 hours. Dilantin level 10.8 07/19 Off sedation EEG: Diffuse slowing of background seen with diffuse cerebral dysfunction, possibly with an anoxia. No epileptiform features. CT brain no acute abnormality. Thiamine/multivitamin/folic acid supplementation. Neuro is following- Dr. Sparorw RESP: Acute hypoxic respiratory failure Multiple rib fractures PRVC. Ventilator bundle. Neuro status prevents extubation Continue with vent support keep sats >92% Bronchodilators, ICU vent bundle. CXR: Mild bibasilar patchy infiltrate CV: Asystolic cardiac arrest Hypotension postarrest (resolved) Hypertension Elevated troponin - likely demand ischemia following respiratory arrest Monitor HR and BP keep MAP>65mmHg Increase Lopressor 50mg BID for BP control. Monitor trop, for 2D echo to eval LV function GI: Coffee-ground output from OG tube Vomiting Diarrhea present on admission Cirrhosis Elevated LFT's...trending down Ischemic hepatitis versus acute alcoholic hepatitis Hyperammonemia NPO. OGT to LIWS On Protonix drip Consult GI if evidence of significant active bleeding. US liver: small amount of sludge within the gallbladder with no definite stones. The common bile duct appears mildly prominent at 8 mm. Check Hepatitis profile - neg. Rifaximin 550 mg p.o. twice daily and lactulose 30 cc 4 times daily. Recheck ammonia level in a.m. 07/22 FEN/RENAL: Hypokalemia Acute kidney injury- improving NS 84 mL/h. Johnston in place. Monitor intake and output. Monitor electrolytes and replace as indicated. Renal function is improving ID: E. coli UTI present on admission Follow-up blood urine and sputum culture. Pipracil/tazobactam 2.25 g IV every 6 hours HEME: Leukocytosis Monitor CBC. Transfuse as needed for Hgb < 7. ENDO: Acute hyperglycemia Monitor bedside glucose every 4 hours and administer low-dose insulin sliding scale as indicated. PROPH: SCDs for DVT prophylaxis. Pharmacologic DVT prophylaxis contraindicated due to GI bleeding. Pantoprazole as per above ACCESS: Right subclavian central venous line placed 07/19 and heading cephalad. Discontinued today while in 07/21 Palliative care is following Full code Critical care time 35 minutes exclusive of separately billable procedure
--- NOTE | 2018-07-21 15:57 | P.PNPAL ---
Reason for Visit Reason for visit: a. To assist with evaluation and management of symptoms including: encephalopathy, pain, dyspnea. b. To assist medical decision maker(s) with: better understanding of current medical conditions; weighing benefits/burdens of medical treatment options; making medical treatment decisions. Subjective Subjective/Interval History: Patient seen and examined in ICU. Daughter and friend at bedside. Patient has been off sedation for 48 hours. She remains unresponsive. She breathes over mechanical vent, no cough, no gag, no withdraw to pain, does not follow commands , eyes open not tracking, does not blink to threat. WBC 12.3. No evidence of neurologic recovery. Some twitching movements noted intermittently of chest. Urine culture + E. Coli. Creatinine stable at 1.37 today. Family/Friend Interactions: Spoke with daughter and friend at bedside. Medical update provided with daughters permission to speak in front of friend. Reviewed plan for possible EEG , again reminded of what this test shows (brain wave activity and seizure). Lengthy discussion about concern for anoxic brain injury and poor prognosis for meaningful recovery. Daughter is tearful, again stating "I just keep hoping she will just wake up, I keep hoping for a miracle." She continues to talk about DNR , but again is not yet ready to commit to a decision. She indicates all family and friends support DNR decision. She asks if I will be here all day. We talked about the possibility trach and peg decisions in no neuro improvement. Daughter states "I know she wouldn't want to live like a vegetable." I also briefly touched on possibility of progression to brain . Agreed to provide another update 07/22/18. Advance Directives Living Will: Never completed Health Care Surrogate: Never completed Durable Power of Design Drafter Chief: Never completed Health Care Surrogate Name and Number: Health care proxy, Evelia Lopez, daughter: [phone] Significant change in goals:: FULL CODE. Goals remain aggressive at this time, daughter is struggling with the thought of losing her mother. Objective Vital Signs: Vital Signs 07/20/18 15:44 07/20/18 16:00 07/20/18 20:00 Temperature 97.6 F 97.6 F Pulse Rate 77 75 Respiratory Rate 16 16 16 Blood Pressure 167/90 H 133/70 Pulse Oximetry 100 99 99 07/20/18 21:31 07/20/18 21:35 07/21/18 00:00 Temperature 97.5 F L Pulse Rate 77 69 Respiratory Rate 18 20 16 Blood Pressure 163/84 H Pulse Oximetry 100 99 07/21/18 01:07 07/21/18 04:00 07/21/18 04:34 Temperature 98.3 F Pulse Rate 76 77 Respiratory Rate 17 16 18 Blood Pressure 144/75 H Pulse Oximetry 100 99 100 07/21/18 08:00 07/21/18 08:30 07/21/18 09:14 Temperature 99.0 F 99.1 F Pulse Rate 79 79 78 Respiratory Rate 21 20 21 Blood Pressure 158/75 H Pulse Oximetry 98 100 07/21/18 10:00 07/21/18 10:22 07/21/18 10:30 Temperature 99.1 F 99.0 F 99.0 F Pulse Rate 75 76 77 Respiratory Rate 21 21 15 Blood Pressure 176/79 H 168/77 H 170/79 H Pulse Oximetry 100 100 99 07/21/18 10:45 07/21/18 11:00 07/21/18 11:15 Temperature 99.1 F 99.1 F 99.1 F Pulse Rate 81 81 81 Respiratory Rate 20 18 19 Blood Pressure 107/55 L 105/57 L 104/55 L Pulse Oximetry 99 99 99 07/21/18 11:30 07/21/18 11:45 07/21/18 12:00 Temperature 99.1 F 99.1 F 99.1 F Pulse Rate 80 81 81 Respiratory Rate 17 19 20 Blood Pressure 100/57 L 108/58 L 110/59 L Pulse Oximetry 99 99 99 07/21/18 12:29 Temperature Pulse Rate Respiratory Rate 17 Blood Pressure Pulse Oximetry 99 Intake & Output 07/20/18 07/21/18 07/21/18 18:59 06:59 18:59 Intake Total 1553 / 1553 2284 / 2284 353 / 353 Output Total 800 / 800 225 / 225 Balance 753 / 753 2058 / 2058 353 / 353 Weight 76.5 kg Intake: IV 1553 / 1553 2254 / 2254 353 / 353 Protonix Inj 80 MG In NS Inj 200 / 200 100 / 100 100 / 100 100 ML @ 10 mls/hr IV.CONT Q10H [facility] Rx#:[id number] NS Inj 1,000 ML @ 84 mls/hr IV. 1000 / 1000 2000 / 1999 CONT .[id number] [facility] Rx#: [id number] Cerebyx Inj 100 MGPE In NS Inj 52 / 52 104 / 104 52 / 52 50 ML @ 208 mls/hr IV.SIG Q8HR [facility] Rx#:[id number] Magnesium Sulfate Inj 2 GM In 100 / 100 NS Inj 96 ML @ 50 mls/hr IV.SIG UNSCH PRN Rx#:[id number] Zosyn 2.25 GM Premix 50 ML @ 100 / 100 50 / 50 100 / 100 100 mls/hr IV.SIG Q6H [facility] Rx#: [id number] Thiamine Inj 100 MG In NS Inj 101 / 101 101 / 101 100 ML @ 100 mls/hr IV.SIG DAILY [facility] Rx#:[id number] Water Bolus Amount Output: Urine 800 / 800 200 / 200 Stool 0 / 0 Gastric Drainage Orogastric Tube Other: Date of Last Bowel Movement 07/19/18 07/19/18 07/19/18 Physical Exam: CONSTITUTIONAL/GENERAL: This is a critically ill patient, on mech vent. TUBES/LINES/DRAINS: ETT, OG, right subclavian CL, PIV bilateral, bilateral soft wrist restraints, Johnston. SKIN: No jaundice, rashes, or lesions. Ecchymoses on upper extremities. No wounds seen anteriorly. Skin temperature appropriate. Not diaphoretic. EYES: scleral edema. ENT: Unable to assess hearing. nose without bleeding or purulent drainage. Throat difficult to visualize due to tubes. CARDIOVASCULAR: Regular rate and rhythm without murmurs. RESPIRATORY/CHEST: On mech vent. Breath sounds equal bilaterally. GASTROINTESTINAL: Abdomen soft, nondistended. GENITOURINARY: Without palpable bladder distension. Johnston catheter in place. MUSCULOSKELETAL: Extremities without clubbing, cyanosis, or edema. NEUROLOGICAL: Unresponsive. Not following commands, breathing over vent, no withdraw to pain. No cough or gag. Does not blink to threat. PSYCHIATRIC: Unresponsive off sedation. Diagnostic Tests Laboratory: Laboratory Results - last 72 hr 07/18/18 07/18/18 07/18/18 17:00 17:00 17:20 CBC w Diff WBC RBC Hgb Hct MCV MCH MCHC RDW Plt Count MPV Neut % (Auto) Lymph % (Auto) [place] % (Auto) Eos % (Auto) Baso % (Auto) Neut # (Auto) Lymph # (Auto) [place] # (Auto) Eos # (Auto) Baso # (Auto) WBC Differential Seg Neuts % (Manual) Band Neuts % (Manual) Lymphocytes % (Manual) Monocytes % (Manual) Abs Neuts (Manual) Nucleated RBCs/100 WBC Differential Comment Platelet Estimate Platelet Morphology RBC Morphology PT INR APTT Puncture Site Patient Temperature O2 Saturation ABG pH ABG pCO2 ABG pO2 ABG HCO3 ABG O2 Content ABG Base Excess ABG Methemoglobin Nixon Test Hemoglobin Carboxyhemoglobin O2 Delivery Device Vent Setting Inspired O2 Critical Value Sodium Potassium Chloride Carbon Dioxide Anion Gap BUN Creatinine Estimated GFR POC Glucose Random Glucose Calcium Prot Corrected Calcium Phosphorus Magnesium Total Bilirubin AST ALT Alkaline Phosphatase Ammonia 41 H Total Creatine Kinase 204 H CK-MB (CK-2) 3.3 CK-MB (CK-2) % 1.6 Troponin I 0.11 H Total Protein Albumin Urine Color Urine Clarity Urine pH Ur Specific [place] Urine Protein Urine Glucose (UA) Urine Ketones Urine Occult Blood Urine Nitrate Urine Bilirubin Urine Urobilinogen Ur Leukocyte Esterase Urine RBC Urine WBC Urine WBC Clumps Ur Squamous Epith Cells Urine Bacteria Micro UA Comment Ur Microscopic Review Urine Culture Comments Nasal Screen MRSA (PCR) Urine Opiates Screen Ur Barbiturates Screen Phenytoin Ur Amphetamines Screen U Benzodiazepines Scrn Urine Cocaine Screen U Cannabinoids Screen Serum Alcohol Hepatitis A IgM Ab Hep Bs Antigen Hep B Core IgM Ab Hep C IgG Ab 07/18/18 07/18/18 07/18/18 17:21 17:21 17:21 CBC w Diff Slide review pending WBC 20.0 H RBC 3.85 L Hgb 11.7 Hct 37.0 MCV 96.1 MCH 30.5 MCHC 31.7 L RDW 16.3 Plt Count 320 MPV 7.6 Neut % (Auto) 36.6 Lymph % (Auto) 56.8 H [place] % (Auto) 5.3 Eos % (Auto) 0.6 Baso % (Auto) 0.7 Neut # (Auto) 7.3 Lymph # (Auto) 11.3 H [place] # (Auto) 1.1 H Eos # (Auto) 0.1 Baso # (Auto) 0.1 WBC Differential Manual diff final Seg Neuts % (Manual) 28 Band Neuts % (Manual) 4 Lymphocytes % (Manual) 58 H Monocytes % (Manual) 10 H Abs Neuts (Manual) 6.4 Nucleated RBCs/100 WBC 1 H Differential Comment . Platelet Estimate Normal Platelet Morphology Normal RBC Morphology Normal PT 10.7 INR 1.1 APTT 29.6 Puncture Site Patient Temperature O2 Saturation ABG pH ABG pCO2 ABG pO2 ABG HCO3 ABG O2 Content ABG Base Excess ABG Methemoglobin Nixon Test Hemoglobin Carboxyhemoglobin O2 Delivery Device Vent Setting Inspired O2 Critical Value Sodium 145 Potassium 3.9 Chloride 105 Carbon Dioxide 20.8 L Anion Gap 19 H BUN 30 H Creatinine 1.70 H Estimated GFR 30 L POC Glucose Random Glucose 203 H Calcium 7.2 L* Prot Corrected Calcium 7.9 L Phosphorus Magnesium Total Bilirubin 0.2 AST 634 H ALT 392 H Alkaline Phosphatase 89 Ammonia Total Creatine Kinase CK-MB (CK-2) CK-MB (CK-2) % Troponin I 0.08 H Total Protein 5.8 L Albumin 2.3 L Urine Color Urine Clarity Urine pH Ur Specific [place] Urine Protein Urine Glucose (UA) Urine Ketones Urine Occult Blood Urine Nitrate Urine Bilirubin Urine Urobilinogen Ur Leukocyte Esterase Urine RBC Urine WBC Urine WBC Clumps Ur Squamous Epith Cells Urine Bacteria Micro UA Comment Ur Microscopic Review Urine Culture Comments Nasal Screen MRSA (PCR) Urine Opiates Screen Ur Barbiturates Screen Phenytoin Ur Amphetamines Screen U Benzodiazepines Scrn Urine Cocaine Screen U Cannabinoids Screen Serum Alcohol 157 H Hepatitis A IgM Ab Hep Bs Antigen Hep B Core IgM Ab Hep C IgG Ab 07/18/18 07/18/18 07/18/18 17:53 17:53 21:23 CBC w Diff WBC RBC Hgb Hct MCV MCH MCHC RDW Plt Count MPV Neut % (Auto) Lymph % (Auto) [place] % (Auto) Eos % (Auto) Baso % (Auto) Neut # (Auto) Lymph # (Auto) [place] # (Auto) Eos # (Auto) Baso # (Auto) WBC Differential Seg Neuts % (Manual) Band Neuts % (Manual) Lymphocytes % (Manual) Monocytes % (Manual) Abs Neuts (Manual) Nucleated RBCs/100 WBC Differential Comment Platelet Estimate Platelet Morphology RBC Morphology PT INR APTT Puncture Site Patient Temperature O2 Saturation ABG pH ABG pCO2 ABG pO2 ABG HCO3 ABG O2 Content ABG Base Excess ABG Methemoglobin Nixon Test Hemoglobin Carboxyhemoglobin O2 Delivery Device Vent Setting Inspired O2 Critical Value Sodium Potassium Chloride Carbon Dioxide Anion Gap BUN Creatinine Estimated GFR POC Glucose Random Glucose Calcium Prot Corrected Calcium Phosphorus Magnesium Total Bilirubin AST ALT Alkaline Phosphatase Ammonia Total Creatine Kinase CK-MB (CK-2) CK-MB (CK-2) % Troponin I Total Protein Albumin Urine Color Yellow Urine Clarity Slightly cloudy Urine pH 5.5 Ur Specific [place] 1.025 Urine Protein Negative Urine Glucose (UA) Negative Urine Ketones Negative Urine Occult Blood Small H Urine Nitrate Positive H Urine Bilirubin Negative Urine Urobilinogen 0.2 Ur Leukocyte Esterase Small H Urine RBC 4-15 H Urine WBC 21-50 H Urine WBC Clumps Few H Ur Squamous Epith Cells 0-5 Urine Bacteria Many H Micro UA Comment Cath-culture ind Ur Microscopic Review Microscopic reviewed Urine Culture Comments Cath-cult indicated Nasal Screen MRSA (PCR) Not detected Urine Opiates Screen Neg Ur Barbiturates Screen Neg Phenytoin Ur Amphetamines Screen Neg U Benzodiazepines Scrn Pos H Urine Cocaine Screen Neg U Cannabinoids Screen Neg Serum Alcohol Hepatitis A IgM Ab Hep Bs Antigen Hep B Core IgM Ab Hep C IgG Ab 07/18/18 07/19/18 07/19/18 22:54 00:18 00:18 CBC w Diff WBC RBC Hgb 13.8 D Hct MCV MCH MCHC RDW Plt Count MPV Neut % (Auto) Lymph % (Auto) [place] % (Auto) Eos % (Auto) Baso % (Auto) Neut # (Auto) Lymph # (Auto) [place] # (Auto) Eos # (Auto) Baso # (Auto) WBC Differential Seg Neuts % (Manual) Band Neuts % (Manual) Lymphocytes % (Manual) Monocytes % (Manual) Abs Neuts (Manual) Nucleated RBCs/100 WBC Differential Comment Platelet Estimate Platelet Morphology RBC Morphology PT INR APTT Puncture Site Right radial Patient Temperature 98.6 O2 Saturation 98 ABG pH 7.35 L ABG pCO2 31 L ABG pO2 587 H ABG HCO3 17 L ABG O2 Content 20.0 ABG Base Excess -7.8 L ABG Methemoglobin 1.6 Nixon Test Present Hemoglobin 13.5 Carboxyhemoglobin 0.2 O2 Delivery Device Ventilator Vent Setting [id number] Inspired O2 100 Critical Value No Sodium Potassium Chloride Carbon Dioxide Anion Gap BUN Creatinine Estimated GFR POC Glucose Random Glucose Calcium Prot Corrected Calcium Phosphorus Magnesium Total Bilirubin AST ALT Alkaline Phosphatase Ammonia Total Creatine Kinase CK-MB (CK-2) CK-MB (CK-2) % Troponin I 0.64 H* D Total Protein Albumin Urine Color Urine Clarity Urine pH Ur Specific [place] Urine Protein Urine Glucose (UA) Urine Ketones Urine Occult Blood Urine Nitrate Urine Bilirubin Urine Urobilinogen Ur Leukocyte Esterase Urine RBC Urine WBC Urine WBC Clumps Ur Squamous Epith Cells Urine Bacteria Micro UA Comment Ur Microscopic Review Urine Culture Comments Nasal Screen MRSA (PCR) Urine Opiates Screen Ur Barbiturates Screen Phenytoin Ur Amphetamines Screen U Benzodiazepines Scrn Urine Cocaine Screen U Cannabinoids Screen Serum Alcohol Hepatitis A IgM Ab Hep Bs Antigen Hep B Core IgM Ab Hep C IgG Ab 07/19/18 07/19/18 07/19/18 03:28 03:28 11:54 CBC w Diff WBC 9.6 D RBC 4.18 Hgb 13.3 Hct 39.0 MCV 93.2 MCH 31.8 MCHC 34.1 RDW 17.2 Plt Count 275 MPV 7.8 Neut % (Auto) 88.9 H Lymph % (Auto) 5.3 L [place] % (Auto) 5.7 Eos % (Auto) 0.0 Baso % (Auto) 0.1 Neut # (Auto) 8.6 H Lymph # (Auto) 0.5 L [place] # (Auto) 0.5 Eos # (Auto) 0.0 Baso # (Auto) 0.0 WBC Differential . Seg Neuts % (Manual) Band Neuts % (Manual) Lymphocytes % (Manual) Monocytes % (Manual) Abs Neuts (Manual) Nucleated RBCs/100 WBC Differential Comment Auto diff final Platelet Estimate Platelet Morphology RBC Morphology PT INR APTT Puncture Site Patient Temperature O2 Saturation ABG pH ABG pCO2 ABG pO2 ABG HCO3 ABG O2 Content ABG Base Excess ABG Methemoglobin Nixon Test Hemoglobin Carboxyhemoglobin O2 Delivery Device Vent Setting Inspired O2 Critical Value Sodium 146 H Potassium 4.4 Chloride 108 H Carbon Dioxide 24.0 Anion Gap 14 BUN 36 H Creatinine 1.82 H Estimated GFR POC Glucose 232 H Random Glucose 214 H Calcium 7.6 L Prot Corrected Calcium Phosphorus 4.9 Magnesium 1.4 L Total Bilirubin 0.4 AST 1169 H ALT 538 H Alkaline Phosphatase 107 Ammonia Total Creatine Kinase CK-MB (CK-2) CK-MB (CK-2) % Troponin I Total Protein 6.7 D Albumin 2.8 L Urine Color Urine Clarity Urine pH Ur Specific [place] Urine Protein Urine Glucose (UA) Urine Ketones Urine Occult Blood Urine Nitrate Urine Bilirubin Urine Urobilinogen Ur Leukocyte Esterase Urine RBC Urine WBC Urine WBC Clumps Ur Squamous Epith Cells Urine Bacteria Micro UA Comment Ur Microscopic Review Urine Culture Comments Nasal Screen MRSA (PCR) Urine Opiates Screen Ur Barbiturates Screen Phenytoin 10.8 Ur Amphetamines Screen U Benzodiazepines Scrn Urine Cocaine Screen U Cannabinoids Screen Serum Alcohol Hepatitis A IgM Ab Hep Bs Antigen Hep B Core IgM Ab Hep C IgG Ab 07/19/18 07/19/18 07/20/18 17:49 20:45 00:09 CBC w Diff WBC RBC Hgb Hct MCV MCH MCHC RDW Plt Count MPV Neut % (Auto) Lymph % (Auto) [place] % (Auto) Eos % (Auto) Baso % (Auto) Neut # (Auto) Lymph # (Auto) [place] # (Auto) Eos # (Auto) Baso # (Auto) WBC Differential Seg Neuts % (Manual) Band Neuts % (Manual) Lymphocytes % (Manual) Monocytes % (Manual) Abs Neuts (Manual) Nucleated RBCs/100 WBC Differential Comment Platelet Estimate Platelet Morphology RBC Morphology PT INR APTT Puncture Site Patient Temperature O2 Saturation ABG pH ABG pCO2 ABG pO2 ABG HCO3 ABG O2 Content ABG Base Excess ABG Methemoglobin Nixon Test Hemoglobin Carboxyhemoglobin O2 Delivery Device Vent Setting Inspired O2 Critical Value Sodium Potassium Chloride Carbon Dioxide Anion Gap BUN Creatinine Estimated GFR POC Glucose 224 H 200 H 162 H Random Glucose Calcium Prot Corrected Calcium Phosphorus Magnesium Total Bilirubin AST ALT Alkaline Phosphatase Ammonia Total Creatine Kinase CK-MB (CK-2) CK-MB (CK-2) % Troponin I Total Protein Albumin Urine Color Urine Clarity Urine pH Ur Specific [place] Urine Protein Urine Glucose (UA) Urine Ketones Urine Occult Blood Urine Nitrate Urine Bilirubin Urine Urobilinogen Ur Leukocyte Esterase Urine RBC Urine WBC Urine WBC Clumps Ur Squamous Epith Cells Urine Bacteria Micro UA Comment Ur Microscopic Review Urine Culture Comments Nasal Screen MRSA (PCR) Urine Opiates Screen Ur Barbiturates Screen Phenytoin Ur Amphetamines Screen U Benzodiazepines Scrn Urine Cocaine Screen U Cannabinoids Screen Serum Alcohol Hepatitis A IgM Ab Hep Bs Antigen Hep B Core IgM Ab Hep C IgG Ab 07/20/18 07/20/18 07/20/18 04:08 05:20 05:20 CBC w Diff WBC 12.3 H RBC 4.38 Hgb 14.1 Hct 39.8 MCV 90.7 MCH 32.1 MCHC 35.4 RDW 17.7 H Plt Count 279 MPV 7.8 Neut % (Auto) 85.7 H Lymph % (Auto) 7.9 L [place] % (Auto) 6.2 Eos % (Auto) 0.0 Baso % (Auto) 0.2 Neut # (Auto) 10.6 H Lymph # (Auto) 1.0 [place] # (Auto) 0.8 Eos # (Auto) 0.0 Baso # (Auto) 0.0 WBC Differential . Seg Neuts % (Manual) Band Neuts % (Manual) Lymphocytes % (Manual) Monocytes % (Manual) Abs Neuts (Manual) Nucleated RBCs/100 WBC Differential Comment Auto diff final Platelet Estimate Platelet Morphology RBC Morphology PT INR APTT Puncture Site Patient Temperature O2 Saturation ABG pH ABG pCO2 ABG pO2 ABG HCO3 ABG O2 Content ABG Base Excess ABG Methemoglobin Nixon Test Hemoglobin Carboxyhemoglobin O2 Delivery Device Vent Setting Inspired O2 Critical Value Sodium Potassium Chloride Carbon Dioxide Anion Gap BUN Creatinine Estimated GFR POC Glucose 163 H Random Glucose Calcium Prot Corrected Calcium Phosphorus Magnesium Total Bilirubin AST ALT Alkaline Phosphatase Ammonia 15 Total Creatine Kinase CK-MB (CK-2) CK-MB (CK-2) % Troponin I Total Protein Albumin Urine Color Urine Clarity Urine pH Ur Specific [place] Urine Protein Urine Glucose (UA) Urine Ketones Urine Occult Blood Urine Nitrate Urine Bilirubin Urine Urobilinogen Ur Leukocyte Esterase Urine RBC Urine WBC Urine WBC Clumps Ur Squamous Epith Cells Urine Bacteria Micro UA Comment Ur Microscopic Review Urine Culture Comments Nasal Screen MRSA (PCR) Urine Opiates Screen Ur Barbiturates Screen Phenytoin Ur Amphetamines Screen U Benzodiazepines Scrn Urine Cocaine Screen U Cannabinoids Screen Serum Alcohol Hepatitis A IgM Ab Hep Bs Antigen Hep B Core IgM Ab Hep C IgG Ab 07/20/18 07/20/18 07/20/18 05:20 08:02 11:32 CBC w Diff WBC RBC Hgb Hct MCV MCH MCHC RDW Plt Count MPV Neut % (Auto) Lymph % (Auto) [place] % (Auto) Eos % (Auto) Baso % (Auto) Neut # (Auto) Lymph # (Auto) [place] # (Auto) Eos # (Auto) Baso # (Auto) WBC Differential Seg Neuts % (Manual) Band Neuts % (Manual) Lymphocytes % (Manual) Monocytes % (Manual) Abs Neuts (Manual) Nucleated RBCs/100 WBC Differential Comment Platelet Estimate Platelet Morphology RBC Morphology PT INR APTT Puncture Site Patient Temperature O2 Saturation ABG pH ABG pCO2 ABG pO2 ABG HCO3 ABG O2 Content ABG Base Excess ABG Methemoglobin Nixon Test Hemoglobin Carboxyhemoglobin O2 Delivery Device Vent Setting Inspired O2 Critical Value Sodium 140 Potassium 3.5 D Chloride 105 Carbon Dioxide 23.5 Anion Gap 12 BUN 29 H Creatinine 1.41 H Estimated GFR 37 L POC Glucose 194 H Random Glucose 177 H Calcium 7.6 L Prot Corrected Calcium Phosphorus 2.7 D Magnesium 1.3 L Total Bilirubin 0.5 AST 359 H ALT 423 H Alkaline Phosphatase 105 Ammonia Total Creatine Kinase CK-MB (CK-2) CK-MB (CK-2) % Troponin I Total Protein 7.2 Albumin 2.7 L Urine Color Urine Clarity Urine pH Ur Specific [place] Urine Protein Urine Glucose (UA) Urine Ketones Urine Occult Blood Urine Nitrate Urine Bilirubin Urine Urobilinogen Ur Leukocyte Esterase Urine RBC Urine WBC Urine WBC Clumps Ur Squamous Epith Cells Urine Bacteria Micro UA Comment Ur Microscopic Review Urine Culture Comments Nasal Screen MRSA (PCR) Urine Opiates Screen Ur Barbiturates Screen Phenytoin Ur Amphetamines Screen U Benzodiazepines Scrn Urine Cocaine Screen U Cannabinoids Screen Serum Alcohol Hepatitis A IgM Ab Nonreactive Hep Bs Antigen Nonreactive Hep B Core IgM Ab Nonreactive Hep C IgG Ab Reactive H 07/20/18 07/20/18 07/20/18 16:54 21:17 21:27 CBC w Diff WBC RBC Hgb Hct MCV MCH MCHC RDW Plt Count MPV Neut % (Auto) Lymph % (Auto) [place] % (Auto) Eos % (Auto) Baso % (Auto) Neut # (Auto) Lymph # (Auto) [place] # (Auto) Eos # (Auto) Baso # (Auto) WBC Differential Seg Neuts % (Manual) Band Neuts % (Manual) Lymphocytes % (Manual) Monocytes % (Manual) Abs Neuts (Manual) Nucleated RBCs/100 WBC Differential Comment Platelet Estimate Platelet Morphology RBC Morphology PT INR APTT Puncture Site Patient Temperature O2 Saturation ABG pH ABG pCO2 ABG pO2 ABG HCO3 ABG O2 Content ABG Base Excess ABG Methemoglobin Nixon Test Hemoglobin Carboxyhemoglobin O2 Delivery Device Vent Setting Inspired O2 Critical Value Sodium Potassium Chloride Carbon Dioxide Anion Gap BUN Creatinine Estimated GFR POC Glucose 150 H 133 H Random Glucose Calcium Prot Corrected Calcium Phosphorus Magnesium 2.4 D Total Bilirubin AST ALT Alkaline Phosphatase Ammonia Total Creatine Kinase CK-MB (CK-2) CK-MB (CK-2) % Troponin I Total Protein Albumin Urine Color Urine Clarity Urine pH Ur Specific [place] Urine Protein Urine Glucose (UA) Urine Ketones Urine Occult Blood Urine Nitrate Urine Bilirubin Urine Urobilinogen Ur Leukocyte Esterase Urine RBC Urine WBC Urine WBC Clumps Ur Squamous Epith Cells Urine Bacteria Micro UA Comment Ur Microscopic Review Urine Culture Comments Nasal Screen MRSA (PCR) Urine Opiates Screen Ur Barbiturates Screen Phenytoin Ur Amphetamines Screen U Benzodiazepines Scrn Urine Cocaine Screen U Cannabinoids Screen Serum Alcohol Hepatitis A IgM Ab Hep Bs Antigen Hep B Core IgM Ab Hep C IgG Ab 07/21/18 07/21/18 07/21/18 00:26 03:45 03:45 CBC w Diff WBC 9.3 RBC 4.24 Hgb 13.6 Hct 39.5 MCV 93.2 MCH 32.1 MCHC 34.4 RDW 17.7 H Plt Count 235 MPV 7.9 Neut % (Auto) 84.6 H Lymph % (Auto) 9.0 [place] % (Auto) 6.3 Eos % (Auto) 0.0 Baso % (Auto) 0.1 Neut # (Auto) 7.9 H Lymph # (Auto) 0.8 L [place] # (Auto) 0.6 Eos # (Auto) 0.0 Baso # (Auto) 0.0 WBC Differential . Seg Neuts % (Manual) Band Neuts % (Manual) Lymphocytes % (Manual) Monocytes % (Manual) Abs Neuts (Manual) Nucleated RBCs/100 WBC Differential Comment Auto diff final Platelet Estimate Platelet Morphology RBC Morphology PT INR APTT Puncture Site Patient Temperature O2 Saturation ABG pH ABG pCO2 ABG pO2 ABG HCO3 ABG O2 Content ABG Base Excess ABG Methemoglobin Nixon Test Hemoglobin Carboxyhemoglobin O2 Delivery Device Vent Setting Inspired O2 Critical Value Sodium 143 Potassium 3.4 L Chloride 109 H Carbon Dioxide 22.4 Anion Gap 12 BUN 31 H Creatinine 1.37 H Estimated GFR 38 L POC Glucose 128 H Random Glucose 118 H Calcium 7.5 L Prot Corrected Calcium Phosphorus 2.9 Magnesium 2.2 Total Bilirubin 0.6 AST 202 H ALT 265 H Alkaline Phosphatase 90 Ammonia Total Creatine Kinase CK-MB (CK-2) CK-MB (CK-2) % Troponin I Total Protein 6.6 D Albumin 2.5 L Urine Color Urine Clarity Urine pH Ur Specific [place] Urine Protein Urine Glucose (UA) Urine Ketones Urine Occult Blood Urine Nitrate Urine Bilirubin Urine Urobilinogen Ur Leukocyte Esterase Urine RBC Urine WBC Urine WBC Clumps Ur Squamous Epith Cells Urine Bacteria Micro UA Comment Ur Microscopic Review Urine Culture Comments Nasal Screen MRSA (PCR) Urine Opiates Screen Ur Barbiturates Screen Phenytoin Ur Amphetamines Screen U Benzodiazepines Scrn Urine Cocaine Screen U Cannabinoids Screen Serum Alcohol Hepatitis A IgM Ab Hep Bs Antigen Hep B Core IgM Ab Hep C IgG Ab 07/21/18 07/21/18 07/21/18 03:49 06:06 08:12 CBC w Diff WBC RBC Hgb Hct MCV MCH MCHC RDW Plt Count MPV Neut % (Auto) Lymph % (Auto) [place] % (Auto) Eos % (Auto) Baso % (Auto) Neut # (Auto) Lymph # (Auto) [place] # (Auto) Eos # (Auto) Baso # (Auto) WBC Differential Seg Neuts % (Manual) Band Neuts % (Manual) Lymphocytes % (Manual) Monocytes % (Manual) Abs Neuts (Manual) Nucleated RBCs/100 WBC Differential Comment Platelet Estimate Platelet Morphology RBC Morphology PT INR APTT Puncture Site Patient Temperature O2 Saturation ABG pH ABG pCO2 ABG pO2 ABG HCO3 ABG O2 Content ABG Base Excess ABG Methemoglobin Nixon Test Hemoglobin Carboxyhemoglobin O2 Delivery Device Vent Setting Inspired O2 Critical Value Sodium Potassium Chloride Carbon Dioxide Anion Gap BUN Creatinine Estimated GFR POC Glucose 116 H 112 H 100 Random Glucose Calcium Prot Corrected Calcium Phosphorus Magnesium Total Bilirubin AST ALT Alkaline Phosphatase Ammonia Total Creatine Kinase CK-MB (CK-2) CK-MB (CK-2) % Troponin I Total Protein Albumin Urine Color Urine Clarity Urine pH Ur Specific [place] Urine Protein Urine Glucose (UA) Urine Ketones Urine Occult Blood Urine Nitrate Urine Bilirubin Urine Urobilinogen Ur Leukocyte Esterase Urine RBC Urine WBC Urine WBC Clumps Ur Squamous Epith Cells Urine Bacteria Micro UA Comment Ur Microscopic Review Urine Culture Comments Nasal Screen MRSA (PCR) Urine Opiates Screen Ur Barbiturates Screen Phenytoin Ur Amphetamines Screen U Benzodiazepines Scrn Urine Cocaine Screen U Cannabinoids Screen Serum Alcohol Hepatitis A IgM Ab Hep Bs Antigen Hep B Core IgM Ab Hep C IgG Ab 07/21/18 07/21/18 11:25 15:06 CBC w Diff WBC RBC Hgb Hct MCV MCH MCHC RDW Plt Count MPV Neut % (Auto) Lymph % (Auto) [place] % (Auto) Eos % (Auto) Baso % (Auto) Neut # (Auto) Lymph # (Auto) Hamilton # (Auto) Eos # (Auto) Baso # (Auto) WBC Differential Seg Neuts % (Manual) Band Neuts % (Manual) Lymphocytes % (Manual) Monocytes % (Manual) Abs Neuts (Manual) Nucleated RBCs/100 WBC Differential Comment Platelet Estimate Platelet Morphology RBC Morphology PT INR APTT Puncture Site Patient Temperature O2 Saturation ABG pH ABG pCO2 ABG pO2 ABG HCO3 ABG O2 Content ABG Base Excess ABG Methemoglobin Nixon Test Hemoglobin Carboxyhemoglobin O2 Delivery Device Vent Setting Inspired O2 Critical Value Sodium Potassium Chloride Carbon Dioxide Anion Gap BUN Creatinine Estimated GFR POC Glucose 122 H 103 Random Glucose Calcium Prot Corrected Calcium Phosphorus Magnesium Total Bilirubin AST ALT Alkaline Phosphatase Ammonia Total Creatine Kinase CK-MB (CK-2) CK-MB (CK-2) % Troponin I Total Protein Albumin Urine Color Urine Clarity Urine pH Ur Specific [place] Urine Protein Urine Glucose (UA) Urine Ketones Urine Occult Blood Urine Nitrate Urine Bilirubin Urine Urobilinogen Ur Leukocyte Esterase Urine RBC Urine WBC Urine WBC Clumps Ur Squamous Epith Cells Urine Bacteria Micro UA Comment Ur Microscopic Review Urine Culture Comments Nasal Screen MRSA (PCR) Urine Opiates Screen Ur Barbiturates Screen Phenytoin Ur Amphetamines Screen U Benzodiazepines Scrn Urine Cocaine Screen U Cannabinoids Screen Serum Alcohol Hepatitis A IgM Ab Hep Bs Antigen Hep B Core IgM Ab Hep C IgG Ab Result Diagrams: 07/21/18 03:45 07/21/18 03:45 Microbiology: Microbiology 07/19/18 04:26 Gram Stain - Final Sputum - Endotracheal Sputum Culture - Final Heavy growth normal respiratory lakesha 07/18/18 17:05 Aerobic Blood Culture - Preliminary Blood - Peripheral No growth in 3 days Anaerobic Blood Culture - Preliminary No growth in 3 days 07/18/18 17:00 Aerobic Blood Culture - Preliminary Blood - Peripheral No growth in 3 days Anaerobic Blood Culture - Preliminary No growth in 3 days 07/18/18 17:53 Urine Culture - Final Clean Catch Urine Escherichia coli Procedures: * 07/18/18 - asystolic arrest x 2, intubated, central line placed. Assessment and Plan - Disease Oriented Problem List (1) Cardiac arrest (2) Respiratory failure with hypoxia (3) HTN (hypertension) (4) Shock (5) Anoxic encephalopathy (6) UTI (urinary tract infection) (7) Coffee ground vomiting (8) Alcohol dependence (9) WM (acute kidney injury) (10) Hyperglycemia (11) Multiple rib fractures Pertinent Non-Medical Issues: Psychosocial: 3 years ago. Has a recent "boyfriend" who has been staying with her. Has 1 adult daughter and 2 granddaughters, live local. Spiritual: None. 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 Legal:Patient is not capacitated to make her own health care decisions, uncertain if she will regain capacity. Single. Has 1 daughter. No written advance directives. According to [place] statutes, health care proxy decision making falls to her daughter. Ethical issues impacting care: None. Important Contacts: * Evelia Lopez, dtr/ hcp: [phone] Prognosis: Discussed with Dr. Ag and Dr. Sparrow, plan to hold sedation to better evaluate neurologic status. EEG pending. If no improvement in neurologic status when off sedation, prognosis would be poor for meaningful recovery. Code Status: Full Code Plan: * Patient is not capacitated to make her own health care decisions, uncertain if she will regain capacity. Single. Has 1 daughter. No written advance directives. According to [place] statutes, health care proxy decision making falls to her daughter. * FULL CODE - daughter considering and knows to notify team if she decides for alternate code status. * Goals remain aggressive at this time. Spoke with daughter and friend at bedside. Medical update provided. Reviewed plan for possible EEG. Lengthy discussion about concern for anoxic brain injury and poor prognosis for meaningful recovery. Daughter is tearful, again stating "I just keep hoping she will just wake up, I keep hoping for a miracle." She continues to talk about DNR , but again is not yet ready to commit to a decision. She indicates all family and friends support DNR decision. We talked about the possibility trach and peg decisions in no neuro improvement. Daughter states "I know she wouldn't want to live like a vegetable." I also briefly touched on possibility of progression to brain . Agreed to provide another update 07/22/18. * SYMPTOMS: Pain and dyspnea: currently sedated on mech vent, no obvious signs of pain or SOB. Will monitor closely when off sedation. * Palliative care will continue to follow to assist with symptom management and clarification of medical treatment goals.
--- NOTE | 2018-07-21 17:13 | P.DIET ---
Nutritional Evaluation Type of nutrition evaluation: initial Screening comments: NPO x3 days Objective - Diagnosis s/p arrest w/ ROSC - Objective Body Mass Index: 27.2 % IBW: 129 (IBW = 130lb) Body Weight Used for Calculations: Actual Energy Needs - Lower Range (kCal/kg): 25 Energy Needs - Upper Range (kCal/kg): 30 Lower Limit kCal/kg (kCals): 1,912 Upper Limit kCal/kg (kCals): 2,295 Lower Limit Protein Factor (Grams per Kg): 1.2 Upper Limit Protein Factor (Grams per Kg): 1.5 Lower Protein Needs (Protein): 92 Upper Protein Needs (Protein): 115 Fluid Factor (ml/kg): 25 Estimated Fluid Needs (ml): 1,912 Dietitian Reviewed in Medical Record: Current diet, Curent medications, Intake & Output, Labs, Medical history Diet Order: NPO Objective Comments: PMH: GERD, HTN, hypothyroid Labs: BUN 31, Cr 1.38, GFR 38 Assessment Assessment: Pt currently at nutritional risk d/t NPO x3 days and in need of TFing. Pt currently on mech vent, off sedation for 38 hrs and has minimal response. Per palliative care process note, pts daughter still wants aggressive treatment and was notified of possible PEG. Pt would benefit from Jevity 1.5 TF goal rate @ 55mL/hr to provide 1980kcal, 84g of protein, 1003 mL of free water to meet her nutritional needs. Will monitor for TF tolerance when pt is receiving TF. Labs reviewed, dietitian following. Additional recs as medical course changes. Recommendations: 1. Recommend Jevity 1.5 TF goal rate @ 55mL/hr to meet pts nutritional needs 2. Will monitor for TF tolerance when pt is receiving TF 3. Dietitian following. Dietitian to Monitor: Lab values, Intake & Output, Tube feeding tolerance, Weight change, Medical course
--- NOTE | 2018-07-21 17:51 | MG ---
cc: Jaz Sparrow MD, Louis M MD ELECTROENCEPHALOGRAM NUMBER: [id number] REFERRING PHYSICIAN: Jose Chow MD CLINICAL HISTORY: A 73-year-old. Room 507. Intubated. No sedation. Photic done. Unresponsive. Given deep tactile stimulation in all 4 extremities, negative in both lower and right upper, mild on the left upper. Last EEG on 07/19/2018 showed diffuse slowing, possibly anoxia. Admitted with PEA. Found down for unknown length of time. Found to have an ethanol level of 157. This is a repeat followup EEG. Currently on Cerebyx and antibiotics. DESCRIPTION OF RECORD: There is significant attenuation of the background. There is ongoing ICU artifact from the ventilator as well as an EKG and some eye movement and body shivering. No correlation with any epileptic activity. This is predominantly a very low-amplitude diffusely slow background. Photic stimulation is given toward the end of the recording without any driving response. There is noted some left shoulder jerking. There is no correlation with any epileptiform features. Stimulation is given. Background does not change. IMPRESSION: Significant slowing of background without any epileptiform features. This may be seen in severe encephalopathy versus anoxic encephalopathy. MD RM Friedman/jesica , 04:12 PM , 04:18 PM
[2018-07-22] MEDS: Oral Hygiene Kit OROPHARYNG SCH ×4 (00:15→15:57)
[2018-07-22] MEDS: Piperacil/Tazo 2.25 GM Premix 50 ML IV.SIG SCH ×4 (00:15→17:03)
[2018-07-22] MEDS: Insulin NovoLIN Regular Correctional Sugar Inj SQ SCH ×6 (00:20→21:40)
[2018-07-22] MEDS: Chlorhexidine Gluconate 2% 1 Pack (2 Cloths) TOPICAL SCH (03:34)
[2018-07-22] MEDS: Artificial Tears Opth Drops 15 ML Bottle EACH EYE SCH ×3 (03:34→17:03)
[2018-07-22] MEDS: Sod Chloride 0.9% Inj 1,000 ML IV.CONT SCH (04:42)
--- NOTE | 2018-07-22 05:03 | XR ---
EXAM DATE: 07/22/2018 4:27 AM EDT AGE/SEX: 73 years / Female INDICATIONS: Shortness of breath, possible pulmonary disease. CLINICAL DATA: This is the patient's subsequent encounter. Patient reports that signs and symptoms h ave been present for 4 - 6 days and indicates a pain score of Nonresponsive. MEDICAL/SURGICAL HISTORY: Gastroesophageal reflux disease. Hypertension. Hyperthyroidism. Jorge endectomy. COMPARISON: [facility], CHEST 1V SINGLE AP, 07/19/2018. . FINDINGS: Lungs are clear. No pleural effusion seen. No pneumothorax. Heart size stable, within normal limits. Endotracheal tube tip is approximately 4 cm above the kel. Nasogastric tube courses into the stoma ch. Previously seen right subclavian line has been removed. CONCLUSION: No acute abnormality demonstrated. Electronically signed by: Carl Bennett MD 07/22/2018 5:02 AM EDT
[2018-07-22] MEDS: Fosphenytoin Inj 100 MGPE in Sodium Chlor 0.9% Inj 50 ML IV.SIG SCH ×3 (05:21→21:41)
[2018-07-22] MEDS: Pantoprazole Inj 80 MG in Sodium Chlor 0.9% Inj 100 ML IV.CONT SCH (06:03)
[2018-07-22 06:45] LABS: Alanine Aminotransferase 179 U/L (10-53); Albumin 2.6 g/dL (3.4-5.0); Alkaline Phosphatase 95 U/L (45-117); Anion Gap 14 meq/L (5-15); Aspartate Aminotransferase 173 U/L (15-37); Blood Urea Nitrogen 47 mg/dL (7-18); Calcium 7.9 mg/dL (8.5-10.1); Chloride 120 meq/L (98-107); Glomerular Filtration Rate 28 mL/min (>89); Glucose,Random 88 mg/dL (74-106); Magnesium 2.4 mg/dL (1.5-2.5); Phenytoin (Dilantin) 11.1 mcg/mL (10.0-20.0); Phosphorus 4.1 mg/dL (2.5-4.9); Potassium 4.7 meq/L (3.5-5.1); Sodium 151 meq/L (136-145); Total Protein 6.8 g/dL (6.4-8.2)
[2018-07-22 06:51] LABS: Baso % (Auto) 0.2 % (0.0-2.0); Eos % (Auto) 0.1 % (0.0-4.0); Hematocrit 40.7 % (35.0-46.0); Hemoglobin 13.6 gm/dL (11.6-15.3); Lymph # (Auto) 1.6 th/mm3 (1.0-4.8); Lymph % (Auto) 15.1 % (9.0-44.0); Mean Corpuscular HGB Conc 33.5 % (32.0-36.0); Mean Corpuscular Hemoglobin 32.2 pg (27.0-34.0); Mean Corpuscular Volume 96.1 fL (80.0-100.0); Mean Platelet Volume 7.8 fL (7.0-11.0); Mono % (Auto) 9.1 % (0.0-8.0); Neut # (Auto) 8.3 th/mm3 (1.8-7.7); Neut % (Auto) 75.5 % (16.0-70.0); Platelet Count 246 th/mm3 (150-450); Red Blood Count 4.24 mil/mm3 (4.00-5.30); Red Cell Distribution Width 18.5 % (11.6-17.2); White Blood Count 10.9 th/mm3 (4.0-11.0)
[2018-07-22] MEDS: Folic Acid 1 MG Tablet PO SCH (08:05)
[2018-07-22] MEDS: Metoprolol Tartrate 25 MG Tablet PO SCH ×2 (08:06→21:41)
[2018-07-22] MEDS: Senna/Docusate Sodium 8.6/50 MG Tablet PO SCH ×2 (08:06→21:41)
[2018-07-22] MEDS: Polyethylene Glycol 3350 17 GM Packet PO SCH ×2 (08:06→21:41)
[2018-07-22] MEDS: Thiamine Inj 100 MG in Sodium Chlor 0.9% Inj 100 ML IV.SIG SCH (08:06)
[2018-07-22] MEDS: rifAXIMin 550 MG Tablet NG/OG SCH ×2 (08:06→21:41)
[2018-07-22] MEDS: Chlorhexidine 0.12% Oral Kit 15 ML UDC OROPHARYNG SCH ×2 (08:07→21:40)
[2018-07-22] MEDS ORDERED: Mineral Oil 55% Emulsion 480 ML PO ONE (08:42)
[2018-07-22] MEDS ORDERED: Methylnaltrexone Inj 12 MG/0.6 ML Vial SQ ONE (08:42)
[2018-07-22] MEDS ORDERED: Magnesium Citrate Liq 300 ML Bottle PO ONE (08:43)
--- NOTE | 2018-07-22 08:44 | P.PNCC ---
Subjective Subjective Remarks/Hospital Course: 73-year-old female with past medical history of hypertension, GERD, hypothyroidism, alcohol dependence, chronic pain on methadone, depression who presented to [facility] following asystolic cardiac arrest. She had last been seen normal about 2-1/2 hours prior. Her boyfriend came home and found her unresponsive. When [facility] arrived she was in asystole. She had a large amount of black emesis at the scene. CPR was initiated and she was given epinephrine x2 and bicarb and had ROSC. Combitube was placed. Had a second cardiac arrest. She was intubated in the emergency department. She was initially hypotensive and was started on Levophed. CT brain was negative for acute abnormality. CT chest demonstrates multiple right-sided rib fractures. There is no pulmonary embolism. EKG has no ST elevation. Troponin 0 0.11. Her daughter states she was having a cough and spitting up some phlegm yesterday. She drinks a bottle of vodka daily. She has been depressed since her 3 years ago. Her daughter is her only child. She has no advanced directive. 07/19 Patient is sedated with Diprivan and intubated. Unresponsive. 07/20 Patient is off sedation unresponsive. On Protonix drip. Afebrile. 07/21: Remains unresponsive. T-max 99.3 remains on pantoprazole drip. Hemodynamically stable. Hemoglobin stable. SUBJECTIVE: 07/22: Afebrile. No bowel movement overnight. KUB pending. EEG revealed acute encephalopathy versus anoxic injury. Supportive care at the present time ongoing. Objective Vital Signs / I&O: Vital Signs 07/21/18 09:14 07/21/18 10:00 07/21/18 10:22 Temperature 99.1 F 99.1 F 99.0 F Pulse Rate 78 75 76 Respiratory Rate 21 21 21 Blood Pressure 176/79 H 168/77 H Pulse Oximetry 100 100 100 07/21/18 10:30 07/21/18 10:45 07/21/18 11:00 Temperature 99.0 F 99.1 F 99.1 F Pulse Rate 77 81 81 Respiratory Rate 15 20 18 Blood Pressure 170/79 H 107/55 L 105/57 L Pulse Oximetry 99 99 99 07/21/18 11:15 07/21/18 11:30 07/21/18 11:45 Temperature 99.1 F 99.1 F 99.1 F Pulse Rate 81 80 81 Respiratory Rate 19 17 19 Blood Pressure 104/55 L 100/57 L 108/58 L Pulse Oximetry 99 99 99 07/21/18 12:00 07/21/18 12:15 07/21/18 12:29 Temperature 99.1 F 99.3 F Pulse Rate 81 80 Respiratory Rate 20 19 17 Blood Pressure 110/59 L 116/59 L Pulse Oximetry 99 99 99 07/21/18 13:00 07/21/18 14:00 07/21/18 15:00 Temperature 99.7 F H 100.0 F H 100.2 F H Pulse Rate 81 84 83 Respiratory Rate 24 19 23 Blood Pressure 124/69 122/80 130/73 Pulse Oximetry 99 99 99 07/21/18 16:00 07/21/18 17:31 07/21/18 17:36 Temperature 100.2 F H Pulse Rate 84 89 Respiratory Rate 26 H 26 H 26 H Blood Pressure 144/69 H Pulse Oximetry 99 99 07/21/18 20:00 07/21/18 20:58 07/21/18 21:03 Temperature 99.1 F Pulse Rate 85 87 Respiratory Rate 18 25 H 25 H Blood Pressure 142/76 H Pulse Oximetry 99 99 07/22/18 00:35 07/22/18 04:00 07/22/18 04:52 Temperature 99.5 F Pulse Rate 82 87 Respiratory Rate 24 22 20 Blood Pressure 156/67 H Pulse Oximetry 100 99 07/22/18 04:53 07/22/18 08:29 07/22/18 08:35 Temperature Pulse Rate 90 Respiratory Rate 20 24 24 Blood Pressure Pulse Oximetry 100 96 Intake & Output 07/21/18 07/22/18 07/22/18 18:59 06:59 18:59 Intake Total 1503 / 1503 1434 / 1434 Output Total 200 / 200 425 / 425 Balance 1303 / 1303 1009 / 1009 Weight 73.5 kg Intake: IV 1403 / 1403 1404 / 1404 Protonix Inj 80 MG In NS Inj 100 / 100 200 / 200 100 ML @ 10 mls/hr IV.CONT Q10H [facility] Rx#:[id number] NS Inj 1,000 ML @ 84 mls/hr IV. 1000 / 1000 1000 / 1000 CONT .[id number] [facility] Rx#: [id number] Cerebyx Inj 100 MGPE In NS Inj 52 / 52 104 / 104 50 ML @ 208 mls/hr IV.SIG Q8HR [facility] Rx#:[id number] Zosyn 2.25 GM Premix 50 ML @ 150 / 150 100 / 100 100 mls/hr IV.SIG Q6H [facility] Rx#: [id number] Thiamine Inj 100 MG In NS Inj 101 / 101 100 ML @ 100 mls/hr IV.SIG DAILY [facility] Rx#:[id number] Water Bolus Amount 100 / 100 30 / 30 Output: Urine 200 / 200 400 / 400 Stool 0 / 0 Gastric Drainage 25 / Orogastric Tube 25 / Other: Date of Last Bowel Movement 07/19/18 07/19/18 Result Diagrams: 07/22/18 05:45 07/22/18 05:45 Objective Remarks: GENERAL: Patient is 73 yo intubated unresponsive SKIN: Warm and dry. HEAD: Normocephalic. EYES: No scleral icterus. No injection or drainage. NECK: Supple, trachea midline. No JVD or lymphadenopathy. CARDIOVASCULAR: Regular rate and rhythm without murmurs, gallops, or rubs. RESPIRATORY: Breath sounds equal bilaterally. No accessory muscle use. GASTROINTESTINAL: Abdomen soft, non-tender, nondistended. MUSCULOSKELETAL: No cyanosis, or edema. Neuro: Intubated, unresponsive. No cough, gag reflex. Assessment and Plan - Assessment and Plan Plan: NEURO: Coma Anoxic encephalopathy Seizure Alcohol dependence Acute alcohol intoxication upon presentation Fosphenytoin load and 100 mg PE q8 hours. Dilantin level 10.8 07/19 Off sedation EEG: Diffuse slowing of background seen with diffuse cerebral dysfunction, possibly with an anoxia. No epileptiform features. CT brain no acute abnormality. Thiamine/multivitamin/folic acid supplementation. Neuro is following- Dr. Sparrow RESP: Acute hypoxic respiratory failure Multiple rib fractures PRVC. Ventilator bundle. Neuro status prevents extubation Continue with vent support keep sats >92% Bronchodilators, ICU vent bundle. CXR: Mild bibasilar patchy infiltrate CV: Asystolic cardiac arrest Hypotension postarrest (resolved) Hypertension Elevated troponin - likely demand ischemia following respiratory arrest Monitor HR and BP keep MAP>65mmHg Increase Lopressor 50mg BID for BP control. Monitor trop, for 2D echo to eval LV function GI: Coffee-ground output from OG tube Vomiting Diarrhea present on admission Cirrhosis Elevated LFT's...trending down Ischemic hepatitis versus acute alcoholic hepatitis Hyperammonemia Hep C AB + Tricke feed Lansoprazole 30 mg daily Consult GI if evidence of significant active bleeding. US liver: small amount of sludge within the gallbladder with no definite stones. The common bile duct appears mildly prominent at 8 mm. Check Hepatitis profile - neg. Rifaximin 550 mg p.o. twice daily and lactulose 30 cc 4 times daily. Recheck ammonia level in a.m. 07/22 FEN/RENAL: Hypokalemia Hyper Na+ Acute kidney injury- improving 09/24 NS 42 mL/h. Free H20 200 cc q6h. Periwick in place. Monitor intake and output. Monitor electrolytes and replace as indicated. Renal function is sl worse ID: E. coli UTI present on admission Follow-up blood urine and sputum culture. Pipracil/tazobactam 2.25 g IV every 6 hours HEME: Monitor CBC. Transfuse as needed for Hgb < 7. ENDO: Acute hyperglycemia Monitor bedside glucose every 4 hours and administer low-dose insulin sliding scale as indicated. PROPH: SCDs for DVT prophylaxis. Pharmacologic DVT prophylaxis contraindicated due to GI bleeding. Lansoprazole GI prophylaxis ACCESS: Right subclavian central venous line placed 07/19 and heading cephalad. Discontinued 07/21 Palliative care is following Full code Critical care time 35 minutes exclusive of separately billable procedure
[2018-07-22] MEDS ORDERED: Sodium Chloride 23.4% Inj 38.5 MEQ in Water for Inj, Sterile 1,000 ML IV.CONT SCH (09:00)
[2018-07-22] MEDS ORDERED: Mineral Oil 55% Emulsion 30 ML UDC PO ONE (09:15)
--- NOTE | 2018-07-22 09:51 | XR ---
EXAM DATE: 07/22/2018 9:48 AM EDT AGE/SEX: 73 years / Female INDICATIONS: Constipation. CLINICAL DATA: This is the patient's initial encounter. Patient reports that signs and symptoms have been present for 1 day and indicates a pain score of Nonresponsive. MEDICAL/SURGICAL HISTORY: . Gastroesophageal reflux disease. Hypertension. Hypothyroidism. Appe ndectomy. Rhinoplasty. . COMPARISON: No prior exams available for comparison. FINDINGS: The abdominal bowel gas pattern is normal. No abnormal masses, calcifications, or organomegaly is s een. The osseous structures are unremarkable. NG tube within the stomach CONCLUSION: NG tube within the stomach, otherwise unremarkable two-view abdomen Electronically signed by: Mat Rodriguez MD 07/22/2018 9:50 AM EDT
--- NOTE | 2018-07-22 16:45 | P.PNPAL ---
Reason for Visit Reason for visit: a. To assist with evaluation and management of symptoms including: encephalopathy, pain, dyspnea. b. To assist medical decision maker(s) with: better understanding of current medical conditions; weighing benefits/burdens of medical treatment options; making medical treatment decisions. Subjective Subjective/Interval History: Patient seen and examined in ICU. Daughter at bedside. Also present Deidra Davenport LCSW. Patient remains unresponsive off sedation. She breathes over mechanical vent, no cough, no gag, no withdraw to pain, does not follow commands , eyes open not tracking, does not blink to threat. Nurse indicates bowels are working now. KUB with normal bowel gas pattern. EEG revealed severe encephalopathy vs anoxic encephalopathy. Chest x-ray no acute abnormality. Afebrile. Urine culture + E. Coli. Creatinine increased to 1.76. Albumin 2.6. Family/Friend Interactions: Met with daughter at bedside. She continues to struggle with decisions. She again indicates her mother would not want to live like this. She tells me all family in agreement with NO CODE, but she is not ready to make this decision. Later got a call from nurseOpal that daughter wanted to sign a DNR order. Arrives at bedside. DaughterEvelia indicates she wants to sign the DNR order, [place] DNR order completed and order placed in EMR. She is asking about possible withdrawal of life support. Provided anticipatory guidance. She wants to speak with family and friends again tonight. She asks if I can have a plate put in worker come to give last rights tomorrow, offered plate put in worker visit today she tells me "I am not ready for this tonight." Offered family meeting 07/23/18 to meet with her and other family members, she will let me know if they can come tomorrow. Offered support. Questions answered. Advance Directives Living Will: Never completed Health Care Surrogate: Never completed Durable Power of Jury Consultant: Never completed Health Care Surrogate Name and Number: Health care proxy, Evelia Lopez, daughter: [phone] Significant change in goals:: NO CODE. Goals remain aggressive at this time short of DNR, she seems to be thinking about transition to comfort, not there yet. Objective Vital Signs: Vital Signs 07/21/18 17:00 07/21/18 17:31 07/21/18 17:36 Temperature 100.2 F H Pulse Rate 86 89 Respiratory Rate 25 H 26 H 26 H Blood Pressure 146/71 H Pulse Oximetry 100 99 07/21/18 18:00 07/21/18 18:01 07/21/18 19:00 Temperature 100.4 F H 100.6 F H 100.4 F H Pulse Rate 88 88 86 Respiratory Rate 25 H 26 H 24 Blood Pressure 125/62 140/65 Pulse Oximetry 100 100 100 07/21/18 20:00 07/21/18 20:58 07/21/18 21:00 Temperature 100.2 F H 99.9 F H Pulse Rate 85 95 H Respiratory Rate 25 H 25 H 24 Blood Pressure 142/76 H 155/99 H Pulse Oximetry 99 99 99 07/21/18 21:03 07/21/18 22:00 07/21/18 23:00 Temperature 99.7 F H 99.5 F Pulse Rate 87 89 81 Respiratory Rate 25 H 25 H 26 H Blood Pressure 159/91 H Pulse Oximetry 99 99 07/21/18 23:03 07/22/18 00:00 07/22/18 00:04 Temperature 99.5 F 99.3 F 99.3 F Pulse Rate 80 80 79 Respiratory Rate 24 22 27 H Blood Pressure 107/75 169/79 H 170/81 H Pulse Oximetry 99 99 100 07/22/18 00:35 07/22/18 01:00 07/22/18 02:00 Temperature 99.1 F 99.1 F Pulse Rate 78 80 Respiratory Rate 24 23 23 Blood Pressure 140/72 155/73 H Pulse Oximetry 100 100 99 07/22/18 03:00 07/22/18 04:00 07/22/18 04:13 Temperature 99.3 F 99.5 F 99.5 F Pulse Rate 81 82 82 Respiratory Rate 22 26 H 24 Blood Pressure 161/67 H 170/73 H 156/67 H Pulse Oximetry 99 99 100 07/22/18 04:52 07/22/18 04:53 07/22/18 05:00 Temperature 99.5 F Pulse Rate 87 83 Respiratory Rate 20 20 22 Blood Pressure 170/75 H Pulse Oximetry 100 100 07/22/18 06:00 07/22/18 06:02 07/22/18 07:00 Temperature 99.7 F H 99.7 F H 99.5 F Pulse Rate 85 85 86 Respiratory Rate 44 H 38 H 32 H Blood Pressure 139/64 157/70 H Pulse Oximetry 100 100 100 07/22/18 08:00 07/22/18 08:29 07/22/18 08:35 Temperature 99.5 F Pulse Rate 79 90 Respiratory Rate 25 H 24 24 Blood Pressure 140/61 Pulse Oximetry 94 L 96 07/22/18 09:00 07/22/18 10:00 07/22/18 11:00 Temperature 99.7 F H 99.5 F Pulse Rate 85 82 82 Respiratory Rate 31 H 28 H 25 H Blood Pressure 151/70 H 157/66 H 145/82 H Pulse Oximetry 97 99 100 07/22/18 11:24 07/22/18 12:00 07/22/18 13:00 Temperature 99.1 F Pulse Rate 84 87 Respiratory Rate 24 24 23 Blood Pressure 139/78 124/60 Pulse Oximetry 100 99 98 07/22/18 14:00 07/22/18 14:55 07/22/18 15:00 Temperature Pulse Rate 84 85 86 Respiratory Rate 22 21 22 Blood Pressure 135/64 141/67 H Pulse Oximetry 98 98 07/22/18 15:56 07/22/18 16:00 Temperature 99.1 F Pulse Rate 87 Respiratory Rate 22 22 Blood Pressure 139/63 Pulse Oximetry 99 99 Intake & Output 07/21/18 07/22/18 07/22/18 18:59 06:59 18:59 Intake Total 1503 / 1503 1434 / 1434 308 / 308 Output Total 200 / 200 425 / 425 Balance 1303 / 1303 1009 / 1009 308 / 308 Weight 73.5 kg Intake: IV 1403 / 1403 1404 / 1404 308 / 308 Protonix Inj 80 MG In NS Inj 100 / 100 200 / 200 30 / 30 100 ML @ 10 mls/hr IV.CONT Q10H [facility] Rx#:[id number] NS Inj 1,000 ML @ 84 mls/hr IV. 1000 / 1000 1000 / 1000 75 / 75 CONT .[id number] SUNITA Rx#: [id number] Cerebyx Inj 100 MGPE In NS Inj 52 / 52 104 / 104 52 / 52 50 ML @ 208 mls/hr IV.SIG Q8HR [facility] Rx#:[id number] Zosyn 2.25 GM Premix 50 ML @ 150 / 150 100 / 100 50 / 50 100 mls/hr IV.SIG Q6H SUNITA Rx#: [id number] Thiamine Inj 100 MG In NS Inj 101 / 101 101 / 101 100 ML @ 100 mls/hr IV.SIG DAILY SUNITA Rx#:[id number] Water Bolus Amount 100 / 100 Output: Urine 200 / 200 400 / 400 Stool 0 / 0 Gastric Drainage Orogastric Tube Other: Date of Last Bowel Movement 07/19/18 07/19/18 07/22/18 Physical Exam: CONSTITUTIONAL/GENERAL: This is a critically ill patient, on mech vent. TUBES/LINES/DRAINS: ETT, OG, right subclavian CL, PIV bilateral, bilateral soft wrist restraints, Johnston. SKIN: No jaundice, rashes, or lesions. Ecchymoses on upper extremities. No wounds seen anteriorly. Skin temperature appropriate. Not diaphoretic. EYES: scleral edema. ENT: Unable to assess hearing. nose without bleeding or purulent drainage. Throat difficult to visualize due to tubes. CARDIOVASCULAR: Regular rate and rhythm without murmurs. RESPIRATORY/CHEST: On mech vent. Breath sounds equal bilaterally. GASTROINTESTINAL: Abdomen soft, nondistended. + BS. GENITOURINARY: Without palpable bladder distension. Johnston catheter in place. MUSCULOSKELETAL: Extremities without clubbing, cyanosis, or edema. NEUROLOGICAL: Unresponsive. Not following commands, breathing over vent, no withdraw to pain. No cough or gag. Does not blink to threat. PSYCHIATRIC: Unresponsive off sedation. Diagnostic Tests Laboratory: Laboratory Results - last 72 hr 07/19/18 07/19/18 07/20/18 17:49 20:45 00:09 WBC RBC Hgb Hct MCV MCH MCHC RDW Plt Count MPV Neut % (Auto) Lymph % (Auto) Roberts % (Auto) Eos % (Auto) Baso % (Auto) Neut # (Auto) Lymph # (Auto) Roberts # (Auto) Eos # (Auto) Baso # (Auto) WBC Differential Differential Comment Hematology Comments Sodium Potassium Chloride Carbon Dioxide Anion Gap BUN Creatinine Estimated GFR POC Glucose 224 H 200 H 162 H Random Glucose Calcium Phosphorus Magnesium Total Bilirubin AST ALT Alkaline Phosphatase Ammonia Total Protein Albumin Phenytoin Hepatitis A IgM Ab Hep Bs Antigen Hep B Core IgM Ab Hep C IgG Ab 07/20/18 07/20/18 07/20/18 04:08 05:20 05:20 WBC 12.3 H RBC 4.38 Hgb 14.1 Hct 39.8 MCV 90.7 MCH 32.1 MCHC 35.4 RDW 17.7 H Plt Count 279 MPV 7.8 Neut % (Auto) 85.7 H Lymph % (Auto) 7.9 L Roberts % (Auto) 6.2 Eos % (Auto) 0.0 Baso % (Auto) 0.2 Neut # (Auto) 10.6 H Lymph # (Auto) 1.0 Roberts # (Auto) 0.8 Eos # (Auto) 0.0 Baso # (Auto) 0.0 WBC Differential . Differential Comment Auto diff final Hematology Comments Sodium Potassium Chloride Carbon Dioxide Anion Gap BUN Creatinine Estimated GFR POC Glucose 163 H Random Glucose Calcium Phosphorus Magnesium Total Bilirubin AST ALT Alkaline Phosphatase Ammonia 15 Total Protein Albumin Phenytoin Hepatitis A IgM Ab Hep Bs Antigen Hep B Core IgM Ab Hep C IgG Ab 07/20/18 07/20/18 07/20/18 05:20 08:02 11:32 WBC RBC Hgb Hct MCV MCH MCHC RDW Plt Count MPV Neut % (Auto) Lymph % (Auto) Roberts % (Auto) Eos % (Auto) Baso % (Auto) Neut # (Auto) Lymph # (Auto) Roberts # (Auto) Eos # (Auto) Baso # (Auto) WBC Differential Differential Comment Hematology Comments Sodium 140 Potassium 3.5 D Chloride 105 Carbon Dioxide 23.5 Anion Gap 12 BUN 29 H Creatinine 1.41 H Estimated GFR 37 L POC Glucose 194 H Random Glucose 177 H Calcium 7.6 L Phosphorus 2.7 D Magnesium 1.3 L Total Bilirubin 0.5 AST 359 H ALT 423 H Alkaline Phosphatase 105 Ammonia Total Protein 7.2 Albumin 2.7 L Phenytoin Hepatitis A IgM Ab Nonreactive Hep Bs Antigen Nonreactive Hep B Core IgM Ab Nonreactive Hep C IgG Ab Reactive H 07/20/18 07/20/18 07/20/18 16:54 21:17 21:27 WBC RBC Hgb Hct MCV MCH MCHC RDW Plt Count MPV Neut % (Auto) Lymph % (Auto) Roberts % (Auto) Eos % (Auto) Baso % (Auto) Neut # (Auto) Lymph # (Auto) Roberts # (Auto) Eos # (Auto) Baso # (Auto) WBC Differential Differential Comment Hematology Comments Sodium Potassium Chloride Carbon Dioxide Anion Gap BUN Creatinine Estimated GFR POC Glucose 150 H 133 H Random Glucose Calcium Phosphorus Magnesium 2.4 D Total Bilirubin AST ALT Alkaline Phosphatase Ammonia Total Protein Albumin Phenytoin Hepatitis A IgM Ab Hep Bs Antigen Hep B Core IgM Ab Hep C IgG Ab 07/21/18 07/21/18 07/21/18 00:26 03:45 03:45 WBC 9.3 RBC 4.24 Hgb 13.6 Hct 39.5 MCV 93.2 MCH 32.1 MCHC 34.4 RDW 17.7 H Plt Count 235 MPV 7.9 Neut % (Auto) 84.6 H Lymph % (Auto) 9.0 Roberts % (Auto) 6.3 Eos % (Auto) 0.0 Baso % (Auto) 0.1 Neut # (Auto) 7.9 H Lymph # (Auto) 0.8 L Roberts # (Auto) 0.6 Eos # (Auto) 0.0 Baso # (Auto) 0.0 WBC Differential . Differential Comment Auto diff final Hematology Comments Sodium 143 Potassium 3.4 L Chloride 109 H Carbon Dioxide 22.4 Anion Gap 12 BUN 31 H Creatinine 1.37 H Estimated GFR 38 L POC Glucose 128 H Random Glucose 118 H Calcium 7.5 L Phosphorus 2.9 Magnesium 2.2 Total Bilirubin 0.6 AST 202 H ALT 265 H Alkaline Phosphatase 90 Ammonia Total Protein 6.6 D Albumin 2.5 L Phenytoin Hepatitis A IgM Ab Hep Bs Antigen Hep B Core IgM Ab Hep C IgG Ab 07/21/18 07/21/18 07/21/18 03:49 06:06 08:12 WBC RBC Hgb Hct MCV MCH MCHC RDW Plt Count MPV Neut % (Auto) Lymph % (Auto) Roberts % (Auto) Eos % (Auto) Baso % (Auto) Neut # (Auto) Lymph # (Auto) Roberts # (Auto) Eos # (Auto) Baso # (Auto) WBC Differential Differential Comment Hematology Comments Sodium Potassium Chloride Carbon Dioxide Anion Gap BUN Creatinine Estimated GFR POC Glucose 116 H 112 H 100 Random Glucose Calcium Phosphorus Magnesium Total Bilirubin AST ALT Alkaline Phosphatase Ammonia Total Protein Albumin Phenytoin Hepatitis A IgM Ab Hep Bs Antigen Hep B Core IgM Ab Hep C IgG Ab 07/21/18 07/21/18 07/21/18 11:25 15:06 21:59 WBC RBC Hgb Hct MCV MCH MCHC RDW Plt Count MPV Neut % (Auto) Lymph % (Auto) Roberts % (Auto) Eos % (Auto) Baso % (Auto) Neut # (Auto) Lymph # (Auto) Roberts # (Auto) Eos # (Auto) Baso # (Auto) WBC Differential Differential Comment Hematology Comments Sodium Potassium Chloride Carbon Dioxide Anion Gap BUN Creatinine Estimated GFR POC Glucose 122 H 103 92 Random Glucose Calcium Phosphorus Magnesium Total Bilirubin AST ALT Alkaline Phosphatase Ammonia Total Protein Albumin Phenytoin Hepatitis A IgM Ab Hep Bs Antigen Hep B Core IgM Ab Hep C IgG Ab 07/22/18 07/22/18 07/22/18 00:12 03:11 05:44 WBC RBC Hgb Hct MCV MCH MCHC RDW Plt Count MPV Neut % (Auto) Lymph % (Auto) Roberts % (Auto) Eos % (Auto) Baso % (Auto) Neut # (Auto) Lymph # (Auto) Roberts # (Auto) Eos # (Auto) Baso # (Auto) WBC Differential . Differential Comment Hematology Comments Sodium Potassium Chloride Carbon Dioxide Anion Gap BUN Creatinine Estimated GFR POC Glucose 88 83 Random Glucose Calcium Phosphorus Magnesium Total Bilirubin AST ALT Alkaline Phosphatase Ammonia Total Protein Albumin Phenytoin Hepatitis A IgM Ab Hep Bs Antigen Hep B Core IgM Ab Hep C IgG Ab 07/22/18 07/22/18 07/22/18 05:45 05:45 11:02 WBC 10.9 RBC 4.24 Hgb 13.6 Hct 40.7 MCV 96.1 MCH 32.2 MCHC 33.5 RDW 18.5 H Plt Count 246 MPV 7.8 Neut % (Auto) 75.5 H Lymph % (Auto) 15.1 Roberts % (Auto) 9.1 H Eos % (Auto) 0.1 Baso % (Auto) 0.2 Neut # (Auto) 8.3 H Lymph # (Auto) 1.6 Roberts # (Auto) 1.0 H Eos # (Auto) 0.0 Baso # (Auto) 0.0 WBC Differential . Differential Comment Auto diff final Hematology Comments Sodium 151 H Potassium 4.7 D Chloride 120 H D Carbon Dioxide 17.0 L Anion Gap 14 BUN 47 H Creatinine 1.76 H Estimated GFR 28 L POC Glucose 84 Random Glucose 88 Calcium 7.9 L Phosphorus 4.1 D Magnesium 2.4 Total Bilirubin 0.6 AST 173 H ALT 179 H Alkaline Phosphatase 95 Ammonia Total Protein 6.8 Albumin 2.6 L Phenytoin 11.1 Hepatitis A IgM Ab Hep Bs Antigen Hep B Core IgM Ab Hep C IgG Ab 07/22/18 15:31 WBC RBC Hgb Hct MCV MCH MCHC RDW Plt Count MPV Neut % (Auto) Lymph % (Auto) Roberts % (Auto) Eos % (Auto) Baso % (Auto) Neut # (Auto) Lymph # (Auto) Roberts # (Auto) Eos # (Auto) Baso # (Auto) WBC Differential Differential Comment Hematology Comments Sodium Potassium Chloride Carbon Dioxide Anion Gap BUN Creatinine Estimated GFR POC Glucose 99 Random Glucose Calcium Phosphorus Magnesium Total Bilirubin AST ALT Alkaline Phosphatase Ammonia Total Protein Albumin Phenytoin Hepatitis A IgM Ab Hep Bs Antigen Hep B Core IgM Ab Hep C IgG Ab Result Diagrams: 07/22/18 05:45 07/22/18 05:45 Microbiology: Microbiology 07/18/18 17:05 Aerobic Blood Culture - Preliminary Blood - Peripheral No growth in 4 days Anaerobic Blood Culture - Preliminary No growth in 4 days 07/18/18 17:00 Aerobic Blood Culture - Preliminary Blood - Peripheral No growth in 4 days Anaerobic Blood Culture - Preliminary No growth in 4 days 07/19/18 04:26 Gram Stain - Final Sputum - Endotracheal Sputum Culture - Final Heavy growth normal respiratory lakesha 07/18/18 17:53 Urine Culture - Final Clean Catch Urine Escherichia coli Imaging: Chest CTA 07/18/18 17:48 CONCLUSION: 1. No evidence of pulmonary embolism. No filling defects are identified. 2. 2 fractures on the right are probably acute. There are number of other deformed ribs anteriorly on the left which are more likely chronic. Head CT 07/18/18 17:48 CONCLUSION: 1. Negative CT Head non contrast. . Abdomen Ultrasound 07/19/18 00:00 CONCLUSION: 1. Apparent small amount of sludge within the gallbladder with no definite stones. 2. The common bile duct appears mildly prominent at 8 mm. 3. The kidneys are small in size with no evidence of obstruction or focal lesion. Abdomen X-Ray 07/22/18 00:00 CONCLUSION: NG tube within the stomach, otherwise unremarkable two-view abdomen Chest X-Ray 07/22/18 06:00 CONCLUSION: No acute abnormality demonstrated. Procedures: * 07/18/18 - asystolic arrest x 2, intubated, central line placed. Assessment and Plan - Disease Oriented Problem List (1) Cardiac asystole (2) Respiratory failure (3) Anoxic encephalopathy (4) Ribs, multiple fractures (5) Elevated troponin (6) Cirrhosis (7) Seizure (8) Elevated LFTs (9) Acute kidney injury - Symptom Scale (1) Pain 0-10 Scale: Unable to quantify (2) Dyspnea 0-10 Scale: Unable to quantify Pertinent Non-Medical Issues: Psychosocial: 3 years ago. Has a recent "boyfriend" who has been staying with her. Has 1 adult daughter and 2 granddaughters, live local. Spiritual: Amish, non-practicing. May want Last Rights on 07/23/18. Legal:Patient is not capacitated to make her own health care decisions, uncertain if she will regain capacity. Single. Has 1 daughter. No written advance directives. According to [place] statutes, health care proxy decision making falls to her daughter. Ethical issues impacting care: None. Important Contacts: * Evelia Lopez, dtr/ hcp: [phone] Prognosis: Discussed with Dr. Ag and Dr. Sparrow, plan to hold sedation to better evaluate neurologic status. EEG pending. If no improvement in neurologic status when off sedation, prognosis would be poor for meaningful recovery. Code Status: No Code DNR Plan: * Patient is not capacitated to make her own health care decisions, uncertain if she will regain capacity. Single. Has 1 daughter. No written advance directives. According to [place] statutes, health care proxy decision making falls to her daughter. * NO CODE - Daughter, Evelia indicates she wants to sign the DNR order, [place] DNR order completed and order placed in EMR. * Goals remain aggressive at this time short of DNR, she seems to be thinking about transition to comfort, not there yet. Spoke with daughter and friend at bedside. Medical update provided. Reviewed plan for Daughter is asking about possible withdrawal of life support. Provided anticipatory guidance. She wants to speak with family and friends again tonight. She asks if I can have a plate put in worker come to give last rights tomorrow, offered plate put in worker visit today she tells me "I am not ready for this tonight." Offered family meeting 07/23/18 to meet with her and other family members, she will let me know if they can come tomorrow. Offered support. Questions answered. * Spiritual: Amish, non-practicing. May want Last Rights on 07/23/18. * Letter provided for daughter regaring critical condition of patient for work. * SYMPTOMS: Pain and dyspnea: currently sedated on mech vent, no obvious signs of pain or SOB. No new medication recommendations at this time. * Palliative care will continue to follow to assist with symptom management and clarification of medical treatment goals. Attestation Attestation: To help prompt me to consider important information that might be impacting today's encounter and assessment, information from prior notes written by myself or my colleagues may have been "brought forward" into today's note. My signature on this note, however, is an attestation that I personally performed the exam, history, and/or decision-making noted today, and, unless otherwise indicated, the interactions with patient, family, and staff as well as the review of records all occurred today. I also attest that the listed assessment and stated plan reflect my best clinical judgment today based on the combination of historical information, prior notes, and today's exam/ interactions. When time spent is documented, it refers only to time spent today by the signer, or if indicated, combined time spent today by collaborating physician/nurse practitioner.
[2018-07-23] MEDS: Piperacil/Tazo 2.25 GM Premix 50 ML IV.SIG SCH ×4 (01:34→17:20)
[2018-07-23] MEDS: Insulin NovoLIN Regular Correctional Sugar Inj SQ SCH ×6 (01:34→21:43)
[2018-07-23] MEDS: Oral Hygiene Kit OROPHARYNG SCH ×4 (01:34→17:19)
[2018-07-23] MEDS: Artificial Tears Opth Drops 15 ML Bottle EACH EYE SCH ×3 (01:35→17:19)
[2018-07-23] MEDS: Chlorhexidine Gluconate 2% 1 Pack (2 Cloths) TOPICAL SCH (03:21)
--- NOTE | 2018-07-23 04:00 | XR ---
EXAM DATE: 07/23/2018 3:44 AM EDT AGE/SEX: 73 years / Female INDICATIONS: Shortness of breath, possible pulmonary disease. CLINICAL DATA: This is the patient's subsequent encounter. Patient reports that signs and symptoms h ave been present for 4 - 6 days and indicates a pain score of Nonresponsive. MEDICAL/SURGICAL HISTORY: . Gastroesophageal reflux disease. Hypertension. Hyperthyroidism. A ppendectomy. COMPARISON: [facility], CHEST 1V SINGLE AP, 07/22/2018. . FINDINGS: The cardiac silhouette is enlarged in transverse diameter. Support lines and tubes are in satisfactor y position. The lungs are free of acute parenchymal opacity. No pulmonary nodules or pleural effusion s are identified. CONCLUSION: Electronically signed by: Nelson Rodriguez MD 07/23/2018 3:59 AM EDT
[2018-07-23 06:02] LABS: Baso # (Auto) 0.1 th/mm3 (0.0-0.2); Baso % (Auto) 0.3 % (0.0-2.0); Hematocrit 39.2 % (35.0-46.0); Lymph # (Auto) 3.6 th/mm3 (1.0-4.8); Lymph % (Auto) 20.2 % (9.0-44.0); Mean Corpuscular HGB Conc 33.3 % (32.0-36.0); Mean Corpuscular Hemoglobin 32.1 pg (27.0-34.0); Mean Corpuscular Volume 96.5 fL (80.0-100.0); Mono # (Auto) 1.9 th/mm3 (0.0-0.9); Mono % (Auto) 10.7 % (0.0-8.0); Neut # (Auto) 12.1 th/mm3 (1.8-7.7); Neut % (Auto) 68.8 % (16.0-70.0); Platelet Count 218 th/mm3 (150-450); Red Blood Count 4.06 mil/mm3 (4.00-5.30); Red Cell Distribution Width 18.7 % (11.6-17.2); White Blood Count 17.6 th/mm3 (4.0-11.0)
[2018-07-23] MEDS: Fosphenytoin Inj 100 MGPE in Sodium Chlor 0.9% Inj 50 ML IV.SIG SCH ×3 (06:20→21:45)
[2018-07-23 06:42] LABS: Alanine Aminotransferase 131 U/L (10-53); Albumin 2.4 g/dL (3.4-5.0); Alkaline Phosphatase 91 U/L (45-117); Anion Gap 11 meq/L (5-15); Aspartate Aminotransferase 218 U/L (15-37); Blood Urea Nitrogen 49 mg/dL (7-18); Calcium 7.9 mg/dL (8.5-10.1); Carbon Dioxide 20.8 meq/L (21.0-32.0); Chloride 117 meq/L (98-107); Creatine Kinase 2112 U/L (26-192); Glomerular Filtration Rate 25 mL/min (>89); Glucose,Random 69 mg/dL (74-106); Magnesium 2.6 mg/dL (1.5-2.5); Sodium 149 meq/L (136-145); Total Protein 6.6 g/dL (6.4-8.2)
[2018-07-23 06:58] LABS: Potassium 4.7 meq/L (3.5-5.1)
[2018-07-23 07:25] LABS: CKMB Percent 0.5 % (0.0-4.0); Creatine Kinase MB 11.1 ng/mL (0.5-3.6)
[2018-07-23 07:37] LABS: Lymphocytes 18 % (9-44); Monocytes 9 % (0-8)
[2018-07-23 07:38] LABS: Platelet Estimate Normal (Normal); Platelet Morphology Normal (Normal)
--- NOTE | 2018-07-23 08:05 | P.PNCC ---
Subjective Subjective Remarks/Hospital Course: 73-year-old female with past medical history of hypertension, GERD, hypothyroidism, alcohol dependence, chronic pain on methadone, depression who presented to [facility] following asystolic cardiac arrest. She had last been seen normal about 2-1/2 hours prior. Her boyfriend came home and found her unresponsive. When EVAC arrived she was in asystole. She had a large amount of black emesis at the scene. CPR was initiated and she was given epinephrine x2 and bicarb and had ROSC. Combitube was placed. Had a second cardiac arrest. She was intubated in the emergency department. She was initially hypotensive and was started on Levophed. CT brain was negative for acute abnormality. CT chest demonstrates multiple right-sided rib fractures. There is no pulmonary embolism. EKG has no ST elevation. Troponin 0 0.11. Her daughter states she was having a cough and spitting up some phlegm yesterday. She drinks a bottle of vodka daily. She has been depressed since her 3 years ago. Her daughter is her only child. She has no advanced directive. 07/19 Patient is sedated with Diprivan and intubated. Unresponsive. 07/20 Patient is off sedation unresponsive. On Protonix drip. Afebrile. 07/21: Remains unresponsive. T-max 99.3 remains on pantoprazole drip. Hemodynamically stable. Hemoglobin stable. SUBJECTIVE: 07/22: Afebrile. No bowel movement overnight. KUB pending. EEG revealed acute encephalopathy versus anoxic injury. Supportive care at the present time ongoing. 07/23 Patient remains intubated and unresponsive. T:100.9 last night. Objective Vital Signs / I&O: Vital Signs 07/22/18 08:00 07/22/18 08:29 07/22/18 08:35 Temperature 99.5 F Pulse Rate 79 90 Respiratory Rate 25 H 24 24 Blood Pressure 140/61 Pulse Oximetry 94 L 96 07/22/18 09:00 07/22/18 10:00 07/22/18 11:00 Temperature 99.7 F H 99.5 F Pulse Rate 85 82 82 Respiratory Rate 31 H 28 H 25 H Blood Pressure 151/70 H 157/66 H 145/82 H Pulse Oximetry 97 99 100 07/22/18 11:24 07/22/18 12:00 07/22/18 13:00 Temperature 99.1 F Pulse Rate 84 87 Respiratory Rate 24 24 23 Blood Pressure 139/78 124/60 Pulse Oximetry 100 99 98 07/22/18 14:00 07/22/18 14:55 07/22/18 15:00 Temperature Pulse Rate 84 85 86 Respiratory Rate 22 21 22 Blood Pressure 135/64 141/67 H Pulse Oximetry 98 98 07/22/18 15:56 07/22/18 16:00 07/22/18 17:00 Temperature 99.1 F Pulse Rate 87 91 H Respiratory Rate 22 22 23 Blood Pressure 139/63 137/61 Pulse Oximetry 99 99 99 07/22/18 18:00 07/22/18 19:00 07/22/18 19:38 Temperature Pulse Rate 90 90 91 H Respiratory Rate 21 20 21 Blood Pressure 122/59 L 139/63 Pulse Oximetry 98 98 98 07/22/18 20:00 07/22/18 21:00 07/22/18 22:00 Temperature 100.9 F H Pulse Rate 93 H 95 H 92 H Respiratory Rate 19 19 19 Blood Pressure 150/63 H 131/59 L 94/53 L Pulse Oximetry 98 99 99 07/22/18 23:00 07/23/18 00:00 07/23/18 01:00 Temperature 99.9 F H Pulse Rate 80 79 83 Respiratory Rate 16 16 16 Blood Pressure 117/54 L 115/57 L 121/56 L Pulse Oximetry 97 97 97 07/23/18 01:24 07/23/18 02:00 07/23/18 03:00 Temperature Pulse Rate 84 87 Respiratory Rate 16 24 16 Blood Pressure 130/64 140/71 Pulse Oximetry 98 99 100 07/23/18 03:23 07/23/18 04:00 07/23/18 04:27 Temperature 99.9 F H Pulse Rate 89 91 H Respiratory Rate 17 18 20 Blood Pressure 133/63 Pulse Oximetry 97 96 Intake & Output 07/22/18 07/23/18 07/23/18 18:59 06:59 18:59 Intake Total 798 / 798 1297 / 1297 102 / 102 Output Total 700 / 700 375 / 375 Balance 98 / 98 922 / 922 102 / 102 Weight 77 kg Intake: IV 358 / 358 102 / 102 102 / 102 Protonix Inj 80 MG In NS Inj 30 / 30 100 ML @ 10 mls/hr IV.CONT Q10H [facility] Rx#:[id number] NS Inj 1,000 ML @ 84 mls/hr IV. 75 / 75 CONT .[id number] SUNITA Rx#: [id number] Cerebyx Inj 100 MGPE In NS Inj 52 / 52 52 / 52 52 / 52 50 ML @ 208 mls/hr IV.SIG Q8HR [facility] Rx#:[id number] Zosyn 2.25 GM Premix 50 ML @ 100 / 100 50 / 50 50 / 50 100 mls/hr IV.SIG Q6H SUNITA Rx#: [id number] Thiamine Inj 100 MG In NS Inj 101 / 101 100 ML @ 100 mls/hr IV.SIG DAILY SUNITA Rx#:[id number] Tube Feeding 40 / 40 795 / 795 Water Bolus Amount 400 / 400 400 / 400 Output: Urine 500 / 500 375 / 375 Stool 200 / 200 0 / 0 Pleural Fluid 0 / 0 Peritoneal Amount 0 / 0 Gastric Drainage 0 / 0 Orogastric Tube 0 / 0 Other: Date of Last Bowel Movement 07/22/18 07/23/18 # Incontinent Bowel Movements 2 0 Result Diagrams: 07/23/18 04:37 07/23/18 04:37 Other Results: Laboratory Results - last 12 hr 07/22/18 07/23/18 07/23/18 20:40 01:20 03:18 WBC RBC Hgb Hct MCV MCH MCHC RDW Plt Count MPV Prelim Diff (Auto) Neut % (Auto) Lymph % (Auto) [place] % (Auto) Eos % (Auto) Baso % (Auto) Neut # (Auto) Lymph # (Auto) [place] # (Auto) Eos # (Auto) Baso # (Auto) WBC Differential Seg Neuts % (Manual) Band Neuts % (Manual) Lymphocytes % (Manual) Monocytes % (Manual) Abs Neuts (Manual) Differential Comment Platelet Estimate Platelet Morphology Sodium Potassium Chloride Carbon Dioxide Anion Gap BUN Creatinine Estimated GFR POC Glucose 85 89 83 Random Glucose Calcium Phosphorus Magnesium Total Bilirubin AST ALT Alkaline Phosphatase Total Creatine Kinase CK-MB (CK-2) CK-MB (CK-2) % Total Protein Albumin 07/23/18 07/23/18 04:37 04:37 WBC 17.6 H D RBC 4.06 Hgb 13.0 Hct 39.2 MCV 96.5 MCH 32.1 MCHC 33.3 RDW 18.7 H Plt Count 218 MPV 8.0 Prelim Diff (Auto) Slide review pending Neut % (Auto) 68.8 Lymph % (Auto) 20.2 [place] % (Auto) 10.7 H Eos % (Auto) 0.0 Baso % (Auto) 0.3 Neut # (Auto) 12.1 H Lymph # (Auto) 3.6 [place] # (Auto) 1.9 H Eos # (Auto) 0.0 Baso # (Auto) 0.1 WBC Differential Manual diff final Seg Neuts % (Manual) 69 Band Neuts % (Manual) 4 Lymphocytes % (Manual) 18 Monocytes % (Manual) 9 H Abs Neuts (Manual) 12.8 H Differential Comment . Platelet Estimate Normal Platelet Morphology Normal Sodium 149 H Potassium 4.7 Chloride 117 H Carbon Dioxide 20.8 L Anion Gap 11 BUN 49 H Creatinine 1.98 H Estimated GFR 25 L POC Glucose Random Glucose 69 L Calcium 7.9 L Phosphorus 4.0 Magnesium 2.6 H Total Bilirubin 0.7 AST 218 H ALT 131 H Alkaline Phosphatase 91 Total Creatine Kinase 2112 H CK-MB (CK-2) 11.1 H CK-MB (CK-2) % 0.5 Total Protein 6.6 Albumin 2.4 L Imaging: Chest CTA 07/18/18 17:48 CONCLUSION: 1. No evidence of pulmonary embolism. No filling defects are identified. 2. 2 fractures on the right are probably acute. There are number of other deformed ribs anteriorly on the left which are more likely chronic. Head CT 07/18/18 17:48 CONCLUSION: 1. Negative CT Head non contrast. . Abdomen Ultrasound 07/19/18 00:00 CONCLUSION: 1. Apparent small amount of sludge within the gallbladder with no definite stones. 2. The common bile duct appears mildly prominent at 8 mm. 3. The kidneys are small in size with no evidence of obstruction or focal lesion. Abdomen X-Ray 07/22/18 00:00 CONCLUSION: NG tube within the stomach, otherwise unremarkable two-view abdomen Chest X-Ray 07/23/18 06:00 CONCLUSION: Objective Remarks: GENERAL: Patient is 73 yo intubated unresponsive SKIN: Warm and dry. HEAD: Normocephalic. EYES: No scleral icterus. No injection or drainage. NECK: Supple, trachea midline. No JVD or lymphadenopathy. CARDIOVASCULAR: Regular rate and rhythm without murmurs, gallops, or rubs. RESPIRATORY: Breath sounds equal bilaterally. No accessory muscle use. GASTROINTESTINAL: Abdomen soft, non-tender, nondistended. MUSCULOSKELETAL: No cyanosis, or edema. Neuro: Intubated, unresponsive. No cough, gag reflex. Assessment and Plan - Assessment and Plan Plan: NEURO: Coma Anoxic encephalopathy Seizure Alcohol dependence Acute alcohol intoxication upon presentation Fosphenytoin load and 100 mg PE q8 hours. Dilantin level 11.1 on 07/22 Off sedation EEG: Diffuse slowing of background seen with diffuse cerebral dysfunction, possibly with an anoxia. No epileptiform features. CT brain no acute abnormality. Thiamine/multivitamin/folic acid supplementation. Neuro is following- Dr. Sparrow RESP: Acute hypoxic respiratory failure Multiple rib fractures PRVC. Ventilator bundle. Neuro status prevents extubation Continue with vent support keep sats >92% Bronchodilators, ICU vent bundle. CXR: No infiltrates or effusions CV: Asystolic cardiac arrest Hypotension postarrest (resolved) Hypertension Elevated troponin - likely demand ischemia following respiratory arrest Monitor HR and BP keep MAP>65mmHg On Lopressor 50mg BID for BP control. 2D echo to eval LV function: EF 55-60% GI: Vomiting Diarrhea present on admission Cirrhosis Elevated LFT's...trending down Ischemic hepatitis versus acute alcoholic hepatitis Hyperammonemia Hep C AB + On Jevity 1.5@10ml/hr advance as gianluca Lansoprazole 30 mg daily Monitor LFT's US liver: small amount of sludge within the gallbladder with no definite stones. The common bile duct appears mildly prominent at 8 mm. Hepatitis profile - neg. Rifaximin 550 mg p.o. twice daily and lactulose 30 cc 4 times daily. Recheck ammonia level in a.m. 07/22 FEN/RENAL: Hyper Na+ Acute kidney injury- Periwick in place. Monitor intake and output. Monitor electrolytes and replace as indicated. Monitor renal function, avoid nephrotoxins Change IVF D5W@60ml/hr, monitor sodium level on Free water 200ml Q6 ID: E. coli UTI present on admission 07/18 BC, 07/19 sputum cx: No growth Pipracil/tazobactam 2.25 g IV every 6 hours HEME: Monitor CBC. Transfuse as needed for Hgb < 7. ENDO: Acute hyperglycemia Monitor bedside glucose every 4 hours and administer low-dose insulin sliding scale as indicated. PROPH: SCDs for DVT prophylaxis. Pharmacologic DVT prophylaxis contraindicated due to GI bleeding. Lansoprazole GI prophylaxis Palliative care is following Full code Level 3
[2018-07-23] MEDS: Folic Acid 1 MG Tablet PO SCH (09:06)
[2018-07-23] MEDS: Chlorhexidine 0.12% Oral Kit 15 ML UDC OROPHARYNG SCH ×2 (09:06→21:44)
[2018-07-23] MEDS: Thiamine Inj 100 MG in Sodium Chlor 0.9% Inj 100 ML IV.SIG SCH (09:07)
[2018-07-23] MEDS: Metoprolol Tartrate 25 MG Tablet PO SCH ×2 (09:07→21:44)
[2018-07-23] MEDS: rifAXIMin 550 MG Tablet NG/OG SCH ×2 (09:07→21:45)
[2018-07-23] MEDS: Senna/Docusate Sodium 8.6/50 MG Tablet PO SCH ×2 (09:07→21:45)
[2018-07-23] MEDS: Polyethylene Glycol 3350 17 GM Packet PO SCH ×2 (09:08→21:44)
[2018-07-23] MEDS: Dextrose 5% in Water Inj 1,000 ML IV.CONT SCH (09:35)
--- NOTE | 2018-07-23 16:20 | P.PNPAL ---
Went by to see if family was at bedside, daughter just left. Nurse indicates Evelia (dtr/HCS) was going to call me. I am going to wait to see if she is will call me, I am not certain she really wants to speak with me today. She has my cell phone number. Nurse indicates daughter keeps hoping for recovery.
[2018-07-23] MEDS ORDERED: Sod Chloride 0.9% Inj 1,000 ML IV.SIG ONE (20:00)
[2018-07-23] MEDS: Labetalol HCl Inj 100 MG/20 ML Vial IV.PUSH PRN (22:14)
[2018-07-24] MEDS: Insulin NovoLIN Regular Correctional Sugar Inj SQ SCH ×7 (01:05→23:49)
[2018-07-24] MEDS: Artificial Tears Opth Drops 15 ML Bottle EACH EYE SCH ×3 (01:06→18:15)
[2018-07-24] MEDS: Piperacil/Tazo 2.25 GM Premix 50 ML IV.SIG SCH ×5 (01:06→23:55)
[2018-07-24] MEDS: Oral Hygiene Kit OROPHARYNG SCH ×5 (01:06→23:49)
[2018-07-24] MEDS: Dextrose 5% in Water Inj 1,000 ML IV.CONT SCH ×2 (01:06→18:16)
[2018-07-24 05:04] LABS: Baso % (Auto) 0.1 % (0.0-2.0); Eos % (Auto) 0.2 % (0.0-4.0); Hemoglobin 13.1 gm/dL (11.6-15.3); Lymph # (Auto) 1.4 th/mm3 (1.0-4.8); Mean Corpuscular HGB Conc 32.8 % (32.0-36.0); Mean Corpuscular Hemoglobin 31.5 pg (27.0-34.0); Mean Corpuscular Volume 96.1 fL (80.0-100.0); Mono % (Auto) 6.4 % (0.0-8.0); Neut # (Auto) 12.7 th/mm3 (1.8-7.7); Neut % (Auto) 84.3 % (16.0-70.0); Platelet Count 231 th/mm3 (150-450); Red Blood Count 4.17 mil/mm3 (4.00-5.30); Red Cell Distribution Width 17.8 % (11.6-17.2); White Blood Count 15.1 th/mm3 (4.0-11.0)
[2018-07-24 05:43] LABS: Alanine Aminotransferase 103 U/L (10-53); Albumin 2.5 g/dL (3.4-5.0); Alkaline Phosphatase 94 U/L (45-117); Anion Gap 9 meq/L (5-15); Aspartate Aminotransferase 143 U/L (15-37); Blood Urea Nitrogen 38 mg/dL (7-18); Calcium 8.3 mg/dL (8.5-10.1); Carbon Dioxide 21.5 meq/L (21.0-32.0); Chloride 115 meq/L (98-107); Glomerular Filtration Rate 33 mL/min (>89); Glucose,Random 144 mg/dL (74-106); Magnesium 2.2 mg/dL (1.5-2.5); Phosphorus 2.5 mg/dL (2.5-4.9); Potassium 3.9 meq/L (3.5-5.1); Sodium 145 meq/L (136-145); Total Protein 6.9 g/dL (6.4-8.2)
[2018-07-24] MEDS: Fosphenytoin Inj 100 MGPE in Sodium Chlor 0.9% Inj 50 ML IV.SIG SCH ×3 (06:12→21:55)
--- NOTE | 2018-07-24 07:37 | P.PNCC ---
Subjective Subjective Remarks/Hospital Course: 73-year-old female with past medical history of hypertension, GERD, hypothyroidism, alcohol dependence, chronic pain on methadone, depression who presented to [facility] following asystolic cardiac arrest. She had last been seen normal about 2-1/2 hours prior. Her boyfriend came home and found her unresponsive. When EVAC arrived she was in asystole. She had a large amount of black emesis at the scene. CPR was initiated and she was given epinephrine x2 and bicarb and had ROSC. Combitube was placed. Had a second cardiac arrest. She was intubated in the emergency department. She was initially hypotensive and was started on Levophed. CT brain was negative for acute abnormality. CT chest demonstrates multiple right-sided rib fractures. There is no pulmonary embolism. EKG has no ST elevation. Troponin 0 0.11. Her daughter states she was having a cough and spitting up some phlegm yesterday. She drinks a bottle of vodka daily. She has been depressed since her 3 years ago. Her daughter is her only child. She has no advanced directive. 07/19 Patient is sedated with Diprivan and intubated. Unresponsive. 07/20 Patient is off sedation unresponsive. On Protonix drip. Afebrile. 07/21: Remains unresponsive. T-max 99.3 remains on pantoprazole drip. Hemodynamically stable. Hemoglobin stable. SUBJECTIVE: 07/22: Afebrile. No bowel movement overnight. KUB pending. EEG revealed acute encephalopathy versus anoxic injury. Supportive care at the present time ongoing. 07/23 Patient remains intubated and unresponsive. T:100.9 last night. 07/24 No events overnight. Intubated and unresponsive. Afebrile. Objective Vital Signs / I&O: Vital Signs 07/23/18 08:00 07/23/18 09:00 07/23/18 09:20 Temperature 98.9 F Pulse Rate 93 H 96 H 108 H Respiratory Rate 16 17 24 Blood Pressure 126/60 141/65 H Pulse Oximetry 97 99 07/23/18 10:00 07/23/18 11:00 07/23/18 12:00 Temperature Pulse Rate 86 85 85 Respiratory Rate 16 16 16 Blood Pressure 117/57 L 109/56 L 108/59 L Pulse Oximetry 100 98 96 07/23/18 12:19 07/23/18 13:00 07/23/18 14:00 Temperature Pulse Rate 79 74 Respiratory Rate 16 10 L 16 Blood Pressure 87/52 L 85/52 L Pulse Oximetry 96 97 97 07/23/18 14:36 07/23/18 14:52 07/23/18 15:00 Temperature Pulse Rate 72 69 71 Respiratory Rate 16 16 16 Blood Pressure 91/53 L 101/58 L Pulse Oximetry 97 97 07/23/18 15:58 07/23/18 16:00 07/23/18 18:00 Temperature 97.7 F Pulse Rate 73 80 Respiratory Rate 17 16 16 Blood Pressure 99/57 L 130/70 Pulse Oximetry 99 95 96 07/23/18 19:53 07/23/18 20:00 07/23/18 21:50 Temperature 97.5 F L Pulse Rate 83 83 91 H Respiratory Rate 16 20 Blood Pressure 173/83 H Pulse Oximetry 97 97 07/23/18 22:00 07/23/18 22:11 07/23/18 22:16 Temperature Pulse Rate 81 70 69 Respiratory Rate 17 18 18 Blood Pressure 201/95 H 131/66 84/50 L Pulse Oximetry 98 98 97 07/23/18 22:30 07/23/18 22:45 07/23/18 23:00 Temperature Pulse Rate 69 69 74 Respiratory Rate 22 16 21 Blood Pressure 91/55 L 126/68 176/80 H Pulse Oximetry 98 98 99 07/23/18 23:15 07/23/18 23:30 07/23/18 23:45 Temperature Pulse Rate 72 72 74 Respiratory Rate 16 17 16 Blood Pressure 145/65 H 109/63 164/80 H Pulse Oximetry 99 99 99 07/24/18 00:00 07/24/18 00:15 07/24/18 00:30 Temperature 98.0 F Pulse Rate 73 73 74 Respiratory Rate 16 16 16 Blood Pressure 156/77 H 143/66 H 133/74 Pulse Oximetry 99 99 98 07/24/18 00:45 07/24/18 01:00 07/24/18 01:15 Temperature Pulse Rate 75 75 76 Respiratory Rate 16 14 17 Blood Pressure 138/76 154/65 H 149/68 H Pulse Oximetry 98 98 98 07/24/18 01:30 07/24/18 01:45 07/24/18 02:00 Temperature Pulse Rate 83 81 80 Respiratory Rate 18 24 22 Blood Pressure 200/95 H 156/98 H 158/73 H Pulse Oximetry 100 96 96 07/24/18 02:15 07/24/18 02:30 07/24/18 02:45 Temperature Pulse Rate 81 82 82 Respiratory Rate 21 18 18 Blood Pressure 161/77 H 159/81 H 165/83 H Pulse Oximetry 97 97 98 07/24/18 03:00 07/24/18 03:15 07/24/18 03:27 Temperature Pulse Rate 84 84 85 Respiratory Rate 18 21 19 Blood Pressure 155/79 H 152/74 H Pulse Oximetry 98 98 07/24/18 03:30 07/24/18 03:45 07/24/18 04:00 Temperature 98.9 F Pulse Rate 85 89 89 Respiratory Rate 21 21 19 Blood Pressure 148/72 H 155/78 H 142/68 H Pulse Oximetry 98 99 99 07/24/18 04:15 07/24/18 04:30 07/24/18 04:45 Temperature Pulse Rate 90 92 H 92 H Respiratory Rate 19 20 18 Blood Pressure 144/74 H 142/75 H 137/73 Pulse Oximetry 99 98 99 07/24/18 05:00 07/24/18 05:15 07/24/18 05:30 Temperature Pulse Rate 93 H 92 H 93 H Respiratory Rate 19 17 19 Blood Pressure 131/72 125/66 122/69 Pulse Oximetry 99 99 99 07/24/18 05:45 07/24/18 06:00 Temperature Pulse Rate 92 H 93 H Respiratory Rate 17 19 Blood Pressure 113/64 123/69 Pulse Oximetry 98 99 Intake & Output 07/23/18 07/24/18 07/24/18 18:59 06:59 18:59 Intake Total 1920 / 1920 2222 / 2222 Output Total 1100 / 1100 2150 / 2150 Balance 820 / 820 72 / 72 Weight 76.5 kg Intake: IV 1155 / 1155 1102 / 1102 D5W Inj 1,000 ML @ 60 mls/hr IV 1000 / 1000 .CONT .[id number] [facility] Rx#:[id number] Sodium Chloride 23.4% Inj 38.5 800 / 800 MEQ In Sterile Water for Inj 1, 000 ML @ 42 mls/hr IV.CONT . Q24H [facility] Rx#:[id number] Cerebyx Inj 100 MGPE In NS Inj 104 / 104 52 / 52 50 ML @ 208 mls/hr IV.SIG Q8HR [facility] Rx#:[id number] Zosyn 2.25 GM Premix 50 ML @ 150 / 150 50 / 50 100 mls/hr IV.SIG Q6H [facility] Rx#: [id number] Thiamine Inj 100 MG In NS Inj 101 / 101 100 ML @ 100 mls/hr IV.SIG DAILY [facility]ITA Rx#:[id number] Tube Feeding 185 / 185 600 / 600 Tube Irrigant 180 / 180 120 / 120 Water Bolus Amount 400 / 400 400 / 400 Output: Urine 800 / 800 1850 / 1850 Stool 300 / 300 300 / 300 Pleural Fluid 0 / 0 Peritoneal Amount 0 / 0 Gastric Drainage 0 / 0 Orogastric Tube 0 / 0 Other: Date of Last Bowel Movement 07/23/18 07/23/18 # Incontinent Bowel Movements 0 Result Diagrams: 07/24/18 04:35 07/24/18 04:35 Other Results: Laboratory Results - last 12 hr 07/23/18 07/24/18 07/24/18 19:32 00:41 04:35 WBC 15.1 H RBC 4.17 Hgb 13.1 Hct 40.0 MCV 96.1 MCH 31.5 MCHC 32.8 RDW 17.8 H Plt Count 231 MPV 8.0 Neut % (Auto) 84.3 H Lymph % (Auto) 9.0 [place] % (Auto) 6.4 Eos % (Auto) 0.2 Baso % (Auto) 0.1 Neut # (Auto) 12.7 H Lymph # (Auto) 1.4 [place] # (Auto) 1.0 H Eos # (Auto) 0.0 Baso # (Auto) 0.0 WBC Differential . Differential Comment Auto diff final Sodium Potassium Chloride Carbon Dioxide Anion Gap BUN Creatinine Estimated GFR POC Glucose 173 H 178 H Random Glucose Calcium Phosphorus Magnesium Total Bilirubin AST ALT Alkaline Phosphatase Total Protein Albumin 07/24/18 07/24/18 04:35 05:54 WBC RBC Hgb Hct MCV MCH MCHC RDW Plt Count MPV Neut % (Auto) Lymph % (Auto) [place] % (Auto) Eos % (Auto) Baso % (Auto) Neut # (Auto) Lymph # (Auto) [place] # (Auto) Eos # (Auto) Baso # (Auto) WBC Differential Differential Comment Sodium 145 Potassium 3.9 D Chloride 115 H Carbon Dioxide 21.5 Anion Gap 9 BUN 38 H Creatinine 1.56 H Estimated GFR 33 L POC Glucose 128 H Random Glucose 144 H Calcium 8.3 L Phosphorus 2.5 D Magnesium 2.2 Total Bilirubin 0.5 AST 143 H ALT 103 H Alkaline Phosphatase 94 Total Protein 6.9 Albumin 2.5 L Imaging: Chest CTA 07/18/18 17:48 CONCLUSION: 1. No evidence of pulmonary embolism. No filling defects are identified. 2. 2 fractures on the right are probably acute. There are number of other deformed ribs anteriorly on the left which are more likely chronic. Head CT 07/18/18 17:48 CONCLUSION: 1. Negative CT Head non contrast. . Abdomen Ultrasound 07/19/18 00:00 CONCLUSION: 1. Apparent small amount of sludge within the gallbladder with no definite stones. 2. The common bile duct appears mildly prominent at 8 mm. 3. The kidneys are small in size with no evidence of obstruction or focal lesion. Abdomen X-Ray 07/22/18 00:00 CONCLUSION: NG tube within the stomach, otherwise unremarkable two-view abdomen Chest X-Ray 07/23/18 06:00 CONCLUSION: Objective Remarks: GENERAL: Patient is 73 yo intubated unresponsive SKIN: Warm and dry. HEAD: Normocephalic. EYES: No scleral icterus. No injection or drainage. NECK: Supple, trachea midline. No JVD or lymphadenopathy. CARDIOVASCULAR: Regular rate and rhythm without murmurs, gallops, or rubs. RESPIRATORY: Breath sounds equal bilaterally. No accessory muscle use. GASTROINTESTINAL: Abdomen soft, non-tender, nondistended. MUSCULOSKELETAL: No cyanosis, or edema. Neuro: Intubated, unresponsive. No cough, gag reflex. Assessment and Plan - Assessment and Plan Plan: NEURO: Coma Anoxic encephalopathy Seizure Alcohol dependence Acute alcohol intoxication upon presentation Fosphenytoin load and 100 mg PE q8 hours. Dilantin level 11.1 on 07/22 Off sedation EEG: Diffuse slowing of background seen with diffuse cerebral dysfunction, possibly with an anoxia. No epileptiform features. CT brain no acute abnormality. Thiamine/multivitamin/folic acid supplementation. Neuro is following- Dr. Sparrow RESP: Acute hypoxic respiratory failure Multiple rib fractures PRVC. Ventilator bundle. Neuro status prevents extubation Continue with vent support keep sats >92% Bronchodilators, ICU vent bundle. CXR: No infiltrates or effusions CV: Asystolic cardiac arrest Hypotension postarrest (resolved) Hypertension Elevated troponin - likely demand ischemia following respiratory arrest Monitor HR and BP keep MAP>65mmHg On Lopressor 50mg BID for BP control. 2D echo to eval LV function: EF 55-60% GI: Vomiting Diarrhea present on admission Cirrhosis Elevated LFT's...trending down Ischemic hepatitis versus acute alcoholic hepatitis Hyperammonemia Hep C AB + On Jevity 1.5@40ml/hr Lansoprazole 30 mg daily Monitor LFT's US liver: small amount of sludge within the gallbladder with no definite stones. The common bile duct appears mildly prominent at 8 mm. Hepatitis profile - neg. Rifaximin 550 mg p.o. twice daily and lactulose 30 cc 4 times daily. Recheck ammonia level in a.m. 07/22 FEN/RENAL: Hyper Na+ Acute kidney injury- Periwick in place. Monitor intake and output. Monitor electrolytes and replace as indicated. Monitor renal function, avoid nephrotoxins IVF D5W@60ml/hr, monitor sodium level. Radha function is improving Cr: 1.56 today from 1.98 on Free water 200ml Q6 ID: E. coli UTI present on admission 07/18 BC, 07/19 sputum cx: No growth Pipracil/tazobactam 2.25 g IV every 6 hours HEME: Monitor CBC. Transfuse as needed for Hgb < 7. ENDO: Acute hyperglycemia Monitor bedside glucose every 4 hours and administer low-dose insulin sliding scale as indicated. PROPH: SCDs for DVT prophylaxis. Pharmacologic DVT prophylaxis contraindicated due to GI bleeding. Lansoprazole GI prophylaxis Palliative care is following Full code Level 3
[2018-07-24] MEDS: Metoprolol Tartrate 25 MG Tablet PO SCH (08:33)
[2018-07-24] MEDS: Chlorhexidine 0.12% Oral Kit 15 ML UDC OROPHARYNG SCH ×2 (08:33→20:17)
[2018-07-24] MEDS: Senna/Docusate Sodium 8.6/50 MG Tablet PO SCH ×2 (08:34→20:19)
[2018-07-24] MEDS: Folic Acid 1 MG Tablet PO SCH (08:34)
[2018-07-24] MEDS: rifAXIMin 550 MG Tablet NG/OG SCH ×2 (08:35→20:19)
[2018-07-24] MEDS: Thiamine Inj 100 MG in Sodium Chlor 0.9% Inj 100 ML IV.SIG SCH (08:38)
[2018-07-24] MEDS: Polyethylene Glycol 3350 17 GM Packet PO SCH ×2 (11:14→20:19)
--- NOTE | 2018-07-24 13:17 | P.PN ---
Subjective Interval history: has been off sedation for a few days intub vent. no change in neuro status as far as any improvement Physical Exam Vital signs: Vital Signs 07/23/18 14:00 07/23/18 14:36 07/23/18 14:52 Temperature Pulse Rate 74 72 69 Respiratory Rate 16 16 16 Blood Pressure 85/52 L 91/53 L Pulse Oximetry 97 97 07/23/18 15:00 07/23/18 15:58 07/23/18 16:00 Temperature Pulse Rate 71 73 Respiratory Rate 16 17 16 Blood Pressure 101/58 L 99/57 L Pulse Oximetry 97 99 95 07/23/18 18:00 07/23/18 19:53 07/23/18 20:00 Temperature 97.7 F Pulse Rate 80 83 83 Respiratory Rate 16 16 Blood Pressure 130/70 Pulse Oximetry 96 97 07/23/18 21:50 07/23/18 22:00 07/23/18 22:11 Temperature 97.5 F L Pulse Rate 91 H 81 70 Respiratory Rate 20 17 18 Blood Pressure 173/83 H 201/95 H 131/66 Pulse Oximetry 97 98 98 07/23/18 22:16 07/23/18 22:30 07/23/18 22:45 Temperature Pulse Rate 69 69 69 Respiratory Rate 18 22 16 Blood Pressure 84/50 L 91/55 L 126/68 Pulse Oximetry 97 98 98 07/23/18 23:00 07/23/18 23:15 07/23/18 23:30 Temperature Pulse Rate 74 72 72 Respiratory Rate 21 16 17 Blood Pressure 176/80 H 145/65 H 109/63 Pulse Oximetry 99 99 99 07/23/18 23:45 07/24/18 00:00 07/24/18 00:15 Temperature 98.0 F Pulse Rate 74 73 73 Respiratory Rate 16 16 16 Blood Pressure 164/80 H 156/77 H 143/66 H Pulse Oximetry 99 99 99 07/24/18 00:30 07/24/18 00:45 07/24/18 01:00 Temperature Pulse Rate 74 75 75 Respiratory Rate 16 16 14 Blood Pressure 133/74 138/76 154/65 H Pulse Oximetry 98 98 98 07/24/18 01:15 07/24/18 01:30 07/24/18 01:45 Temperature Pulse Rate 76 83 81 Respiratory Rate 17 18 24 Blood Pressure 149/68 H 200/95 H 156/98 H Pulse Oximetry 98 100 96 07/24/18 02:00 07/24/18 02:15 07/24/18 02:30 Temperature Pulse Rate 80 81 82 Respiratory Rate 22 21 18 Blood Pressure 158/73 H 161/77 H 159/81 H Pulse Oximetry 96 97 97 07/24/18 02:45 07/24/18 03:00 07/24/18 03:15 Temperature Pulse Rate 82 84 84 Respiratory Rate 18 18 21 Blood Pressure 165/83 H 155/79 H 152/74 H Pulse Oximetry 98 98 98 07/24/18 03:27 07/24/18 03:30 07/24/18 03:45 Temperature Pulse Rate 85 85 89 Respiratory Rate 19 21 21 Blood Pressure 148/72 H 155/78 H Pulse Oximetry 98 99 07/24/18 04:00 07/24/18 04:15 07/24/18 04:30 Temperature 98.9 F Pulse Rate 89 90 92 H Respiratory Rate 19 19 20 Blood Pressure 142/68 H 144/74 H 142/75 H Pulse Oximetry 99 99 98 07/24/18 04:45 07/24/18 05:00 07/24/18 05:15 Temperature Pulse Rate 92 H 93 H 92 H Respiratory Rate 18 19 17 Blood Pressure 137/73 131/72 125/66 Pulse Oximetry 99 99 99 07/24/18 05:30 07/24/18 05:45 07/24/18 06:00 Temperature Pulse Rate 93 H 92 H 93 H Respiratory Rate 19 17 19 Blood Pressure 122/69 113/64 123/69 Pulse Oximetry 99 98 99 07/24/18 08:00 07/24/18 08:18 07/24/18 10:53 Temperature 98.9 F Pulse Rate 97 H 101 H Respiratory Rate 19 19 23 Blood Pressure 124/58 L Pulse Oximetry 96 97 97 Intake & Output 07/23/18 07/24/18 07/24/18 18:59 06:59 18:59 Intake Total 1920 / 1920 2222 / 2222 Output Total 1100 / 1100 2150 / 2150 Balance 820 / 820 72 / 72 Weight 76.5 kg Intake: IV 1155 / 1155 1102 / 1102 D5W Inj 1,000 ML @ 60 mls/hr IV 1000 / 1000 .CONT .[id number] [facility] Rx#:[id number] Sodium Chloride 23.4% Inj 38.5 800 / 800 MEQ In Sterile Water for Inj 1, 000 ML @ 42 mls/hr IV.CONT . Q24H [facility] Rx#:[id number] Cerebyx Inj 100 MGPE In NS Inj 104 / 104 52 / 52 50 ML @ 208 mls/hr IV.SIG Q8HR [facility] Rx#:[id number] Zosyn 2.25 GM Premix 50 ML @ 150 / 150 50 / 50 100 mls/hr IV.SIG Q6H [facility] Rx#: [id number] Thiamine Inj 100 MG In NS Inj 101 / 101 100 ML @ 100 mls/hr IV.SIG DAILY [facility] Rx#:[id number] Tube Feeding 185 / 185 600 / 600 Tube Irrigant 180 / 180 120 / 120 Water Bolus Amount 400 / 400 400 / 400 Output: Urine 800 / 800 1850 / 1850 Stool 300 / 300 300 / 300 Pleural Fluid 0 / 0 Peritoneal Amount 0 / 0 Gastric Drainage 0 / 0 Orogastric Tube 0 / 0 Other: Date of Last Bowel Movement 07/23/18 07/23/18 07/23/18 # Incontinent Bowel Movements 0 Narrative: intubated/vent no sedation pupils 4mm fixed and dilated no ocr no corneals overbreathes vent by 2-3. no withdrawl to pain in any extremity. not following any commands no cough to suctioning - Urinary Catheter Management Indwelling Urethral Catheter Cath placed during this visit: yes, but has since been removed by the nurse Reason for continuing: Decision to DC catheter Insertion date: 07/18/18 Insertion time: 17:30 Removal date: 07/20/18 Removal time: 18:00 Results - Labs CBC & Chem 7: 07/24/18 04:35 07/24/18 04:35 Laboratory Results - last 24 hr 07/23/18 07/23/18 07/24/18 17:05 19:32 00:41 WBC RBC Hgb Hct MCV MCH MCHC RDW Plt Count MPV Neut % (Auto) Lymph % (Auto) [place] % (Auto) Eos % (Auto) Baso % (Auto) Neut # (Auto) Lymph # (Auto) [place] # (Auto) Eos # (Auto) Baso # (Auto) WBC Differential Differential Comment Sodium Potassium Chloride Carbon Dioxide Anion Gap BUN Creatinine Estimated GFR POC Glucose 151 H 173 H 178 H Random Glucose Calcium Phosphorus Magnesium Total Bilirubin AST ALT Alkaline Phosphatase Total Protein Albumin 07/24/18 07/24/18 07/24/18 04:35 04:35 05:54 WBC 15.1 H RBC 4.17 Hgb 13.1 Hct 40.0 MCV 96.1 MCH 31.5 MCHC 32.8 RDW 17.8 H Plt Count 231 MPV 8.0 Neut % (Auto) 84.3 H Lymph % (Auto) 9.0 [place] % (Auto) 6.4 Eos % (Auto) 0.2 Baso % (Auto) 0.1 Neut # (Auto) 12.7 H Lymph # (Auto) 1.4 [place] # (Auto) 1.0 H Eos # (Auto) 0.0 Baso # (Auto) 0.0 WBC Differential . Differential Comment Auto diff final Sodium 145 Potassium 3.9 D Chloride 115 H Carbon Dioxide 21.5 Anion Gap 9 BUN 38 H Creatinine 1.56 H Estimated GFR 33 L POC Glucose 128 H Random Glucose 144 H Calcium 8.3 L Phosphorus 2.5 D Magnesium 2.2 Total Bilirubin 0.5 AST 143 H ALT 103 H Alkaline Phosphatase 94 Total Protein 6.9 Albumin 2.5 L 07/24/18 08:16 WBC RBC Hgb Hct MCV MCH MCHC RDW Plt Count MPV Neut % (Auto) Lymph % (Auto) [place] % (Auto) Eos % (Auto) Baso % (Auto) Neut # (Auto) Lymph # (Auto) [place] # (Auto) Eos # (Auto) Baso # (Auto) WBC Differential Differential Comment Sodium Potassium Chloride Carbon Dioxide Anion Gap BUN Creatinine Estimated GFR POC Glucose 138 H Random Glucose Calcium Phosphorus Magnesium Total Bilirubin AST ALT Alkaline Phosphatase Total Protein Albumin Microbiology 07/18/18 17:05 Blood - Peripheral Aerobic Blood Culture - Final No growth in 5 days 07/18/18 17:05 Blood - Peripheral Anaerobic Blood Culture - Final No growth in 5 days 07/18/18 17:00 Blood - Peripheral Aerobic Blood Culture - Final No growth in 5 days 07/18/18 17:00 Blood - Peripheral Anaerobic Blood Culture - Final No growth in 5 days Assessment and Plan - Assessment (1) Anoxic encephalopathy Code(s): G93.1 - Anoxic brain damage, not elsewhere classified Status: Acute - Plan given the patients exam and eegs no chance for neurological recovery. will d/w her daughter
[2018-07-25] MEDS: Artificial Tears Opth Drops 15 ML Bottle EACH EYE SCH ×3 (01:11→19:47)
[2018-07-25] MEDS: Dextrose 5% in Water Inj 1,000 ML IV.CONT SCH (01:36)
[2018-07-25] MEDS: Insulin NovoLIN Regular Correctional Sugar Inj SQ SCH ×6 (04:17→23:47)
[2018-07-25] MEDS: Oral Hygiene Kit OROPHARYNG SCH ×4 (04:17→23:48)
[2018-07-25] MEDS: Fosphenytoin Inj 100 MGPE in Sodium Chlor 0.9% Inj 50 ML IV.SIG SCH ×3 (05:19→21:31)
[2018-07-25] MEDS: Piperacil/Tazo 2.25 GM Premix 50 ML IV.SIG SCH ×4 (05:19→23:48)
[2018-07-25 05:53] LABS: Baso % (Auto) 0.1 % (0.0-2.0); Eos # (Auto) 0.2 th/mm3 (0.0-0.4); Eos % (Auto) 1.5 % (0.0-4.0); Hematocrit 34.1 % (35.0-46.0); Hemoglobin 11.6 gm/dL (11.6-15.3); Lymph # (Auto) 1.5 th/mm3 (1.0-4.8); Mean Corpuscular Hemoglobin 31.9 pg (27.0-34.0); Mean Corpuscular Volume 93.9 fL (80.0-100.0); Mean Platelet Volume 8.7 fL (7.0-11.0); Mono # (Auto) 0.9 th/mm3 (0.0-0.9); Mono % (Auto) 5.6 % (0.0-8.0); Neut # (Auto) 13.7 th/mm3 (1.8-7.7); Neut % (Auto) 83.8 % (16.0-70.0); Platelet Count 217 th/mm3 (150-450); Red Blood Count 3.63 mil/mm3 (4.00-5.30); Red Cell Distribution Width 17.3 % (11.6-17.2); White Blood Count 16.3 th/mm3 (4.0-11.0)
[2018-07-25 06:18] LABS: Alanine Aminotransferase 62 U/L (10-53); Albumin 1.8 g/dL (3.4-5.0); Alkaline Phosphatase 70 U/L (45-117); Anion Gap 10 meq/L (5-15); Aspartate Aminotransferase 67 U/L (15-37); Blood Urea Nitrogen 32 mg/dL (7-18); Calcium 7.6 mg/dL (8.5-10.1); Carbon Dioxide 17.9 meq/L (21.0-32.0); Chloride 118 meq/L (98-107); Glomerular Filtration Rate 27 mL/min (>89); Glucose,Random 147 mg/dL (74-106); Magnesium 1.8 mg/dL (1.5-2.5); Phosphorus 1.6 mg/dL (2.5-4.9); Sodium 146 meq/L (136-145); Total Protein 6.2 g/dL (6.4-8.2)
[2018-07-25 06:22] LABS: Potassium 2.3 meq/L (3.5-5.1)
[2018-07-25] MEDS: Potassium Chlor 20 mEq Premix 20 MEQ/100 ML PIGGYBACK IV.SIG PRN ×4 (06:33→12:36)
[2018-07-25] MEDS: Sod Chloride 0.9% Inj 1,000 ML IV.SIG SCH ×2 (06:35→17:28)
--- NOTE | 2018-07-25 07:24 | P.PNCC ---
Subjective Subjective Remarks/Hospital Course: 73-year-old female with past medical history of hypertension, GERD, hypothyroidism, alcohol dependence, chronic pain on methadone, depression who presented to [facility] following asystolic cardiac arrest. She had last been seen normal about 2-1/2 hours prior. Her boyfriend came home and found her unresponsive. When [facility] arrived she was in asystole. She had a large amount of black emesis at the scene. CPR was initiated and she was given epinephrine x2 and bicarb and had ROSC. Combitube was placed. Had a second cardiac arrest. She was intubated in the emergency department. She was initially hypotensive and was started on Levophed. CT brain was negative for acute abnormality. CT chest demonstrates multiple right-sided rib fractures. There is no pulmonary embolism. EKG has no ST elevation. Troponin 0 0.11. Her daughter states she was having a cough and spitting up some phlegm yesterday. She drinks a bottle of vodka daily. She has been depressed since her 3 years ago. Her daughter is her only child. She has no advanced directive. 07/19 Patient is sedated with Diprivan and intubated. Unresponsive. 07/20 Patient is off sedation unresponsive. On Protonix drip. Afebrile. 07/21: Remains unresponsive. T-max 99.3 remains on pantoprazole drip. Hemodynamically stable. Hemoglobin stable. SUBJECTIVE: 07/22: Afebrile. No bowel movement overnight. KUB pending. EEG revealed acute encephalopathy versus anoxic injury. Supportive care at the present time ongoing. 07/23 Patient remains intubated and unresponsive. T:100.9 last night. 07/24 No events overnight. Intubated and unresponsive. Afebrile. 07/25 Patient is intubated and unresponsive, hypotensive and started on Levophed. Objective Vital Signs / I&O: Vital Signs 07/24/18 08:18 07/24/18 10:53 07/24/18 12:00 Temperature 98.3 F Pulse Rate 101 H 95 H Respiratory Rate 19 23 20 Blood Pressure 113/65 Pulse Oximetry 97 97 94 L 07/24/18 15:40 07/24/18 16:00 07/24/18 18:10 Temperature 98.8 F Pulse Rate 101 H 72 68 Respiratory Rate 16 16 16 Blood Pressure 90/54 L 144/62 H Pulse Oximetry 95 93 L 95 07/24/18 18:20 07/24/18 18:30 07/24/18 18:40 Temperature Pulse Rate 67 67 66 Respiratory Rate 16 16 16 Blood Pressure 126/61 129/55 L 127/60 Pulse Oximetry 95 95 95 07/24/18 18:50 07/24/18 19:00 07/24/18 19:10 Temperature Pulse Rate 65 64 63 Respiratory Rate 16 16 16 Blood Pressure 122/59 L 123/56 L 133/63 Pulse Oximetry 95 95 95 07/24/18 19:20 07/24/18 19:30 07/24/18 19:41 Temperature Pulse Rate 63 62 60 Respiratory Rate 15 16 19 Blood Pressure 123/58 L 136/64 87/51 L Pulse Oximetry 95 95 93 L 07/24/18 19:50 07/24/18 20:00 07/24/18 20:10 Temperature 97 F L Pulse Rate 60 60 59 L Respiratory Rate 16 16 16 Blood Pressure 125/60 121/56 L 115/58 L Pulse Oximetry 94 L 95 95 07/24/18 20:21 07/24/18 20:28 07/24/18 20:31 Temperature Pulse Rate 58 L 72 56 L Respiratory Rate 16 16 16 Blood Pressure 124/60 53/29 L Pulse Oximetry 96 95 97 07/24/18 20:34 07/24/18 20:35 07/24/18 20:37 Temperature Pulse Rate 55 L 56 L 60 Respiratory Rate 12 10 L 8 L Blood Pressure 47/26 L 46/24 L 124/60 Pulse Oximetry 95 93 L 94 L 07/24/18 20:50 07/24/18 21:00 07/24/18 21:10 Temperature Pulse Rate 59 L 59 L 59 L Respiratory Rate 16 12 16 Blood Pressure 84/47 L 111/55 L 125/58 L Pulse Oximetry 94 L 93 L 94 L 07/24/18 21:20 07/24/18 21:30 07/24/18 21:40 Temperature Pulse Rate 58 L 57 L 57 L Respiratory Rate 16 16 16 Blood Pressure 118/58 L 108/57 L 114/63 Pulse Oximetry 95 95 95 07/24/18 21:50 07/25/18 00:00 07/25/18 01:08 EDT Temperature 93 F L Pulse Rate 57 L 52 L Respiratory Rate 16 16 16 Blood Pressure 112/62 106/50 L Pulse Oximetry 96 97 95 07/25/18 03:22 07/25/18 04:00 07/25/18 04:27 Temperature 96 F L Pulse Rate 67 64 Respiratory Rate 16 16 16 Blood Pressure 87/49 L Pulse Oximetry 92 L 97 Intake & Output 07/24/18 07/25/18 07/25/18 19:59 06:59 18:59 Intake Total Output Total Balance Weight Intake: IV D5W Inj 1,000 ML @ 60 mls/hr IV .CONT .[id number] [facility] Rx#:[id number] Cerebyx Inj 100 MGPE In NS Inj 50 ML @ 208 mls/hr IV.SIG Q8HR [facility] Rx#:[id number] Levophed-Dextrose 4 mg/250 ml Drip 4 mg In 250 ml @ 2 MCG/MIN 7.5 mls/hr IV.SIG TITRATE [facility] Rx#:[id number] Zosyn 2.25 GM Premix 50 ML @ 100 mls/hr IV.SIG Q6H [facility] Rx#: [id number] Tube Feeding Water Bolus Amount Output: Urine Stool Other: Date of Last Bowel Movement # Incontinent Bowel Movements Result Diagrams: 07/25/18 05:14 07/25/18 05:14 Other Results: Laboratory Results - last 12 hr 07/24/18 07/25/18 07/25/18 23:36 04:11 05:14 WBC 16.3 H RBC 3.63 L Hgb 11.6 Hct 34.1 L MCV 93.9 MCH 31.9 MCHC 34.0 RDW 17.3 H Plt Count 217 MPV 8.7 Neut % (Auto) 83.8 H Lymph % (Auto) 9.0 [place] % (Auto) 5.6 Eos % (Auto) 1.5 Baso % (Auto) 0.1 Neut # (Auto) 13.7 H Lymph # (Auto) 1.5 [place] # (Auto) 0.9 Eos # (Auto) 0.2 Baso # (Auto) 0.0 WBC Differential . Differential Comment Auto diff final Sodium Potassium Chloride Carbon Dioxide Anion Gap BUN Creatinine Estimated GFR POC Glucose 196 H 159 H Random Glucose Calcium Phosphorus Magnesium Total Bilirubin AST ALT Alkaline Phosphatase Total Protein Albumin 07/25/18 05:14 WBC RBC Hgb Hct MCV MCH MCHC RDW Plt Count MPV Neut % (Auto) Lymph % (Auto) [place] % (Auto) Eos % (Auto) Baso % (Auto) Neut # (Auto) Lymph # (Auto) [place] # (Auto) Eos # (Auto) Baso # (Auto) WBC Differential Differential Comment Sodium 146 H Potassium 2.3 L* D Chloride 118 H Carbon Dioxide 17.9 L Anion Gap 10 BUN 32 H Creatinine 1.87 H Estimated GFR 27 L POC Glucose Random Glucose 147 H Calcium 7.6 L Phosphorus 1.6 L Magnesium 1.8 Total Bilirubin 0.4 AST 67 H ALT 62 H Alkaline Phosphatase 70 Total Protein 6.2 L D Albumin 1.8 L D Imaging: Chest CTA 07/18/18 17:48 CONCLUSION: 1. No evidence of pulmonary embolism. No filling defects are identified. 2. 2 fractures on the right are probably acute. There are number of other deformed ribs anteriorly on the left which are more likely chronic. Head CT 07/18/18 17:48 CONCLUSION: 1. Negative CT Head non contrast. . Abdomen Ultrasound 07/19/18 00:00 CONCLUSION: 1. Apparent small amount of sludge within the gallbladder with no definite stones. 2. The common bile duct appears mildly prominent at 8 mm. 3. The kidneys are small in size with no evidence of obstruction or focal lesion. Abdomen X-Ray 07/22/18 00:00 CONCLUSION: NG tube within the stomach, otherwise unremarkable two-view abdomen Chest X-Ray 07/23/18 06:00 CONCLUSION: Objective Remarks: GENERAL: Patient is 73 yo intubated unresponsive SKIN: Warm and dry. HEAD: Normocephalic. EYES: No scleral icterus. No injection or drainage. NECK: Supple, trachea midline. No JVD or lymphadenopathy. CARDIOVASCULAR: Regular rate and rhythm without murmurs, gallops, or rubs. RESPIRATORY: Breath sounds equal bilaterally. No accessory muscle use. GASTROINTESTINAL: Abdomen soft, non-tender, nondistended. MUSCULOSKELETAL: No cyanosis, or edema. Neuro: Intubated, unresponsive. No cough, gag reflex. Assessment and Plan - Assessment and Plan Plan: NEURO: Coma Anoxic encephalopathy Seizure Alcohol dependence Acute alcohol intoxication upon presentation Fosphenytoin load and 100 mg PE q8 hours. Dilantin level 11.1 on 07/22 Off sedation EEG: Diffuse slowing of background seen with diffuse cerebral dysfunction, possibly with an anoxia. No epileptiform features. CT brain no acute abnormality. Thiamine/multivitamin/folic acid supplementation. Neuro is following- Dr. Sparrow RESP: Acute hypoxic respiratory failure Multiple rib fractures PRVC. Ventilator bundle. Neuro status prevents extubation Continue with vent support keep sats >92% Bronchodilators, ICU vent bundle. CXR: No infiltrates or effusions CV: Asystolic cardiac arrest Hypotension postarrest (resolved) Hypertension Elevated troponin - likely demand ischemia following respiratory arrest On Levophed monitor HR and BP keep MAP>65mmHg Place on Hydrocortisone 50mg IV Q6 2D echo to eval LV function: EF 55-60% GI: Vomiting Diarrhea present on admission Cirrhosis Elevated LFT's...trending down Ischemic hepatitis versus acute alcoholic hepatitis Hyperammonemia Hep C AB + Resume tube feeds Jevity 1.5 with goal rate 40ml/hr Lansoprazole 30 mg daily Monitor LFT's US liver: small amount of sludge within the gallbladder with no definite stones. The common bile duct appears mildly prominent at 8 mm. Hepatitis profile - neg. Rifaximin 550 mg p.o. twice daily and lactulose 30 cc 4 times daily. Recheck ammonia level in a.m. 07/22 FEN/RENAL: Hyper Na+ Acute kidney injury- Periwick in place. Monitor intake and output. Monitor electrolytes and replace as indicated. Will need K replacement today Monitor renal function, avoid nephrotoxins Renal function is worse with Cr: 1.87 from 1.56 on Free water 200ml Q6 Change IVF NS@100ml/hr ID: E. coli UTI present on admission 07/18 BC, 07/19 sputum cx: No growth Continue with Zosyn add Vanco. Monitor for signs of infections ( Fever, WBC) Check C-diff PCR r/o C-diff HEME: Monitor CBC. Transfuse as needed for Hgb < 7. ENDO: Acute hyperglycemia Increase SSI to medium scale PROPH: SCDs for DVT prophylaxis. Pharmacologic DVT prophylaxis contraindicated due to GI bleeding. Lansoprazole GI prophylaxis Palliative care is following. Hospice service consulted Code status: No code DNR Patient is critically with anoxic brain injury, worsening renal function and septic shock CCT 35 mins
[2018-07-25] MEDS ORDERED: Vancomycin Consult Pharmacy OTHER PRN (07:26)
[2018-07-25] MEDS ORDERED: Vancomycin Inj 1,500 MG in Sodium Chlor 0.9% Inj 500 ML IV.SIG ONE (08:00)
[2018-07-25] MEDS: Hydrocortisone Sod Succinate 100 MG Vial IV.PUSH SCH ×4 (08:16→23:48)
[2018-07-25] MEDS: Chlorhexidine 0.12% Oral Kit 15 ML UDC OROPHARYNG SCH ×2 (08:16→20:17)
[2018-07-25] MEDS: Polyethylene Glycol 3350 17 GM Packet PO SCH (08:17)
[2018-07-25] MEDS: Folic Acid 1 MG Tablet PO SCH (08:19)
[2018-07-25] MEDS: Senna/Docusate Sodium 8.6/50 MG Tablet PO SCH (08:19)
[2018-07-25] MEDS: rifAXIMin 550 MG Tablet NG/OG SCH ×2 (08:19→20:17)
[2018-07-25] MEDS: Thiamine Inj 100 MG in Sodium Chlor 0.9% Inj 100 ML IV.SIG SCH (08:31)
[2018-07-25 08:32] VITALS: RESP 16
[2018-07-25] MEDS ORDERED: Sod Chloride 0.9% Inj 1,000 ML IV.SIG SCH (15:00)
[2018-07-26] MEDS: Artificial Tears Opth Drops 15 ML Bottle EACH EYE SCH ×2 (01:50→10:03)
[2018-07-26] MEDS: Sod Chloride 0.9% Inj 1,000 ML IV.SIG SCH ×2 (02:06→05:04)
[2018-07-26] MEDS: Insulin NovoLIN Regular Correctional Sugar Inj SQ SCH ×3 (03:31→11:50)
[2018-07-26] MEDS: Oral Hygiene Kit OROPHARYNG SCH ×2 (03:32→11:48)
[2018-07-26] MEDS: Hydrocortisone Sod Succinate 100 MG Vial IV.PUSH SCH (05:01)
[2018-07-26] MEDS: Fosphenytoin Inj 100 MGPE in Sodium Chlor 0.9% Inj 50 ML IV.SIG SCH ×2 (05:03→14:18)
[2018-07-26] MEDS: Piperacil/Tazo 2.25 GM Premix 50 ML IV.SIG SCH (05:03)
--- NOTE | 2018-07-26 08:18 | P.PNCC ---
Subjective Subjective Remarks/Hospital Course: 73-year-old female with past medical history of hypertension, GERD, hypothyroidism, alcohol dependence, chronic pain on methadone, depression who presented to [facility] following asystolic cardiac arrest. She had last been seen normal about 2-1/2 hours prior. Her boyfriend came home and found her unresponsive. When [facility] arrived she was in asystole. She had a large amount of black emesis at the scene. CPR was initiated and she was given epinephrine x2 and bicarb and had ROSC. Combitube was placed. Had a second cardiac arrest. She was intubated in the emergency department. She was initially hypotensive and was started on Levophed. CT brain was negative for acute abnormality. CT chest demonstrates multiple right-sided rib fractures. There is no pulmonary embolism. EKG has no ST elevation. Troponin 0 0.11. Her daughter states she was having a cough and spitting up some phlegm yesterday. She drinks a bottle of vodka daily. She has been depressed since her 3 years ago. Her daughter is her only child. She has no advanced directive. 07/19 Patient is sedated with Diprivan and intubated. Unresponsive. 07/20 Patient is off sedation unresponsive. On Protonix drip. Afebrile. 07/21: Remains unresponsive. T-max 99.3 remains on pantoprazole drip. Hemodynamically stable. Hemoglobin stable. SUBJECTIVE: 07/22: Afebrile. No bowel movement overnight. KUB pending. EEG revealed acute encephalopathy versus anoxic injury. Supportive care at the present time ongoing. 07/23 Patient remains intubated and unresponsive. T:100.9 last night. 07/24 No events overnight. Intubated and unresponsive. Afebrile. 07/25 Patient is intubated and unresponsive, hypotensive and started on Levophed. 07/26 Patient is intubated and unresponsive on Levophed 3 mics. Objective Vital Signs / I&O: Vital Signs 07/25/18 08:29 07/25/18 08:32 07/25/18 11:37 Temperature Pulse Rate 69 Respiratory Rate 17 16 16 Blood Pressure Pulse Oximetry 97 95 07/25/18 12:00 07/25/18 15:09 07/25/18 15:10 Temperature 96 F L Pulse Rate 69 64 Respiratory Rate 16 16 16 Blood Pressure 164/77 H Pulse Oximetry 97 96 07/25/18 16:00 07/25/18 19:56 07/25/18 19:59 Temperature 94 F L Pulse Rate 63 77 Respiratory Rate 16 16 16 Blood Pressure 132/59 L Pulse Oximetry 97 98 07/25/18 20:00 07/26/18 00:00 07/26/18 00:32 Temperature 95 F L 96 F L Pulse Rate 77 84 Respiratory Rate 16 16 16 Blood Pressure 138/62 112/55 L Pulse Oximetry 97 98 96 07/26/18 04:00 07/26/18 04:13 07/26/18 04:14 Temperature 96 F L Pulse Rate 79 79 Respiratory Rate 16 16 16 Blood Pressure 86/49 L Pulse Oximetry 96 97 07/26/18 08:00 Temperature Pulse Rate 74 Respiratory Rate 16 Blood Pressure Pulse Oximetry Intake & Output 07/25/18 07/26/18 07/26/18 18:59 06:59 18:59 Intake Total 1902 / 1902 2997 / 2997 Output Total 1000 / 1000 1650 / 1650 Balance 902 / 902 1347 / 1347 Weight 81 kg Intake: IV 1752 / 1752 2784 / 2784 Cerebyx Inj 100 MGPE In NS Inj 52 / 52 104 / 104 50 ML @ 208 mls/hr IV.SIG Q8HR [facility] Rx#:[id number] Levophed-Dextrose 4 mg/250 ml 250 / 250 Drip 4 mg In 250 ml @ 2 MCG/MIN 7.5 mls/hr IV.SIG TITRATE [facility] Rx#:[id number] Zosyn 2.25 GM Premix 50 ML @ 50 / 50 150 / 150 100 mls/hr IV.SIG Q6H [facility] Rx#: [id number] KCl 20 mEq Premix Inj 20 meq In 400 / 400 100 ml @ 50 mls/hr IV.SIG Q2H [facility] Rx#:[id number] NS Inj 1,000 ML @ 100 mls/hr IV 1000 / 1000 1000 / 1000 .SIG .Q10H [facility] Rx#:[id number] Tube Feeding 0 / 0 Water Bolus Amount 150 / 150 200 / 200 Output: Urine 1000 / 1000 1550 / 1550 Stool 100 / 100 Other: Date of Last Bowel Movement 11/04/18 11/05/18 Result Diagrams: 07/26/18 09:54 07/26/18 09:54 Other Results: Laboratory Results - last 12 hr 07/25/18 07/25/18 07/25/18 17:00 20:16 23:34 Potassium 4.4 D POC Glucose 188 H Stl C.difficile DNA Amp Positive H St C. diff Tox Epid 027 Negative Random Vancomycin 07/26/18 07/26/18 03:28 03:30 Potassium POC Glucose 190 H Stl C.difficile DNA Amp St C. diff Tox Epid 027 Random Vancomycin 19.1 Imaging: Chest CTA 07/18/18 17:48 CONCLUSION: 1. No evidence of pulmonary embolism. No filling defects are identified. 2. 2 fractures on the right are probably acute. There are number of other deformed ribs anteriorly on the left which are more likely chronic. Head CT 07/18/18 17:48 CONCLUSION: 1. Negative CT Head non contrast. . Abdomen Ultrasound 07/19/18 00:00 CONCLUSION: 1. Apparent small amount of sludge within the gallbladder with no definite stones. 2. The common bile duct appears mildly prominent at 8 mm. 3. The kidneys are small in size with no evidence of obstruction or focal lesion. Abdomen X-Ray 07/22/18 00:00 CONCLUSION: NG tube within the stomach, otherwise unremarkable two-view abdomen Chest X-Ray 07/23/18 06:00 CONCLUSION: Objective Remarks: GENERAL: Patient is 73 yo intubated unresponsive SKIN: Warm and dry. HEAD: Normocephalic. EYES: No scleral icterus. No injection or drainage. NECK: Supple, trachea midline. No JVD or lymphadenopathy. CARDIOVASCULAR: Regular rate and rhythm without murmurs, gallops, or rubs. RESPIRATORY: Breath sounds equal bilaterally. No accessory muscle use. GASTROINTESTINAL: Abdomen soft, non-tender, nondistended. MUSCULOSKELETAL: No cyanosis, or edema. Neuro: Intubated, unresponsive. No cough, gag reflex. Assessment and Plan - Assessment and Plan Plan: NEURO: Coma Anoxic encephalopathy Seizure Alcohol dependence Acute alcohol intoxication upon presentation Fosphenytoin load and 100 mg PE q8 hours. Dilantin level 11.1 on 07/22 Off sedation EEG: Diffuse slowing of background seen with diffuse cerebral dysfunction, possibly with an anoxia. No epileptiform features. CT brain no acute abnormality. Thiamine/multivitamin/folic acid supplementation. Neuro is following- Dr. Sparrow RESP: Acute hypoxic respiratory failure Multiple rib fractures PRVC. Ventilator bundle. Neuro status prevents extubation Continue with vent support keep sats >92% Bronchodilators, ICU vent bundle. CXR: No infiltrates or effusions CV: Asystolic cardiac arrest Hypotension postarrest (resolved) Hypertension Elevated troponin - likely demand ischemia following respiratory arrest On Levophed monitor HR and BP keep MAP>65mmHg Decrease Hydrocortisone 50mg IV Q12 2D echo to eval LV function: EF 55-60% GI: Vomiting Diarrhea present on admission Cirrhosis Elevated LFT's...trending down Ischemic hepatitis versus acute alcoholic hepatitis Hyperammonemia Hep C AB + Resume tube feeds Jevity 1.5 with goal rate 40ml/hr Lansoprazole 30 mg daily Monitor LFT's US liver: small amount of sludge within the gallbladder with no definite stones. The common bile duct appears mildly prominent at 8 mm. Hepatitis profile - neg. Rifaximin 550 mg p.o. twice daily and lactulose 30 cc 4 times daily. Recheck ammonia level in a.m. 07/22 FEN/RENAL: Acute kidney injury Periwick in place. Monitor intake and output. Monitor electrolytes and replace as indicated. Will need K replacement today Monitor renal function, avoid nephrotoxins Follow up BMP Change free water Free water 300ml Q6, change IVF D5W@75ml/hr ID: E. coli UTI present on admission 07/18 BC, 07/19 sputum cx: No growth Monitor for signs of infections ( Fever, WBC) C-diff PCR positive start Vanco 125mg PO QID., d/c zosyn HEME: Monitor CBC. Transfuse as needed for Hgb < 7. ENDO: Acute hyperglycemia Increase SSI to medium scale PROPH: SCDs for DVT prophylaxis. Pharmacologic DVT prophylaxis contraindicated due to GI bleeding. Lansoprazole GI prophylaxis Palliative care is following. Hospice service consulted Code status: No code DNR Patient is critically with anoxic brain injury, worsening renal function, c- diff colitis and septic shock Addendum 1530 Palliative care met with daughter and elected to proceed with withdrawal life support and transition to comfort care. CCT 35 mins
[2018-07-26] MEDS ORDERED: Sodium Chlor 0.9% Inj 500 ML IV.SIG SCH (10:00)
[2018-07-26] MEDS: rifAXIMin 550 MG Tablet NG/OG SCH (10:02)
[2018-07-26] MEDS: Folic Acid 1 MG Tablet PO SCH (10:02)
[2018-07-26] MEDS: Chlorhexidine 0.12% Oral Kit 15 ML UDC OROPHARYNG SCH (10:03)
[2018-07-26] MEDS: Thiamine Inj 100 MG in Sodium Chlor 0.9% Inj 100 ML IV.SIG SCH (10:04)
[2018-07-26 10:33] LABS: Baso % (Auto) 0.2 % (0.0-2.0); Eos % (Auto) 0.2 % (0.0-4.0); Hematocrit 32.7 % (35.0-46.0); Hemoglobin 10.9 gm/dL (11.6-15.3); Lymph # (Auto) 0.8 th/mm3 (1.0-4.8); Lymph % (Auto) 4.7 % (9.0-44.0); Mean Corpuscular HGB Conc 33.2 % (32.0-36.0); Mean Corpuscular Volume 96.5 fL (80.0-100.0); Mean Platelet Volume 8.7 fL (7.0-11.0); Mono # (Auto) 0.6 th/mm3 (0.0-0.9); Mono % (Auto) 3.5 % (0.0-8.0); Neut # (Auto) 16.3 th/mm3 (1.8-7.7); Neut % (Auto) 91.4 % (16.0-70.0); Platelet Count 250 th/mm3 (150-450); Red Blood Count 3.39 mil/mm3 (4.00-5.30); Red Cell Distribution Width 18.1 % (11.6-17.2); White Blood Count 17.8 th/mm3 (4.0-11.0)
[2018-07-26 11:12] LABS: Alanine Aminotransferase 49 U/L (10-53); Albumin 1.7 g/dL (3.4-5.0); Alkaline Phosphatase 94 U/L (45-117); Anion Gap 11 meq/L (5-15); Aspartate Aminotransferase 51 U/L (15-37); Blood Urea Nitrogen 23 mg/dL (7-18); Calcium 8.4 mg/dL (8.5-10.1); Chloride 132 meq/L (98-107); Glomerular Filtration Rate 31 mL/min (>89); Glucose,Random 230 mg/dL (74-106); Magnesium 2.1 mg/dL (1.5-2.5); Phosphorus 2.9 mg/dL (2.5-4.9); Potassium 3.7 meq/L (3.5-5.1); Total Protein 6.2 g/dL (6.4-8.2)
[2018-07-26 11:15] LABS: Sodium 158 meq/L (136-145)
[2018-07-26 11:25] VITALS: BP 99/56; PULSE 75; TEMP 94.1
[2018-07-26 11:27] VITALS: O2SAT 95
[2018-07-26] MEDS ORDERED: Dextrose 5% in Water Inj 1,000 ML IV.CONT SCH (11:45)
[2018-07-26] MEDS ORDERED: Vancomycin Inj 1,250 MG in Sodium Chlor 0.9% Inj 250 ML IV.SIG ONE (13:00)
[2018-07-26] MEDS ORDERED: Morphine Inj 4 MG/ML Vial IV.PUSH ONE (13:42)
[2018-07-26] MEDS ORDERED: Hyoscyamine Inj 0.5 MG/ML Ampul IV.PUSH PRN (13:42)
[2018-07-26] MEDS ORDERED: Morphine Inj 4 MG/ML Vial IV.PUSH PRN (13:42)
[2018-07-26] MEDS ORDERED: Acetaminophen 650 MG Supp RECTAL PRN (13:42)
[2018-07-26] MEDS ORDERED: Hyoscyamine Inj 0.5 MG/ML Ampul IV.PUSH ONE (13:42)
[2018-07-26] MEDS ORDERED: Morphine Sulfate Inj 8 MG/ML Vial IV.PUSH PRN (13:42)
[2018-07-26] MEDS ORDERED: Morphine Sulfate Inj 8 MG/ML Vial IV.PUSH ONE (13:42)
--- NOTE | 2018-07-26 13:53 | P.PNPAL ---
Reason for Visit Reason for visit: a. To assist with evaluation and management of symptoms including: encephalopathy, pain, dyspnea. b. To assist medical decision maker(s) with: better understanding of current medical conditions; weighing benefits/burdens of medical treatment options; making medical treatment decisions. Subjective Subjective/Interval History: Patient seen and examined in ICU. Daughter at bedside. Also present [facility] hospice nurse and student nurse. Discussed with multifocal button generator, requested for [facility] [employer] - Father Chein visited. Medical update provided. Temp [address] Hypotensive, on pressor support. No evidence of neurologic recovery. Advance Directives Living Will: Never completed Health Care Surrogate: Never completed Durable Power of Plant Safety Leader: Never completed Health Care Surrogate Name and Number: Health care proxy, Evelia Lopez, daughter: [phone] Significant change in goals:: NO CODE. Transition to comfort measures with withdrawal of life support with hospice services. Objective Vital Signs: Vital Signs 07/25/18 15:09 07/25/18 15:10 07/25/18 16:00 Temperature 94 F L Pulse Rate 64 63 Respiratory Rate 16 16 16 Blood Pressure 132/59 L Pulse Oximetry 96 97 07/25/18 19:56 07/25/18 19:59 07/25/18 20:00 Temperature 95 F L Pulse Rate 77 77 Respiratory Rate 16 16 16 Blood Pressure 138/62 Pulse Oximetry 98 97 07/26/18 00:00 07/26/18 00:32 07/26/18 04:00 Temperature 96 F L 96 F L Pulse Rate 84 79 Respiratory Rate 16 16 16 Blood Pressure 112/55 L 86/49 L Pulse Oximetry 98 96 96 07/26/18 04:13 07/26/18 04:14 07/26/18 08:00 Temperature Pulse Rate 79 74 Respiratory Rate 16 16 16 Blood Pressure Pulse Oximetry 97 96 07/26/18 08:10 07/26/18 08:20 07/26/18 08:30 Temperature 94.1 F L 94.1 F L Pulse Rate 75 75 Respiratory Rate 16 16 Blood Pressure 119/57 L 133/62 112/56 L Pulse Oximetry 95 96 07/26/18 08:34 07/26/18 08:40 07/26/18 08:50 Temperature 93.9 F L 94.1 F L 94.1 F L Pulse Rate 76 78 78 Respiratory Rate 16 16 16 Blood Pressure 124/61 151/72 H 143/71 H Pulse Oximetry 96 97 97 07/26/18 09:00 07/26/18 09:11 07/26/18 09:14 Temperature 94.1 F L 93.9 F L 94.1 F L Pulse Rate 82 73 73 Respiratory Rate 13 16 16 Blood Pressure 212/88 H 67/40 L 66/42 L Pulse Oximetry 97 94 L 93 L 07/26/18 09:15 07/26/18 09:16 07/26/18 09:18 Temperature 94.1 F L 94.1 F L 94.1 F L Pulse Rate 73 74 79 Respiratory Rate 16 16 16 Blood Pressure 66/39 L 75/50 L 182/93 H Pulse Oximetry 93 L 93 L 94 L 07/26/18 09:20 07/26/18 09:28 07/26/18 09:30 Temperature 94.1 F L 93.9 F L 93.9 F L Pulse Rate 86 81 81 Respiratory Rate 16 14 16 Blood Pressure 227/153 H 175/79 H 161/91 H Pulse Oximetry 99 98 97 07/26/18 09:40 07/26/18 09:51 07/26/18 10:00 Temperature 93.9 F L 93.9 F L 93.7 F L Pulse Rate 75 79 73 Respiratory Rate 16 5 L 16 Blood Pressure 92/53 L 228/91 H Pulse Oximetry 95 98 95 07/26/18 10:06 07/26/18 10:10 07/26/18 10:20 Temperature 93.7 F L 93.7 F L 91.9 F L Pulse Rate 73 76 74 Respiratory Rate 16 16 16 Blood Pressure 86/50 L 141/65 H 116/59 L Pulse Oximetry 94 L 97 97 07/26/18 10:30 07/26/18 10:40 07/26/18 10:50 Temperature 93.2 F L 93.6 F L 93.7 F L Pulse Rate 72 72 72 Respiratory Rate 16 16 16 Blood Pressure 113/58 L 110/59 L 97/56 L Pulse Oximetry 98 97 96 07/26/18 11:00 07/26/18 11:10 07/26/18 11:26 Temperature 93.9 F L 94.1 F L Pulse Rate 72 75 Respiratory Rate 16 16 16 Blood Pressure 96/51 L 99/56 L Pulse Oximetry 96 96 95 Intake & Output 07/25/18 07/26/18 07/26/18 18:59 06:59 18:59 Intake Total 2002 2997 / 2997 250 / 250 Output Total 1000 / 1000 1650 / 1650 Balance 1003 / 1003 1347 / 1347 250 / 250 Weight 81 kg Intake: IV 1853 / 1853 2784 / 2784 250 / 250 Cerebyx Inj 100 MGPE In NS Inj 52 / 52 104 / 104 50 ML @ 208 mls/hr IV.SIG Q8HR [facility] Rx#:[id number] Levophed-Dextrose 4 mg/250 ml 250 / 250 250 / 250 Drip 4 mg In 250 ml @ 2 MCG/MIN 7.5 mls/hr IV.SIG TITRATE PRN Rx#:[id number] Zosyn 2.25 GM Premix 50 ML @ 50 / 50 150 / 150 100 mls/hr IV.SIG Q6H SUNITA Rx#: [id number] KCl 20 mEq Premix Inj 20 meq In 400 / 400 100 ml @ 50 mls/hr IV.SIG Q2H PRN Rx#:[id number] NS Inj 1,000 ML @ 100 mls/hr IV 1000 / 1000 1000 / 1000 .SIG .Q10H SUNITA Rx#:[id number] Thiamine Inj 100 MG In NS Inj 101 / 101 100 ML @ 100 mls/hr IV.SIG DAILY SUNITA Rx#:[id number] Tube Feeding 0 / 0 13 / 13 Water Bolus Amount 150 / 150 200 / 200 Output: Urine 1000 / 1000 1550 / 1550 Stool 100 / 100 Other: Date of Last Bowel Movement 07/25/18 07/26/18 07/26/18 Physical Exam: CONSTITUTIONAL/GENERAL: This is a critically ill patient, on mech vent. TUBES/LINES/DRAINS: ETT, OG, right subclavian CL, PIV bilateral, bilateral soft wrist restraints, Johnston. SKIN: Hypothermic. Ecchymoses on upper extremities. EYES: scleral edema. ENT: Unable to assess hearing. nose without bleeding or purulent drainage. Throat difficult to visualize due to tubes. CARDIOVASCULAR: Regular rate and rhythm without murmurs. RESPIRATORY/CHEST: On mech vent. Breath sounds equal bilaterally. GASTROINTESTINAL: Abdomen soft, nondistended. + BS. GENITOURINARY: Without palpable bladder distension. Johnston catheter in place. MUSCULOSKELETAL: Extremities without clubbing, cyanosis, or edema. NEUROLOGICAL: Unresponsive. Not following commands, breathing over vent, no withdraw to pain. No cough or gag. Does not blink to threat. PSYCHIATRIC: Unresponsive off sedation. Diagnostic Tests Laboratory: Laboratory Results - last 72 hr 07/22/18 07/23/18 07/23/18 03:11 17:05 19:32 WBC RBC Hgb Hct MCV MCH MCHC RDW Plt Count MPV Neut % (Auto) Lymph % (Auto) Storey % (Auto) Eos % (Auto) Baso % (Auto) Neut # (Auto) Lymph # (Auto) Storey # (Auto) Eos # (Auto) Baso # (Auto) WBC Differential Differential Comment Sodium Potassium Chloride Carbon Dioxide Anion Gap BUN Creatinine Estimated GFR POC Glucose 151 H 173 H Random Glucose Calcium Phosphorus Magnesium Total Bilirubin AST ALT Alkaline Phosphatase Total Protein Albumin Stool C.difficile Ag Stool C.difficile Toxin Stl C.difficile DNA Amp St C. diff Tox Epid 027 Random Vancomycin HCV RNA (PCR) IUs/ml Less than 15 HCV RNA PCR log IUs/ml Less than 1.18 07/24/18 07/24/18 07/24/18 00:41 04:35 04:35 WBC 15.1 H RBC 4.17 Hgb 13.1 Hct 40.0 MCV 96.1 MCH 31.5 MCHC 32.8 RDW 17.8 H Plt Count 231 MPV 8.0 Neut % (Auto) 84.3 H Lymph % (Auto) 9.0 Storey % (Auto) 6.4 Eos % (Auto) 0.2 Baso % (Auto) 0.1 Neut # (Auto) 12.7 H Lymph # (Auto) 1.4 Storey # (Auto) 1.0 H Eos # (Auto) 0.0 Baso # (Auto) 0.0 WBC Differential . Differential Comment Auto diff final Sodium 145 Potassium 3.9 D Chloride 115 H Carbon Dioxide 21.5 Anion Gap 9 BUN 38 H Creatinine 1.56 H Estimated GFR 33 L POC Glucose 178 H Random Glucose 144 H Calcium 8.3 L Phosphorus 2.5 D Magnesium 2.2 Total Bilirubin 0.5 AST 143 H ALT 103 H Alkaline Phosphatase 94 Total Protein 6.9 Albumin 2.5 L Stool C.difficile Ag Stool C.difficile Toxin Stl C.difficile DNA Amp St C. diff Tox Epid 027 Random Vancomycin HCV RNA (PCR) IUs/ml HCV RNA PCR log IUs/ml 07/24/18 07/24/18 07/24/18 05:54 08:16 14:00 WBC RBC Hgb Hct MCV MCH MCHC RDW Plt Count MPV Neut % (Auto) Lymph % (Auto) Storey % (Auto) Eos % (Auto) Baso % (Auto) Neut # (Auto) Lymph # (Auto) Storey # (Auto) Eos # (Auto) Baso # (Auto) WBC Differential Differential Comment Sodium Potassium Chloride Carbon Dioxide Anion Gap BUN Creatinine Estimated GFR POC Glucose 128 H 138 H 164 H Random Glucose Calcium Phosphorus Magnesium Total Bilirubin AST ALT Alkaline Phosphatase Total Protein Albumin Stool C.difficile Ag Stool C.difficile Toxin Stl C.difficile DNA Amp St C. diff Tox Epid 027 Random Vancomycin HCV RNA (PCR) IUs/ml HCV RNA PCR log IUs/ml 07/24/18 07/24/18 07/24/18 17:52 20:10 23:36 WBC RBC Hgb Hct MCV MCH MCHC RDW Plt Count MPV Neut % (Auto) Lymph % (Auto) Storey % (Auto) Eos % (Auto) Baso % (Auto) Neut # (Auto) Lymph # (Auto) Storey # (Auto) Eos # (Auto) Baso # (Auto) WBC Differential Differential Comment Sodium Potassium Chloride Carbon Dioxide Anion Gap BUN Creatinine Estimated GFR POC Glucose 224 H 244 H 196 H Random Glucose Calcium Phosphorus Magnesium Total Bilirubin AST ALT Alkaline Phosphatase Total Protein Albumin Stool C.difficile Ag Stool C.difficile Toxin Stl C.difficile DNA Amp St C. diff Tox Epid 027 Random Vancomycin HCV RNA (PCR) IUs/ml HCV RNA PCR log IUs/ml 07/25/18 07/25/18 07/25/18 04:11 05:14 05:14 WBC 16.3 H RBC 3.63 L Hgb 11.6 Hct 34.1 L MCV 93.9 MCH 31.9 MCHC 34.0 RDW 17.3 H Plt Count 217 MPV 8.7 Neut % (Auto) 83.8 H Lymph % (Auto) 9.0 Storey % (Auto) 5.6 Eos % (Auto) 1.5 Baso % (Auto) 0.1 Neut # (Auto) 13.7 H Lymph # (Auto) 1.5 Storey # (Auto) 0.9 Eos # (Auto) 0.2 Baso # (Auto) 0.0 WBC Differential . Differential Comment Auto diff final Sodium 146 H Potassium 2.3 L* D Chloride 118 H Carbon Dioxide 17.9 L Anion Gap 10 BUN 32 H Creatinine 1.87 H Estimated GFR 27 L POC Glucose 159 H Random Glucose 147 H Calcium 7.6 L Phosphorus 1.6 L Magnesium 1.8 Total Bilirubin 0.4 AST 67 H ALT 62 H Alkaline Phosphatase 70 Total Protein 6.2 L D Albumin 1.8 L D Stool C.difficile Ag Stool C.difficile Toxin Stl C.difficile DNA Amp St C. diff Tox Epid 027 Random Vancomycin HCV RNA (PCR) IUs/ml HCV RNA PCR log IUs/ml 07/25/18 07/25/18 07/25/18 13:38 17:00 17:19 WBC RBC Hgb Hct MCV MCH MCHC RDW Plt Count MPV Neut % (Auto) Lymph % (Auto) Storey % (Auto) Eos % (Auto) Baso % (Auto) Neut # (Auto) Lymph # (Auto) Storey # (Auto) Eos # (Auto) Baso # (Auto) WBC Differential Differential Comment Sodium Potassium Chloride Carbon Dioxide Anion Gap BUN Creatinine Estimated GFR POC Glucose 177 H 230 H Random Glucose Calcium Phosphorus Magnesium Total Bilirubin AST ALT Alkaline Phosphatase Total Protein Albumin Stool C.difficile Ag Positive H Stool C.difficile Toxin Negative Stl C.difficile DNA Amp Positive H St C. diff Tox Epid 027 Negative Random Vancomycin HCV RNA (PCR) IUs/ml HCV RNA PCR log IUs/ml 07/25/18 07/25/18 07/25/18 19:38 20:16 23:34 WBC RBC Hgb Hct MCV MCH MCHC RDW Plt Count MPV Neut % (Auto) Lymph % (Auto) Storey % (Auto) Eos % (Auto) Baso % (Auto) Neut # (Auto) Lymph # (Auto) Storey # (Auto) Eos # (Auto) Baso # (Auto) WBC Differential Differential Comment Sodium Potassium 4.4 D Chloride Carbon Dioxide Anion Gap BUN Creatinine Estimated GFR POC Glucose 210 H 188 H Random Glucose Calcium Phosphorus Magnesium Total Bilirubin AST ALT Alkaline Phosphatase Total Protein Albumin Stool C.difficile Ag Stool C.difficile Toxin Stl C.difficile DNA Amp St C. diff Tox Epid 027 Random Vancomycin HCV RNA (PCR) IUs/ml HCV RNA PCR log IUs/ml 07/26/18 07/26/18 07/26/18 03:28 03:30 09:54 WBC 17.8 H RBC 3.39 L Hgb 10.9 L Hct 32.7 L MCV 96.5 MCH 32.0 MCHC 33.2 RDW 18.1 H Plt Count 250 MPV 8.7 Neut % (Auto) 91.4 H Lymph % (Auto) 4.7 L Storey % (Auto) 3.5 Eos % (Auto) 0.2 Baso % (Auto) 0.2 Neut # (Auto) 16.3 H Lymph # (Auto) 0.8 L Storey # (Auto) 0.6 Eos # (Auto) 0.0 Baso # (Auto) 0.0 WBC Differential . Differential Comment Auto diff final Sodium Potassium Chloride Carbon Dioxide Anion Gap BUN Creatinine Estimated GFR POC Glucose 190 H Random Glucose Calcium Phosphorus Magnesium Total Bilirubin AST ALT Alkaline Phosphatase Total Protein Albumin Stool C.difficile Ag Stool C.difficile Toxin Stl C.difficile DNA Amp St C. diff Tox Epid 027 Random Vancomycin 19.1 HCV RNA (PCR) IUs/ml HCV RNA PCR log IUs/ml 07/26/18 07/26/18 07/26/18 09:54 10:09 10:10 WBC RBC Hgb Hct MCV MCH MCHC RDW Plt Count MPV Neut % (Auto) Lymph % (Auto) Storey % (Auto) Eos % (Auto) Baso % (Auto) Neut # (Auto) Lymph # (Auto) Storey # (Auto) Eos # (Auto) Baso # (Auto) WBC Differential Differential Comment Sodium 158 H* D Potassium 3.7 Chloride 132 H D Carbon Dioxide 15.0 L Anion Gap 11 BUN 23 H Creatinine 1.64 H Estimated GFR 31 L POC Glucose 237 H 268 H Random Glucose 230 H Calcium 8.4 L D Phosphorus 2.9 D Magnesium 2.1 Total Bilirubin 0.2 AST 51 H ALT 49 Alkaline Phosphatase 94 Total Protein 6.2 L Albumin 1.7 L Stool C.difficile Ag Stool C.difficile Toxin Stl C.difficile DNA Amp St C. diff Tox Epid 027 Random Vancomycin HCV RNA (PCR) IUs/ml HCV RNA PCR log IUs/ml 07/26/18 11:50 WBC RBC Hgb Hct MCV MCH MCHC RDW Plt Count MPV Neut % (Auto) Lymph % (Auto) Storey % (Auto) Eos % (Auto) Baso % (Auto) Neut # (Auto) Lymph # (Auto) Storey # (Auto) Eos # (Auto) Baso # (Auto) WBC Differential Differential Comment Sodium Potassium Chloride Carbon Dioxide Anion Gap BUN Creatinine Estimated GFR POC Glucose 208 H Random Glucose Calcium Phosphorus Magnesium Total Bilirubin AST ALT Alkaline Phosphatase Total Protein Albumin Stool C.difficile Ag Stool C.difficile Toxin Stl C.difficile DNA Amp St C. diff Tox Epid 027 Random Vancomycin HCV RNA (PCR) IUs/ml HCV RNA PCR log IUs/ml Result Diagrams: 07/26/18 09:54 07/26/18 09:54 Microbiology: Microbiology 07/18/18 17:05 Aerobic Blood Culture - Final Blood - Peripheral No growth in 5 days Anaerobic Blood Culture - Final No growth in 5 days 07/18/18 17:00 Aerobic Blood Culture - Final Blood - Peripheral No growth in 5 days Anaerobic Blood Culture - Final No growth in 5 days Imaging: Chest CTA 07/18/18 17:48 CONCLUSION: 1. No evidence of pulmonary embolism. No filling defects are identified. 2. 2 fractures on the right are probably acute. There are number of other deformed ribs anteriorly on the left which are more likely chronic. Head CT 07/18/18 17:48 CONCLUSION: 1. Negative CT Head non contrast. . Abdomen Ultrasound 07/19/18 00:00 CONCLUSION: 1. Apparent small amount of sludge within the gallbladder with no definite stones. 2. The common bile duct appears mildly prominent at 8 mm. 3. The kidneys are small in size with no evidence of obstruction or focal lesion. Abdomen X-Ray 07/22/18 00:00 CONCLUSION: NG tube within the stomach, otherwise unremarkable two-view abdomen Chest X-Ray 07/23/18 06:00 CONCLUSION: Procedures: * 07/18/18 - asystolic arrest x 2, intubated, central line placed. Assessment and Plan - Disease Oriented Problem List (1) Cardiac asystole (2) Respiratory failure (3) Anoxic encephalopathy (4) Ribs, multiple fractures (5) Elevated troponin (6) Cirrhosis (7) Seizure (8) Elevated LFTs (9) Acute kidney injury - Symptom Scale (1) Pain 0-10 Scale: Unable to quantify (2) Dyspnea 0-10 Scale: Unable to quantify Pertinent Non-Medical Issues: Psychosocial: 3 years ago. Has a recent "boyfriend" who has been staying with her. Has 1 adult daughter and 2 granddaughters, live local. Spiritual: [employer]ism, non-practicing. Legal:Patient is not capacitated to make her own health care decisions, uncertain if she will regain capacity. Single. Has 1 daughter. No written advance directives. According to [place] statutes, health care proxy decision making falls to her daughter. Ethical issues impacting care: None. Important Contacts: * Evelia Lopez, dtr/ hcp: [phone] Prognosis: Discussed with Dr. Ag and Dr. Sparrow, plan to hold sedation to better evaluate neurologic status. EEG pending. If no improvement in neurologic status when off sedation, prognosis would be poor for meaningful recovery. Code Status: No Code DNR Plan: * Patient is not capacitated to make her own health care decisions, uncertain if she will regain capacity. Single. Has 1 daughter. No written advance directives. According to [place] statutes, health care proxy decision making falls to her daughter. * NO CODE * Daughter has elected to transition to comfort measures with hospice support. Discussed with Dr. Ag and Dr. Boyer. * scheduling manager requested for [facility]. * Hospice admitted patient. Will keep inpatient hospice for now. * SYMPTOMS: Pain and dyspnea: currently sedated on mech vent, no obvious signs of pain or SOB. Orders written for transition to comfort measures with withdrawal of life support. * Palliative care will continue to follow to assist with symptom management and clarification of medical treatment goals. Attestation Attestation: To help prompt me to consider important information that might be impacting today's encounter and assessment, information from prior notes written by myself or my colleagues may have been "brought forward" into today's note. My signature on this note, however, is an attestation that I personally performed the exam, history, and/or decision-making noted today, and, unless otherwise indicated, the interactions with patient, family, and staff as well as the review of records all occurred today. I also attest that the listed assessment and stated plan reflect my best clinical judgment today based on the combination of historical information, prior notes, and today's exam/ interactions. When time spent is documented, it refers only to time spent today by the signer, or if indicated, combined time spent today by collaborating physician/nurse practitioner.
--- NOTE | 2018-07-26 17:02 | MD ---
cc: Attila Dave MD DATE OF DISCHARGE: HOSPITAL COURSE: The patient is a 73-year-old female with past medical history of hypertension, GERD, hypothyroidism, ETOH dependence, chronic pain, on methadone depression who presented to [facility] ED status post asystolic cardiac arrest. She was last seen normal about 2-1/2 hours prior. Her boyfriend came home and found her unresponsive. She also had a large amount of black emesis at the scene. CPR was initiated and ACLS protocol was started and she had a successful return of spontaneous circulation. The patient was intubated and she was hypotensive and started on Levophed. A CT brain was negative for acute abnormalities. A CT scan of the chest showed multiple right-sided rib fractures. She was given a loading dose of Dilantin and placed on Dilantin 100 mg IV every 8 hours. EEG was obtained, which showed diffuse slowing background seen with diffuse cerebral dysfunction, possible anoxia. No evidence of any epileptiform features. The patient was seen by Dr. Sparrow from Neurology Service and was placed on thiamine, multivitamins and folic acid. She was kept on mechanical ventilation, along with bronchodilators. During her ICU course she became hypotensive and was started on Levophed to maintain a MAP greater than 65 mmHg and also was on stress dose steroids. Echocardiogram was obtained which showed an EF of 55%-60%. She also had elevated liver enzymes on arrival and her hepatitis profile was negative. Ultrasound of the liver showed small amount of sludge within the gallbladder without any stones. She also had worsening renal function and was on IV fluids. The patient also was treated with broad-spectrum antibiotics for urinary tract infection and Clostridium difficile colitis. She was also on sliding scale insulin for glycemic control. The patient was placed on Prevacid for GI prophylaxis and SCDs for DVT prophylaxis. The patient was critically ill with anoxic brain injury, renal failure, C. difficile colitis and septic shock. Palliative Care assisted with goals of care. On 07/26/2018 Palliative Care met with the patient's daughter and she elected to proceed with withdrawal of life support and transition to comfort care. She on 07/26/2018. MD TERESO Gordon/delia , 04:15 PM , 04:23 PM
[2018-07-26] MEDS ORDERED: Hydrocortisone Sod Succinate 100 MG Vial IV.PUSH SCH (21:00)
== END 2018-07-26 15:32 | disposition expired ==
LOC: PHED 17:12 → PHEDA 18:02 → HIMC 19:35
PROVIDERS: ADMIT Internal Medicine; ATTEND Internal Medicine